=== PATIENT | female | born 1945 | race Caucasian/White ===

== ENCOUNTER 2016-12-31 07:44 | Emergency (ER) | payer MEDICARE, MEDICAID ==
[2016-12-31 07:57] VITALS: BP 114/64
--- NOTE | 2016-12-31 08:31 | UC ---
[facility], scribed for Stanislaw Greer MD on 12/31/16 at 0816 . General HPI - HPI Summary HPI Summary: 71yo female with cerebral palsy who vomited after breakfast today. Per group home paraprofessional , pt is also sleepier than baseline per group home paraprofessional. Pt denied any pain. BG after meal was in 178. Her baseline BG is around 90s. Hx includes cerebral Palsy, Mental Retardation, DM, and depression. - History of Current Complaint Stated Complaint: VOMITING,SLEEPY,DIABETIC Hx Obtained From: Family/Interior Designer - slurry tank tender Onset/Duration: Sudden Onset, Still Present Onset Severity: Mild Current Severity: None - Allergy/Home Medications Allergies/Adverse Reactions: Allergies Allergy/AdvReac Type Severity Reaction Status Date / Time Cephalexin [From Keflex] Allergy Intermediate Unknown Verified 12/31/16 07:50 Reaction Details Clomipramine [From Anafranil] Allergy Intermediate Unknown Verified 12/31/16 07: 50 Reaction Details Penicillins Allergy Intermediate Unknown Verified 12/31/16 07:50 Reaction Details Trazodone Allergy Unknown Verified 12/31/16 07:50 Reaction Details Home Medications: Home Medications Amlodipine Besylate [Norvasc 5 mg tab] 5 mg PO DAILY 12/31/16 [History Confirmed 12/31/16] Baclofen TAB* [Lioresal TAB*] 10 mg PO TID 12/31/16 [History Confirmed 12/31/16] Memantine TAB* [Namenda TAB*] 10 mg PO BID 12/31/16 [History Confirmed 12/31/16] Metformin ER (NF) 500 mg PO BID 12/31/16 [History Confirmed 12/31/16] Multiple Vitamins W/ Minerals [Multivitamin Adult] 1 chw PO DAILY 12/31/16 [ History Confirmed 12/31/16] PMH/Surg Hx/FS Hx/Imm Hx Endocrine History Of: Reports: Diabetes Cardiovascular History Of: Reports: Hypertension Denies: Congestive Heart Failure GI/ History Of: Denies: Renal Disease Cancer History Of: Reports: Breast Cancer - Surgical History Surgical History: Yes Surgery Procedure, Year, and Place: Right mastectomy 2004 - Family History Known Family History: Negative: Cardiac Disease, Hypertension - Social History Occupation: Disabled Lives: Alone Alcohol Use: None Substance Use Type: None Smoking Status (MU): Never Smoked Tobacco - Immunization History Most Recent Influenza Vaccination: UTD Most Recent Pneumonia Vaccination: UTD Review of Systems Constitutional: Negative Skin: Negative Eyes: Negative ENT: Negative Respiratory: Negative Cardiovascular: Negative Gastrointestinal: Vomiting Genitourinary: Negative Motor: Negative Neurovascular: Negative Musculoskeletal: Negative Neurological: Other - decreased alertness; lethargy Psychological: Negative All Other Systems Reviewed And Are Negative: Yes Physical Exam Triage Information Reviewed: Yes Appearance: Other: - decreased LOC, tired, but responds to voice Vital Signs: Initial Vital Signs Temp 99.5 F 12/31/16 07:51 Pulse 104 12/31/16 07:51 Resp 16 12/31/16 07:51 BP 114/64 12/31/16 07:51 Pulse Ox 96 12/31/16 07:51 Eyes: Positive: Conjunctiva Clear ENT: Positive: Normal ENT inspection, Other: - membranes dry Neck: Negative: Nuchal Rigidity Respiratory: Positive: Chest non-tender, Lungs clear, Normal breath sounds Cardiovascular: Positive: RRR, No Murmur Abdomen Description: Positive: Nontender Musculoskeletal: Positive: Other: - wheel chair bound with contracture, Neurological: Positive: Other: - Responds to voice, opens eyes, but tired, she has contractures, is in a wheelchair, MR, CP Psychological: Positive: Other: - more sleepy from baseline not her self per the aid Skin: Negative: rashes Course/Dx - Course Course Of Treatment: 71 yr old with AMS, vomiting, and MR with Dementia. Cannot assess her in Urgent care enough. I have recommended transport to the ER by ambulance, and the AMA was signed by the aid driving her. - Differential Dx - Multi-Symptom Provider Diagnoses: altered mental status, vomiting, dementia - Physician Notifications Discussed Patient Care With: Dr Wilkerson in the ER [facility] Time Discussed With Above Provider: 08:29 Discharge - Discharge Plan Condition: Good Disposition: AGAINST MEDICAL ADVICE The documentation as recorded by the [facility] accurately reflects the service I personally performed and the decisions made by me, Stanislaw Greer MD.
== END 2016-12-31 08:31 | disposition left against medical advice (07) ==
LOC: UCEAST 07:44
DX: R41.82 Altered mental status, unspecified (principal); R11.10 Vomiting, unspecified; R19.7 Diarrhea, unspecified; G80.9 Cerebral palsy, unspecified; F79 Unspecified intellectual disabilities; E11.9 Type 2 diabetes mellitus without complications; Z79.84 Long term (current) use of oral hypoglycemic drugs; I10 Essential (primary) hypertension; Z85.3 Personal history of malignant neoplasm of breast; Z88.1 Allergy status to other antibiotic agents; Z88.0 Allergy status to penicillin
CPT/HCPCS: 99212; G0463

== ENCOUNTER 2017-04-09 04:24 | Emergency (ER) | payer MEDICARE, MEDICAID ==
[2017-04-09 05:11] LABS: Hematocrit 35 % (35-47); Hemoglobin 11.4 g/dl (12.0-16.0); Mean Corpuscular HGB Conc 32 g/dl (31-36); Mean Corpuscular Hemoglobin 26 pg (27-31); Mean Corpuscular Volume 80 fL (80-97); Mean Platelet Volume 9 um3 (7.4-10.4); Red Blood Count 4.42 10^6/ul (4.0-5.4); Red Cell Distribution Width 18 % (10.5-15)
--- NOTE | 2017-04-09 05:17 | ED ---
Taya Fregoso Edward, scribed for Benedict Ferrara MD on 04/09/17 at 0428 . 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 PMHx Dementia, cerebral palsy. Lives in [facility]. Pt has had normal bowel movements, per EMS. LEVEL 5 CAVEAT DUE TO PT BEING UNRESPONSIVE - History Of Current Complaint Hx Obtained From: EMS Hx From Patient Unobtainable Due To: Dementia Associated Signs And Symptoms: Positive: Vomiting - Blood in emesis - Allergies/Home Medications Allergies/Adverse Reactions: Allergies Allergy/AdvReac Type Severity Reaction Status Date / Time Penicillins Allergy Intermediate Unknown Verified 12/31/16 07:50 Reaction Details ALINA Inhibitors Allergy Anaphylatic Verified 04/09/17 04:33 Shock Cephalosporins Allergy Unknown Verified 04/09/17 04:33 Reaction Details Tomato Allergy Hives Verified 01/01/17 17:39 Trazodone Allergy Unknown Verified 12/31/16 07:50 Reaction Details Tricyclic Antidepressants Allergy Unknown Verified 04/09/17 04:33 Reaction Details PMH/Surg Hx/FS Hx/Imm Hx Previously Healthy: No Endocrine/Hematology History: Reports: Hx Diabetes Denies: Hx Systemic Lupus Erythematosus Cardiovascular History: Reports: Hx Hypertension Denies: Hx Congestive Heart Failure History: Denies: Hx Dialysis, Hx Renal Disease Musculoskeletal History: Denies: Hx Rheumatoid Arthritis Sensory History: Reports: Hx Contacts or Glasses Denies: Hx Hearing Aid Opthamlomology History: Reports: Hx Contacts or Glasses Neurological History: Reports: Other Neuro Impairments/Disorders - cerebral palsy - Cancer History Cancer Type, Location and Year: breast 2005 Hx Chemotherapy: Yes - chemo 2004 per heel top lift splitter Hx Radiation Therapy: Yes - 2005 - Surgical History Surgery Procedure, Year, and Place: Right mastectomy 2004 - Family History Known Family History: Negative: Cardiac Disease, Hypertension - Social History Alcohol Use: None Substance Use Type: Reports: None Smoking Status (MU): Never Smoked Tobacco Review of Systems - ROS Summary Review of Systems Summary: LEVEL 5 CAVEAT DUE TO PT BEING UNRESPONSIVE Positive: Vomiting - Blood in vomit All Other Systems Reviewed And Are Negative: No Physical Exam Triage Information Reviewed: Yes Vital Signs Reviewed: Yes Completion Of Physical Exam Limited Due To: Dementia Appearance: Positive: No Pain Distress Skin: Positive: Warm Head/Face: Positive: Normal Head/Face Inspection Eyes: Positive: LESLIE ENT: Positive: Normal ENT inspection Neck: Positive: Supple Respiratory/Lung Sounds: Positive: Clear to Auscultation, Breath Sounds Present Cardiovascular: Positive: RRR Abdomen Description: Positive: Nontender, Soft Bowel Sounds: Positive: Present Diagnostics - Laboratory Result Diagrams: 04/09/17 04:51 04/09/17 04:51 Lab Statement: Any lab studies that have been ordered have been reviewed, and results considered in the medical decision making process. 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 PMHx Dementia, cerebral palsy. [facility] Pt has had normal bowel movements, per EMS. LEVEL 5 CAVEAT DUE TO PT BEING UNRESPONSIVE. Pt will be d/c home. - Diagnoses Provider Diagnoses: Vomiting Discharge - Discharge Plan Condition: Stable Disposition: ALF FACILITY Patient Education Materials: Acute Nausea and Vomiting (ED) Referrals: Rose Hebert MD [Primary Care Provider] - 3 Days (Please f/u in 2-3 days) The documentation as recorded by the [facility] accurately reflects the service I personally performed and the decisions made by , Benedict Ferrara MD.
[2017-04-09 05:27] LABS: Albumin 3.6 g/dL (3.2-5.2); BUN/Creatinine Ratio 38.8 (8-20); C Reactive Protein 2.48 mg/L (< 5.00); Calcium 8.7 mg/dL (8.6-10.3); EGFR African American 159.2 (>60); EGFR Non-African American 123.8 (>60); Globulin 2.4 g/dL (2-4); Total Bilirubin 0.2 mg/dL (0.2-1.0)
[2017-04-09 06:49] VITALS: BP 144/65
== END 2017-04-09 07:51 ==
LOC: ED 04:24
DX: K92.0 Hematemesis (principal)
CPT/HCPCS: 36415; 80053; 83605; 83690; 83735; 85025; 86140; 99283

== ENCOUNTER 2017-05-29 21:22 | Emergency (ER) | payer MEDICARE, MEDICAID ==
--- NOTE | 2017-05-29 22:28 | ED ---
Medical Screening - HPI Summary HPI Summary: Pt is a resident at [facility] and presents here tonight for accidental administration of another's resident's medications. These include: lamotrigine 100mg, calcium with D 500mg, hydroxyzine hcl 25mg, phenobarbitol 97.2mg, seroquel XR 50mg. Of note, she typically takes namenda 10mg 2 x day, zoloft 150mg, baclofen 10mg 3 x day. She takes metformin 500mg 1 x day with food (well controlled per staff) . Also pravastatin and ASA. She is on a variety of other medications, 2 antibiotics for prophylactic treatment of UTI's and others are PRN. Staff is concerned she's more sleepy since taking these. Otherwise, no complaints. - History of Current Complaint Chief Complaint: EDOverdose Stated Complaint: OVERDOSE Time Seen by Provider: 05/29/17 21:54 PMH/Surg Hx/FS Hx/Imm Hx Previously Healthy: Yes Endocrine/Hematology History: Reports: Hx Diabetes - controlled w/ metformin 500mg 1 x day and lifestyle Denies: Hx Systemic Lupus Erythematosus Cardiovascular History: Reports: Hx Hypercholesterolemia - ?takes statin, Hx Hypertension - med d/c'd Denies: Hx Congestive Heart Failure History: Denies: Hx Dialysis, Hx Renal Disease Musculoskeletal History: Denies: Hx Rheumatoid Arthritis Sensory History: Reports: Hx Contacts or Glasses Denies: Hx Hearing Aid Opthamlomology History: Reports: Hx Contacts or Glasses Neurological History: Reports: Other Neuro Impairments/Disorders - cerebral palsy - takes baclofen Psychiatric History: Reports: Hx Depression - zoloft - Cancer History Cancer Type, Location and Year: breast 2004 Hx Chemotherapy: Yes - chemo 2004 per utility accounts director Hx Radiation Therapy: Yes - 2004 - Surgical History Surgery Procedure, Year, and Place: Right mastectomy 2004 Infectious Disease History: No Infectious Disease History: Denies: Traveled Outside the [place] in Last 30 Days - Family History Known Family History: Negative: Cardiac Disease, Hypertension - Social History Occupation: Disabled Lives: Assisted Living Alcohol Use: None Hx Substance Use: No Substance Use Type: Reports: None Hx Tobacco Use: No Smoking Status (MU): Never Smoked Tobacco Review of Systems - ROS Summary Review of Systems Summary: Level 5 caveat - pt only responds to physical stimuli w/ moaning - unable to follow commands Positive: Fatigue - as in HPI All Other Systems Reviewed And Are Negative: Yes Physical Exam Triage Information Reviewed: Yes Vital Signs On Initial Exam: Initial Vitals Pulse Pulse Ox 78 99 05/29/17 21:31 05/29/17 21:31 Vital Signs Reviewed: Yes Appearance: Positive: No Pain Distress - resting comfortably on stretcher, breathing easily and vitals WNL, Well-Nourished Skin: Positive: Warm, Dry Head/Face: Positive: Normal Head/Face Inspection - no gross deformity Eyes: Positive: LESLIE - had to manually lift each lid to check pupils as she does not do this with verbal or physical stimuli ENT: Positive: Hearing grossly normal - assumed as she responds with moaning to noise, Pharynx normal - mucosa moist Neck: Positive: Supple Respiratory/Lung Sounds: Positive: Clear to Auscultation, Breath Sounds Present. Negative: Rales, Rhonchi, Stridor, Wheezes Cardiovascular: Positive: Normal, RRR, Pulses are Symmetrical in both Upper and Lower Extremities, S1, S2. Negative: Murmur, Rub, Leg Edema Left, Leg Edema Right Abdomen Description: Positive: No Organomegaly, Soft Musculoskeletal: Positive: Other - hands appeared contracted Neurological: Positive: Other - heart rate and resp rate increase with sternal rub Psychiatric: Positive: Other - unable to assess given current state but staff reports she's typically chatty and easy to rouse even after asleep Diagnostics - Vital Signs Vital Signs Temp Pulse Resp BP Pulse Ox 05/29/17 21:50 98.5 F 75 12 129/58 100 05/29/17 21:33 129/58 05/29/17 21:31 78 99 - Laboratory Result Diagrams: 05/30/17 02:05 05/30/17 02:05 Lab Statement: Any lab studies that have been ordered have been reviewed, and results considered in the medical decision making process. Re-Evaluation - Re-Evaluation First Eval Re-Evaluation Time: 07:55 - Pt is laughing, smiling, responsive, acting her usual self per aide. Dr. Ram consulted. Change: Improved Course/Dx - Course Course Of Treatment: Spoke w/ Annetta at poison control - advised pt just needs to be monitored until meds wear off as this is not overdose but rather administration of medications she's simply not accustomed to taking - explained we are ordering ECG and glucose POC assessement - no further action at this time. Signed out to Dr. Boyd. - Diagnoses Provider Diagnoses: Drug ingestion, accidental Discharge - Discharge Plan Condition: Good Disposition: HOME Patient Education Materials: Medication Safety for Children (ED) Referrals: Rose Hebert MD [Primary Care Provider] - Additional Instructions: Please note that the discharge instructions describe medication safety in children. The child aspect does not pertain to Ms Paulino, but the symptoms to watch for, do pertain to Ms Paulino. Ms Paulino was observed in the ER for 11 hours after the accidental overdose of phenobarbital, lamotrigine, hydroxyzine, calcium and seroquel. After the 11 hrs, she was responsive, communicative and back to her baseline per the aide who had been with her all night. She was seen by the hospitalist physician, Dr. Ram, who agreed with Dr. Boyd that she was safe for discharge. She may resume her usual activities. She should resume her usual medications. Return to the ER if she has any new or worsening symptoms.
[2017-05-30] MEDS ORDERED: NS 0.9% 1000 ML* 1,000 ML IV ONE (01:43)
[2017-05-30 02:32] LABS: Hematocrit 35 % (35-47); Hemoglobin 10.9 g/dl (12.0-16.0); Mean Corpuscular HGB Conc 32 g/dl (31-36); Mean Corpuscular Hemoglobin 25 pg (27-31); Mean Corpuscular Volume 79 fL (80-97); Mean Platelet Volume 9 um3 (7.4-10.4); Red Blood Count 4.36 10^6/ul (4.0-5.4); Red Cell Distribution Width 16 % (10.5-15); White Blood Count 5.3 10^3/ul (3.5-10.8)
[2017-05-30 02:43] LABS: ALT 10 U/L (7-52); AST 15 U/L (13-39); Albumin 3.7 g/dL (3.2-5.2); Alkaline Phosphatase 40 U/L (34-104); Anion Gap 6 mmol/L (2-11); Blood Urea Nitrogen 15 mg/dL (6-24); CO2 Carbon Dioxide 27 mmol/L (22-32); Calcium 8.9 mg/dL (8.6-10.3); Chloride 107 mmol/L (101-111); Globulin 2.6 g/dL (2-4); Glucose 101 mg/dL (70-100); Sodium 140 mmol/L (133-145); Total Protein 6.3 g/dL (6.4-8.9)
--- NOTE | 2017-05-30 08:21 | ED ---
Bridgett Fregoso Thomas, scribed for Tonia Body MD on 05/30/17 at 0433 . Progress - Progress Note Progress Note: The patient is a sign out from Jenni CIFUENTES at shift change pending disposition. With tactile stimulation, she says mmm but does not open her eyes. Her BP is 96/50, her pulse is 70, and her SaO2 is 100. I consulted with Dr. Peralta, continuous mining machine company miner, who agrees to admit the patient for observation to [place] [id number]: pt is awake, responsive, acting her usual self, can be DC'd back to her long term. Dx: accidental drug ingestion condition: stable disposition: home Re-Evaluation - Re-Evaluation First Eval Re-Evaluation Time: 07:55 - Pt is laughing, smiling, responsive, acting her usual self per aide. Dr. Ram consulted. Change: Improved Course/Dx - Course Course Of Treatment: Pt was observed. Labs and EKG were obtained. Pt resumed normal mental status while in ED, able to be DC'd to her long term. - Diagnoses Provider Diagnoses: Drug ingestion, accidental The documentation as recorded by the Bridgett monet Thomas accurately reflects the service I personally performed and the decisions made by Oliver cox Barbara J, MD.
[2017-05-30 08:54] VITALS: BP 84/38
--- NOTE | 2017-05-30 09:38 | CONS ---
CONSULTATION REPORT: DATE OF CONSULT: 05/30/17 HISTORY OF PRESENT ILLNESS: The patient is a 71-year-old female, resident of [facility] with past medical history of dementia, developmental delay, depression, hypertension, on no meds, hyperlipidemia, diabetes, right breast cancer, GERD, who was given another patient's medications at approximately 9 p.m. last night, which included Lamictal 100 mg, phenobarbital 97.2 mg, hydroxyzine 25 mg, calcium 500 mg, Seroquel extended release 50 mg. This was apparently on top of her regular meds, which include Zoloft 150 mg, Bactrim rotating with nitrofurantoin, baclofen 10 mg t.i.d., metformin twice a day, and Namenda 10 mg b.i.d. She was brought to the emergency room for concern for sedation, altered mental status, was not readily arousable overnight. She had an EKG done, which showed a QTc of 446, T-wave inversion in V1, heart rate of 76. Her blood pressures were on the low side overnight in the mostly 90s/50. She was afebrile. Otherwise hemodynamically stable with heart rates in the 60s to 70s. At the time of my evaluation at 7:35 a.m., the patient had become easily arousable, opening her eyes, having conversations with the physician aide, Gamal Pittman, who has been with her overnight and remarks that she is back to her baseline self. She knows her name, is joking about her boyfriend and per Gamal Pittman is completely back to her normal self. I have discussed with emergency room physician who had been in contact with Poison Control overnight in terms of the desired length of evaluation that I think the patient does not need to be further admitted to the hospital given her rapid improvement in mental status and no concerning hemodynamic instability, and that patient can be discharged back to [facility] this a.m. PHYSICAL EXAM: General: No acute distress. Easily arousable. HEENT: No scleral icterus. Opens eyes easily. Neck: Supple. No cervical lymphadenopathy. Cardiovascular: Regular rate and rhythm. No murmurs, rubs, or gallops. Respiratory: Clear to auscultation bilaterally with no wheezing, rales, or rhonchi. Abdomen: Soft, nontender, nondistended. No guarding. No rebound. No Glover's sign. Extremities: Warm and well perfused. No peripheral edema. Skin: No lesions noted. Neuro: Oriented to person. DIAGNOSTIC STUDIES/LABORATORY DATA: Labs are significant for a white count of 5.3, hemoglobin 10.9, platelets 180, hematocrit 35. Sodium 140, potassium 4.0, chloride 107, bicarbonate 27, BUN 15, creatinine 0.60, glucose 101. IMPRESSION: Robb Paulino is a 71-year-old female with past medical history of developmental delay, dementia, multiple other comorbidities, taking Zoloft 150 mg daily, who was accidentally given Lamictal 100 mg, phenobarbital 97.2 mg, hydroxyzine 25 mg, and Seroquel extended release 50 mg (a different patient's medications). Initially was having concern for an altered mental status and lethargy, which has now resolved. She is hemodynamically stable. No conduction abnormalities. QTc is 446, within normal limits for a female. The patient is considered stable for discharge back to [facility]. Thank you for this interesting consult. [id number]/[facility] #: [id number] [facility] HOSPITALGigi
== END 2017-05-30 08:30 | disposition home or self-care (01) ==
LOC: ED 21:22
DX: T50.905A Adverse effect of unspecified drugs, medicaments and biological substances, initial encounter (principal); Y92.9 Unspecified place or not applicable; R53.83 Other fatigue; E11.9 Type 2 diabetes mellitus without complications
CPT/HCPCS: 36415; 80053; 80184; 85025; 93005; 96360; 99285

== ENCOUNTER 2018-09-27 19:49 | Emergency (ER) | payer MEDICARE, MEDICAID | END 2018-09-27 19:50 | disposition left against medical advice (07) | LOC: UCEAST 19:49 | DX: Z53.21 Procedure and treatment not carried out due to patient leaving prior to being seen by health care provider (principal) ==

== ENCOUNTER 2018-09-27 21:05 | Emergency (ER) | payer MEDICARE, MEDICAID ==
--- NOTE | 2018-09-27 21:58 | ED ---
Upper Extremity Pain - HPI Summary HPI Summary: 73-year-old [facility] patient with history of MR and dementia who is minimally verbal presents with 3 days history of left hand swelling. No definite injury. Caregiver reports that there appears to be pain when it is touched. There is no fever, but has been some redness. They report that hand contractures are chronic and that she is fully wheelchair bound. Patient has not been feeding herself as usual with the tender hand. Patient is unable to contribute to medical history and his level V caveat due to dementia. There is said to of called the primary care physician who reported that she was comfort care measures however there is no paperwork indicating this in her folder. - History of Current Complaint Chief Complaint: EDGeneral Stated Complaint: BOTH HANDS SWOLLEN Time Seen by Provider: 09/27/18 21:33 Hx Obtained From: Family/Principal Account Clerk, Medical Records - No DNR or MO LST form is present. Hx From Patient Unobtainable Due To: Dementia - Allergies/Home Medications Allergies/Adverse Reactions: Allergies Allergy/AdvReac Type Severity Reaction Status Date / Time OLAYINKA Inhibitors Allergy Anaphylatic Verified 09/27/18 21:19 Shock Cephalosporins Allergy Unknown Verified 09/27/18 21:19 Reaction Details Penicillins Allergy Unknown Verified 09/27/18 21:19 Reaction Details tomato Allergy Hives Verified 09/27/18 21:19 trazodone Allergy Unknown Verified 09/27/18 21:19 Reaction Details Tricyclic Compounds Allergy Unknown Verified 09/27/18 21:19 Reaction Details PMH/Surg Hx/FS Hx/Imm Hx Previously Healthy: No - MR, dementia, nonverbal Endocrine/Hematology History: Reports: Hx Diabetes - controlled w/ metformin 500mg 1 x day and lifestyle Denies: Hx Systemic Lupus Erythematosus Cardiovascular History: Reports: Hx Hypercholesterolemia - ?takes statin, Hx Hypertension - med d/c'd Denies: Hx Congestive Heart Failure History: Denies: Hx Dialysis, Hx Renal Disease Musculoskeletal History: Denies: Hx Rheumatoid Arthritis Sensory History: Reports: Hx Contacts or Glasses Denies: Hx Hearing Aid Opthamlomology History: Reports: Hx Contacts or Glasses Neurological History: Reports: Other Neuro Impairments/Disorders - cerebral palsy - takes baclofen Psychiatric History: Reports: Hx Depression - zoloft - Cancer History Cancer Type, Location and Year: breast 2005 Hx Chemotherapy: Yes - chemo 2005 per oyster fisherman Hx Radiation Therapy: Yes - 2004 - Surgical History Surgery Procedure, Year, and Place: Right mastectomy 2004 Infectious Disease History: No Infectious Disease History: Denies: Traveled Outside the [place] in Last 30 Days - Family History Known Family History: Negative: Cardiac Disease, Hypertension - Social History Alcohol Use: None Hx Substance Use: No Substance Use Type: Reports: None Hx Tobacco Use: No Smoking Status (MU): Never Smoked Tobacco Review of Systems All Other Systems Reviewed And Are Negative: No - Comments Additional Review of Systems Comments: Unable to obtain due to dementia Physical Exam Triage Information Reviewed: Yes Vital Signs On Initial Exam: Initial Vitals Temp Pulse Resp BP Pulse Ox 98.7 F 90 16 143/91 97 09/27/18 21:13 09/27/18 21:13 09/27/18 21:13 09/27/18 21:13 09/27/18 21:13 Vital Signs Reviewed: Yes Appearance: Positive: Pain Distress - When left hand is manipulated Skin: Positive: Warm, Dry, Other - There is minimal skin breakdown at her contractured left hand at the base of the long finger without redness. Head/Face: Positive: Normal Head/Face Inspection Eyes: Positive: EOMI ENT: Positive: Normal ENT inspection Respiratory/Lung Sounds: Positive: Clear to Auscultation Cardiovascular: Positive: RRR Abdomen Description: Positive: Nontender Musculoskeletal: Positive: Other - Tenderness dorsally in the left hand over the metacarpals of the long and ring fingers without deformity. Minimal redness and mild to moderate swelling. No pain with manipulation of the elbow or forearm. No pain with manipulation of the left shoulder. Neurological: Positive: Other - Patient will respond verbally with "oww" only. Otherwise keeps eyes closed but does move upper extremities spontaneously. Contractured hands and feet. - Stow Coma Scale Best Eye Response: 2 - To Pain Best Motor Response: 5 - Purposeful Movement Best Verbal Response: 4 - Confused Coma Scale Total: 11 Diagnostics - Vital Signs Vital Signs Temp Pulse Resp BP Pulse Ox 09/27/18 21:52 89 95 09/27/18 21:33 92 132/71 97 09/27/18 21:13 98.7 F 90 16 143/91 97 - Laboratory Lab Statement: Any lab studies that have been ordered have been reviewed, and results considered in the medical decision making process. - Radiology left hand Radiology Interpretation Completed By: ED Physician - No acute fracture, limited by contracture Course/Dx - Course Course Of Treatment: Nurse's notes reviewed. Patient with mild swelling to the dorsum of the left hand with contractures in both hands. She has no pain in the wrist, elbow/forearm or shoulder. There is no evidence for infection. X- rays are negative. Appears to be contused or possibly arthritic. Patient is known to be comfort care measures her primary care physician. Olayinka wrap applied and discharged to follow up on Tylenol. - Diagnoses Differential Diagnosis/HQI/PQRI: Positive: Contusion, Fracture (Closed), Strain , Sprain Provider Diagnoses: Contusion of left hand, Dementia Discharge - Sign-Out/Discharge Documenting (check all that apply): Patient Departure - Discharge Plan Condition: Stable Disposition: HOME Patient Education Materials: Contusion in Adults (ED) Referrals: Rose Hebert MD [Primary Care Provider] - Additional Instructions: Call primary care physician first thing in the morning to schedule prompt follow -up. Olayinka wrap for comfort. Ice as needed. Ensure that this does not get confused while sitting in the wheelchair. Return if worse or other concerns. Tylenol 500 mg every 6 hours as needed for discomfort. - Billing Disposition and Condition Condition: STABLE Disposition: Home - Attestation Statements Document Initiated by Scribe: No
[2018-09-27] MEDS ORDERED: Acetaminophen TAB* 325 MG PO ONE (22:46)
[2018-09-27 23:56] VITALS: BP 120/63
== END 2018-09-28 | disposition home or self-care (01) ==
LOC: ED 21:05
DX: S60.222A Contusion of left hand, initial encounter (principal); X58.XXXA Exposure to other specified factors, initial encounter; Y92.9 Unspecified place or not applicable; F03.90 Unspecified dementia, unspecified severity, without behavioral disturbance, psychotic disturbance, mood disturbance, and anxiety; F79 Unspecified intellectual disabilities; E11.9 Type 2 diabetes mellitus without complications; Z79.84 Long term (current) use of oral hypoglycemic drugs; F32.9 Major depressive disorder, single episode, unspecified; Z88.1 Allergy status to other antibiotic agents; Z88.0 Allergy status to penicillin; Z88.8 Allergy status to other drugs, medicaments and biological substances
CPT/HCPCS: 99282

== ENCOUNTER 2019-03-18 08:41 | Emergency (ER) | payer MEDICARE, MEDICAID ==
[2019-03-18 08:51] VITALS: BP 125/73
--- NOTE | 2019-03-18 09:12 | UC ---
Lower Extremity/Ankle HPI - HPI Summary HPI Summary: patient is a 73-year-old female who presents to the urgent care with caregiver with a chief complaint of a red and painful right toe. They have noticed his symptoms started yesterday and today he became worse therefore they decided to come to the urgent care for further assessment. No fevers no chills patient is wheelchair-bound. - History of Current Complaint Chief Complaint: UCLowerExtremity Stated Complaint: RED TOE Time Seen by Provider: 03/18/19 08:55 Hx Obtained From: Family/Music Therapist [employer] Onset/Duration: Gradual Onset Pain Intensity: 3 - Allergies/Home Medications Allergies/Adverse Reactions: Allergies Allergy/AdvReac Type Severity Reaction Status Date / Time ALINA Inhibitors Allergy Anaphylatic Verified 03/18/19 08:52 Shock Cephalosporins Allergy Unknown Verified 03/18/19 08:52 Reaction Details Penicillins Allergy Unknown Verified 03/18/19 08:52 Reaction Details tomato Allergy Hives Verified 03/18/19 08:52 trazodone Allergy Unknown Verified 03/18/19 08:52 Reaction Details Tricyclic Compounds Allergy Unknown Verified 03/18/19 08:52 Reaction Details Home Medications: Home Medications Haloperidol CONC. EMY (NF) [Haloperidol CONC. SOLUTION (NF)] 1 ml PO DAILY 03/18 [History Confirmed 03/18/19] PMH/Surg Hx/FS Hx/Imm Hx Endocrine History: Diabetes, Hypothyroidism Neurological History: Dementia - Surgical History Surgical History: Yes Surgery Procedure, Year, and Place: Right mastectomy 2004 - Family History Known Family History: Positive: Non-Contributory Negative: Cardiac Disease, Hypertension - Social History Alcohol Use: None Substance Use Type: None Smoking Status (MU): Never Smoked Tobacco - Immunization History Most Recent Influenza Vaccination: UTD Most Recent Pneumonia Vaccination: UTD Review of Systems All Other Systems Reviewed And Are Negative: Yes Constitutional: Positive: Negative Skin: Positive: Other - toe pain Eyes: Positive: Negative ENT: Positive: Negative Respiratory: Positive: Negative Cardiovascular: Positive: Negative Gastrointestinal: Positive: Negative Genitourinary: Positive: Negative Motor: Positive: Negative Neurovascular: Positive: Negative Musculoskeletal: Positive: Negative Neurological: Positive: Negative Psychological: Positive: Negative Is Patient Immunocompromised?: Yes Physical Exam - Summary Physical Exam Summary: VITAL SIGNS: Reviewed. GENERAL: Patient is not in any acute respiratory distress. HEAD AND FACE: No signs of trauma. No ecchymosis, hematomas or skull depressions. No sinus tenderness. EYES: PERRLA, EOMI x 2, No injected conjunctiva, no nystagmus. EARS: Hearing grossly intact. Ear canals and tympanic membranes are within normal limits. MOUTH: Oropharynx within normal limits. NECK: Supple, trachea is midline, no adenopathy, no JVD, no carotid bruit, no c- spine tenderness, neck with full ROM. CHEST: Symmetric, no tenderness at palpation LUNGS: Clear to auscultation bilaterally. No wheezing or crackles. CVS: Regular rate and rhythm, S1 and S2 present, no murmurs or gallops appreciated. ABDOMEN: Soft, non-tender. No signs of distention. No rebound no guarding, and no masses palpated. Bowel sounds are normal. EXTREMITIES: lower extremity contractures. right toe with erythema surrounding the medial aspect of the great toe. No abscess formation. NEURO: Alert not oriented SKIN: Dry and warm Triage Information Reviewed: Yes Appearance: Well-Appearing Vital Signs: Initial Vital Signs Temp 98 F 03/18/19 08:48 Pulse 75 03/18/19 08:48 Resp 18 03/18/19 08:48 BP 125/73 03/18/19 08:48 Pulse Ox 100 03/18/19 08:48 Vital Signs Reviewed: Yes Lower Extremity Course/Dx - Course Course Of Treatment: he since that the patient has an infection in the right side of the toe. He doesn't have a full ingrown toenail. I can't small area of the nail and a little bit of pus came out. Therefore I apply bacitracin and the patient was placed in Bactrim, follow-up with the primary care physician on Wednesday. She will also follow-up with her stretcher helper and . The patient and the patient's caregiver were given instructions to return to the emergency department if any symptoms worsen. They understand and agree. - Differential Dx/Diagnosis Provider Diagnosis: Cellulitis of great toe Discharge - Sign-Out/Discharge Documenting (check all that apply): Patient Departure All imaging exams completed and their final reports reviewed: No Studies - Discharge Plan Condition: Stable Disposition: HOME Prescriptions: Sulfamethox/Trimethoprim DS* [Bactrim DS 800/160 TAB*] 1 tab PO BID #20 tab Patient Education Materials: Cellulitis (DC) Referrals: Amada Felton MD [Primary Care Provider] - Additional Instructions: Take medications as instructed Increase your fluid intake F/U with PCP in the next 2-3 days Return to the UC if symptoms worsen - Billing Disposition and Condition Condition: STABLE Disposition: Home
== END 2019-03-18 09:15 | disposition home or self-care (01) ==
LOC: UCEAST 08:41
DX: L03.031 Cellulitis of right toe (principal); E11.9 Type 2 diabetes mellitus without complications; E03.9 Hypothyroidism, unspecified; F03.90 Unspecified dementia, unspecified severity, without behavioral disturbance, psychotic disturbance, mood disturbance, and anxiety; Z88.0 Allergy status to penicillin; Z90.11 Acquired absence of right breast and nipple
CPT/HCPCS: 99212; G0463

== ENCOUNTER 2019-04-02 20:36 | Inpatient (IN) | payer MEDICARE, MEDICAID ==
[2019-04-02] MEDS ORDERED: NS 0.9% 1000 ML** 1,000 ML IV.FLUID IV ONE (20:50)
[2019-04-02] MEDS ORDERED: Acetaminophen SUPP* 650 MG SUPP PR ONE (20:54)
--- NOTE | 2019-04-02 21:01 | ED ---
HPI Febrile Illness - HPI Summary HPI Summary: LEVEL 5 CAVEAT DUE TO NON-VERBAL STATE 73 year old F brought to [facility] by EMS accompanied by caregiver with a chief complaint of general illness and fever since earlier this evening, 04/02/19. Caregiver reports fever, vomiting, cold to touch, shaking, loss of appetite, and lack of drinking liquids. Caregiver reports patient recently stopped taking chronic abx. Patient denies any body pain or abdomen pain. - History of Current Complaint Time Seen by Provider: 04/02/19 20:45 Hx Obtained From: Family/Chipping Machine Operator Hx From Patient Unobtainable Due To: Other - nonverbal- did not respond to questions but seemed to respond to palpation Onset/Duration: Started Hours Ago, Still Present Timing: Constant Aggravating Factors: Nothing Alleviating Factors: Nothing Associated Signs and Symptoms: Vomiting, Other: - reports fever, cold to touch, shaking, loss of appetite, and lack of drinking liquids denies any body pain or abdomen pain. - Additional Pertinent History Primary Care Physician: SALVADOR - Allergy/Home Medications Allergies/Adverse Reactions: Allergies Allergy/AdvReac Type Severity Reaction Status Date / Time ALINA Inhibitors Allergy Anaphylatic Verified 03/18/19 08:52 Shock Cephalosporins Allergy Unknown Verified 03/18/19 08:52 Reaction Details Penicillins Allergy Unknown Verified 03/18/19 08:52 Reaction Details tomato Allergy Hives Verified 03/18/19 08:52 trazodone Allergy Unknown Verified 03/18/19 08:52 Reaction Details Tricyclic Compounds Allergy Unknown Verified 03/18/19 08:52 Reaction Details PMH/Surg Hx/FS Hx/Imm Hx Previously Healthy: No - LEVEL 5 CAVEAT Endocrine/Hematology History: Reports: Hx Diabetes - controlled w/ metformin 500mg 1 x day and lifestyle Denies: Hx Systemic Lupus Erythematosus Cardiovascular History: Reports: Hx Hypercholesterolemia - ?takes statin, Hx Hypertension - med d/c'd Denies: Hx Congestive Heart Failure History: Denies: Hx Dialysis, Hx Renal Disease Musculoskeletal History: Denies: Hx Rheumatoid Arthritis Sensory History: Reports: Hx Contacts or Glasses Denies: Hx Hearing Aid Opthamlomology History: Reports: Hx Contacts or Glasses Neurological History: Reports: Other Neuro Impairments/Disorders - cerebral palsy - takes baclofen Psychiatric History: Reports: Hx Depression - zoloft - Cancer History Cancer Type, Location and Year: breast 2004 Hx Chemotherapy: Yes - chemo 2005 per distribution center manager Hx Radiation Therapy: Yes - 2004 - Surgical History Surgery Procedure, Year, and Place: Right mastectomy 2004 Infectious Disease History: Denies: Traveled Outside the [place] in Last 30 Days - Family History Known Family History: Positive: Non-Contributory Negative: Cardiac Disease, Hypertension - Social History Alcohol Use: None Hx Substance Use: No Substance Use Type: Reports: None Hx Tobacco Use: No Smoking Status (MU): Never Smoked Tobacco Review of Systems - ROS Summary Review of Systems Summary: LEVEL 5 CAVEAT DUE TO NON-VERBAL STATE Positive: Fever, Other - shaking, cold to touch Positive: Vomiting All Other Systems Reviewed And Are Negative: No Physical Exam - Summary Physical Exam Summary: PATIENT IS A LEVEL 5 CAVEAT DUE TO NON-VERBAL. Appearance: Developmentally delayed women lying in bed in no acute distress Skin: Warm, dry, no obvious rash Eyes: sclera anicteric, no conjunctival pallor ENT: mucous membranes moist Neck: deferred Respiratory: No signs of respiratory distress Cardiovascular: Appears well perfused, pulses are nml Abdomen: deferred Musculoskeletal: Moving all 4 extremities without obvious discomfort Neurological: Did not answer questions Psychiatric: affect is normal, does not appear anxious or depressed Triage Information Reviewed: Yes Vital Signs Reviewed: Yes Diagnostics - Laboratory Result Diagrams: 04/04/19 04:19 04/04/19 04:19 Lab Statement: Any lab studies that have been ordered have been reviewed, and results considered in the medical decision making process. Course/Dx - Course Course Of Treatment: LEVEL 5 CAVEAT DUE TO NON-VERBAL STATE. 73 year old F brought to [facility] by EMS accompanied by caregiver with a chief complaint of general illness and fever since earlier this evening, 04/02/19. Caregiver reports fever, vomiting, cold to touch, shaking, loss of appetite, and lack of drinking liquids. Caregiver reports patient recently stopped taking chronic abx. Patient denies any body pain or abdomen pain. Physical exam reveals no abnormalities developmentally delayed women, no acute distress, and did not answer questions. Blood work shows no abnormalities except for MCV 79 L, MCH 26 L, RDW 17 H, Absolute Lymphs 0.2 L, Potassium 3.3 L, BUN/Creatinine Ratio 31.1 H, Glucose 113 H, and Lactic Acid 2.4 H. Urinalysis shows no abnormalities except for Urine Nitrate Positive A, Ur Leukocyte Esterase Trace A, Urine WBC 1+ (6-10/hpf ) A, Ur Squamous Epith Cells Present A, Urine Bacteria 3+ A, and Urine Ascorbic Acid A. Patient was given 166.668 mls/hr vanomycin Hcl in sodium chloride, 650 mg acetaminophen, 100 mls/hr levofloxacin/dextrose, and 1500 ml saline IV. Chest X-Ray reveals no acute process. Physician discusses admission with Dr. Salgado, who accepts patient for admission. Patient will be admitted. - Diagnoses Provider Diagnoses: Fever, UTI (urinary tract infection) - Provider Notifications Discussed Care Of Patient With: Adam Salgado Time Discussed With Above Provider: 04:30 Instructed by Provider To: Admit As Inpatient Discharge - Sign-Out/Discharge Documenting (check all that apply): Patient Departure - admit Patient Received Moderate/Deep Sedation with Procedure: No - Discharge Plan Condition: Fair Disposition: ADMITTED TO [facility] - Billing Disposition and Condition Condition: FAIR Disposition: Admitted to [facility] - Attestation Statements Document Initiated by Scribe: Yes Documenting Scribe: Naty Mahoney Provider For Whom Scribe is Documenting (Include Credential): Dr. Krishna Estrada MD Scribe Attestation: Naty Fregoso, scribed for Dr. Krishna Estrada MD on 04/04/19 at 1808. Scribe Documentation Reviewed: Yes Provider Attestation: The documentation as recorded by the Naty monet accurately reflects the service I personally performed and the decisions made by me, Dr. Krishna Estrada MD Status of Scribe Document: Viewed
[2019-04-02 21:35] LABS: ABS Lymphocytes 0.2 10^3/ul (1.0-4.8); Eosinophil % 0.1 %; Hematocrit 37 % (35-47); Hemoglobin 12.3 g/dL (12.0-16.0); Lymphocyte % 3.8 %; Mean Corpuscular HGB Conc 33 g/dL (31-36); Mean Corpuscular Hemoglobin 26 pg (27-31); Mean Corpuscular Volume 79 fL (80-97); Mean Platelet Volume 7.9 fL (7.4-10.4); Platelet Count 177 10^3/uL (150-450); Red Blood Count 4.76 10^6 /uL (3.70-4.87); Red Cell Distribution Width 17 % (10-15); White Blood Count 6.3 10^3/uL (3.5-10.8)
[2019-04-02 21:38] LABS: Urine Appearance Cloudy; Urine Bacteria 3+ (Absent); Urine Bilirubin Negative (Negative); Urine Blood Negative (Negative); Urine Color Yellow; Urine Glucose Negative (Negative); Urine Ketones Negative (Negative); Urine Nitrite Positive (Negative); Urine Protein Negative (Negative); Urine Red Blood Cell Absent (Absent); Urine Specific Gravity 1.014 (1.010-1.030); Urine Squamous Epithelial Cell Present (Absent); Urine Urobilinogen Negative (Negative); Urine White Blood Cell 1+(6-10/hpf) (Absent)
[2019-04-02 21:47] LABS: Activated Partial Thrombo Time 32.1 seconds (26.0-38.0); INR 1.02 (0.82-1.09)
[2019-04-02 21:53] LABS: Albumin 4.2 g/dL (3.2-5.2); Albumin/Globulin Ratio 1.5 (1-3); BUN/Creatinine Ratio 31.1 (8-20); C Reactive Protein 5.52 mg/L (<8.01); Calcium 9.1 mg/dL (8.6-10.3); EGFR African American 115.7 (>60); EGFR Non-African American 95.6 (>60); Globulin 2.8 g/dL (2-4); Potassium 3.3 mmol/L (3.5-5.0); Total Bilirubin 0.3 mg/dL (0.2-1.0)
[2019-04-02] MEDS ORDERED: Levofloxacin 500 MG IVPREMIX(* 500 MG/100 ML BAG IVPB ONE (23:54)
[2019-04-03] MEDS ORDERED: Magnesium Hydroxide LIQ* 30 ML UDC PO PRN (03:57)
[2019-04-03] MEDS ORDERED: Hydrocortisone 1% CREAM* 30 GM TUBE TOPICAL PRN (03:57)
[2019-04-03] MEDS ORDERED: Bisacodyl SUPP* 10 MG SUPP PR PRN (03:57)
[2019-04-03] MEDS ORDERED: guaiFENesin LIQ* 100 MG/5 ML UDC PO PRN (03:57)
[2019-04-03] MEDS ORDERED: Levofloxacin 750 MG IVPREMIX(* 750 MG/150 ML BAG IVPB SCH (04:00)
[2019-04-03] MEDS ORDERED: Vancomycin(*) 1,000 MG in NS 0.9% 250 ML* 250 ML IVPB ONE (06:00)
[2019-04-03] MEDS ORDERED: Vancomycin per Pharmacy* NOTE FOLLOW UP PRN (06:45)
--- NOTE | 2019-04-03 08:02 | HP ---
CC: Dr. Amada Felton * ADMISSION HISTORY AND PHYSICAL: DATE OF ADMISSION: 04/03/19 PROVIDER: Adam Salgado MD PRIMARY CARE PHYSICIAN: Dr. Amada Felton. CHIEF COMPLAINT: Fever. HISTORY OF PRESENT ILLNESS: This is a 73-year-old female with past medical history of developmental delay, cerebral palsy, dementia, diabetes, who was brought in for evaluation of fever. The patient herself is not very talkative and does not give much history due to her cerebral palsy. At baseline, she does say "yes" or "no" according to the staff and converses minimally. According to the staff, the patient had fever, vomiting with shaking and has had lack of appetite for the last few days. She was brought to the ER for further evaluation. The patient herself kept denying any symptoms and was screaming every time somebody touched her, but according to the caregiver that is her normal response to even gentle touch. According to the caregiver, she was recently diagnosed with cellulitis of her feet on the right foot and she completed antibiotics for that. She also has a history of recurrent UTIs, for which they stopped giving antibiotics altogether few months ago. There was no other bleeding difficulty that the caregiver noticed on the patient and the patient never complained of any pain whatsoever prior to arrival. PAST MEDICAL HISTORY: As mentioned: 1. Cerebral palsy and developmental delay. 2. Dyslipidemia. 3. Diabetes. 4. Neurogenic bladder. 5. Rosacea. 6. Vitamin D deficiency. 7. Right breast cancer, status post mastectomy. 8. Hiatal hernia. 9. Gastroesophageal reflux disease. 10. Depression. PAST SURGICAL HISTORY: As mentioned, status post right mastectomy in 2004. HOME MEDICATIONS: The patient is currently on: 1. Bacitracin ointment topical b.i.d. 2. Aspirin 81 mg oral daily. 3. Alendronate 70 mg oral weekly. 4. Tylenol 650 p.o. q.4 hours p.r.n. 5. Famotidine 20 mg oral daily. 6. Sodium docusate 200 mg oral every morning. 7. Vitamin D3 2000 units oral daily. 8. Bisacodyl 10 mg oral daily p.r.n. 9. Baclofen 10 mg oral t.i.d. 10. Metformin 500 mg oral daily with meals. 11. Namenda 10 mg p.o. b.i.d. 12. Milk of magnesia 30 mL every 72 hours p.r.n. constipation. 13. Advil 200 mg q.4 hours p.r.n. 14. Hydrocortisone topical b.i.d. p.r.n. 15. Allopurinol concentrate 1 mL oral daily. 16. Sertraline 150 mg every morning. 17. Psyllium 1 packet oral daily. 18. Pravastatin 5 mg oral daily. 19. Multivitamins 1 tablet oral daily. 20. Sodium phosphate adult enema per rectal daily p.r.n. for constipation. 21. MetroGel 1% topical b.i.d. 22. Robitussin 10 mL p.o. q.4 hours p.r.n. ALLERGIES: The patient is documented to have multiple allergies including ALINA INHIBITORS, which cause anaphylactic shock, CEPHALOSPORIN, PENICILLIN, and TRAZODONE, TRICYCLIC COMPOUNDS cause unknown reaction and TOMATO causes hives. SOCIAL HISTORY: No history of smoking, alcohol or drugs. Lives at the custodial at [facility] and the patient is full code as of now, at least based on the documentation from the custodial. Previously documented that Hernan Hastings, who is her nephew is her surrogate decision maker, although the staff also suggested that custodial itself could make certain decisions. REVIEW OF SYSTEMS: Unable to truly complete a proper review of systems due to the patient's mental status, but the review from the caregiver was otherwise negative. PHYSICAL EXAMINATION GENERAL: The patient is arousable, oriented only to person, not to time or place. VITAL SIGNS: In the ER, rectal temperature was documented at 103.2, heart rate was noted to be 112. BP 90/52. Saturating 93% on room air. HEAD AND NECK: Atraumatic, normocephalic. Ocular movements intact. Pupils bilaterally reactive. Neck supple. No jugular venous distention. LUNGS: Clear to auscultation bilaterally. No wheezes, rhonchi, or rales. HEART: S1 and S2. Regular rate and rhythm. ABDOMEN: Soft, nontender, and nondistended with positive bowel sounds. EXTREMITIES: No lower extremity edema. DIAGNOSTIC STUDIES/LAB DATA: CBC was within normal limits. Coagulation profile unremarkable. Comprehensive metabolic panel shows mildly decreased potassium at 3.3, but otherwise normal. Lactic acid was minimally decreased at 2.4, which improved to 1.8. Portable chest x-ray did not reveal any infiltrate. Official read by radiologist is still pending. Urinalysis revealed trace leukocyte esterase and positive nitrites. IMPRESSION: This is a 73-year-old female with developmental disability, cerebral palsy, here due to fever likely secondary to urinary tract infection. ASSESSMENT AND PLAN: 1. Fever and tachycardia. Meets criteria for systemic inflammatory response syndrome, likely sepsis secondary to urinary tract infection. The patient is started on Levaquin given her allergies. Review of her old urine culture shows growth of Enterococcus faecalis resistant to Levaquin. We change to vancomycin/ aztreonam to cover this and the dose would be per pharmacy protocol. We will follow up cultures and titrate antibiotics accordingly. 2. History of diabetes. We will hold metformin for now and follow up an A1c. 3. History of cerebral palsy and developmental delay. Restart her psychiatric medications. 4. History of hypertension, but no longer on any antihypertensives at this point. We will monitor her blood pressure. 5. History of dyslipidemia, on pravastatin. Continue the same dose. 6. History of osteoporosis. We will hold Fosamax for now. 7. DVT prophylaxis with Lovenox. [id number]/[facility] #: [id number] [facility]
[2019-04-03] MEDS ORDERED: NS 0.9% 1000 ML** 1,000 ML IV ONE (08:22)
[2019-04-03] MEDS ORDERED: NS 0.9% 1000 ML** 1,000 ML IV SCH ×2 (08:30)
[2019-04-03] MEDS: Docusate CAP* 100 MG PO SCH (08:53)
[2019-04-03] MEDS: Aspirin EC TAB* 81 MG TAB.EC PO SCH (08:53)
[2019-04-03] MEDS: Famotidine TAB* 20 MG PO SCH (08:53)
[2019-04-03] MEDS: Sertraline* 50 MG TAB PO SCH (08:53)
[2019-04-03] MEDS: Baclofen TAB* 10 MG PO SCH ×3 (08:53→20:44)
[2019-04-03] MEDS: Haloperidol LIQ* 10 MG/5 ML UDC PO SCH (08:54)
[2019-04-03] MEDS: Cholecalciferol TAB* 1000 UNITS PO SCH (08:54)
[2019-04-03] MEDS: Multivitamins/Minerals TAB PO SCH (08:54)
[2019-04-03] MEDS: Enoxaparin(*) 40 MG/0.4 ML SYR SUBCUT SCH (08:54)
[2019-04-03] MEDS: PRAVASTATIN 10 MG PO SCH (08:58)
[2019-04-03] MEDS: Aztreonam (*) 1 GM in NS 0.9% 50 ML* 50 ML IVPB SCH ×2 (10:42→17:01)
[2019-04-03] MEDS: Acetaminophen TAB* 325 MG PO PRN (12:40)
[2019-04-03 14:54] LABS: ABS Lymphocytes 1.2 10^3/ul (1.0-4.8); ABS Monocytes 0.5 10^3/ul (0-0.8); ABS Neutrophils 12.9 10^3/ul (1.5-7.7); Eosinophil % 0.2 %; Hematocrit 29 % (35-47); Hemoglobin 9.5 g/dL (12.0-16.0); Mean Corpuscular HGB Conc 33 g/dL (31-36); Mean Corpuscular Hemoglobin 26 pg (27-31); Mean Corpuscular Volume 79 fL (80-97); Mean Platelet Volume 8.1 fL (7.4-10.4); Platelet Count 141 10^3/uL (150-450); Red Cell Distribution Width 17 % (10-15); White Blood Count 14.7 10^3/uL (3.5-10.8)
[2019-04-03 15:10] LABS: BUN/Creatinine Ratio 21.3 (8-20); Calcium 7.7 mg/dL (8.6-10.3); EGFR African American 115.7 (>60); EGFR Non-African American 95.6 (>60); Potassium 3.6 mmol/L (3.5-5.0)
[2019-04-03] MEDS: Vancomycin(*) 1,000 MG in NS 0.9% 250 ML* 250 ML IVPB SCH (17:01)
--- NOTE | 2019-04-03 17:38 | PN ---
Hospitalist Progress Note Date of Service: 04/03/19 I saw and examined Robb today. Two staff members from [facility] were here visiting. They note that she is "wiped out" today, which is not usual for her. She has been sleeping more than usual but has not had any particular complaints. They say that it is her baseline to yell out when touched anywhere on her body. She responds to my presence and says hi, says nothing is bothering her, but when asked about specific symptoms, she says "I don't know." She cannot tell me anything about how she is feeling and does not follow most of my commands. They say this is different from her baseline. She keeps her eyes closed during most of my time with her, which they also say is unusual. She moves her head/neck spontaneously without difficulty. She has upper and lower extremity contractures and does have some pain when her extremities are moved. Her skin is in tact except for a right ingrown toenail. She was started on vancomycin and aztreonam by Dr. Salgado given her culture history and abx allergies. Will continue and await culture data. Will check a CT head since she cannot provide a clear history. Meningitis is also on the differential given her high fever and inability to provide history, but she has no meningeal signs and when I suggest a lumbar puncture as a consideration to her visitors, she yells out,"no." Will treat as a presumed UTI for now and continue to follow closely.
[2019-04-04] MEDS: Acetaminophen TAB* 325 MG PO PRN ×3 (01:08→19:53)
[2019-04-04] MEDS: Aztreonam (*) 1 GM in NS 0.9% 50 ML* 50 ML IVPB SCH ×3 (01:08→21:45)
[2019-04-04] MEDS: Vancomycin(*) 1,000 MG in NS 0.9% 250 ML* 250 ML IVPB SCH ×2 (05:23→18:39)
[2019-04-04 05:26] LABS: ABS Eosinophils 0.1 10^3/ul (0-0.6); ABS Lymphocytes 1.4 10^3/ul (1.0-4.8); ABS Monocytes 0.4 10^3/ul (0-0.8); Eosinophil % 1.1 %; Hematocrit 31 % (35-47); Hemoglobin 10.3 g/dL (12.0-16.0); Lymphocyte % 14.2 %; Mean Corpuscular HGB Conc 33 g/dL (31-36); Mean Corpuscular Hemoglobin 26 pg (27-31); Mean Corpuscular Volume 79 fL (80-97); Mean Platelet Volume 8.6 fL (7.4-10.4); Platelet Count 129 10^3/uL (150-450); Red Cell Distribution Width 17 % (10-15); White Blood Count 9.9 10^3/uL (3.5-10.8)
[2019-04-04 05:43] LABS: BUN/Creatinine Ratio 16.4 (8-20); Calcium 8.6 mg/dL (8.6-10.3); EGFR African American 130.4 (>60); EGFR Non-African American 107.8 (>60); Potassium 3.4 mmol/L (3.5-5.0)
[2019-04-04] MEDS: Aspirin EC TAB* 81 MG TAB.EC PO SCH (09:31)
[2019-04-04] MEDS: Multivitamins/Minerals TAB PO SCH (09:31)
[2019-04-04] MEDS: Famotidine TAB* 20 MG PO SCH (09:31)
[2019-04-04] MEDS: Baclofen TAB* 10 MG PO SCH ×3 (09:31→21:45)
[2019-04-04] MEDS: PRAVASTATIN 10 MG PO SCH (09:31)
[2019-04-04] MEDS: Docusate CAP* 100 MG PO SCH (09:31)
[2019-04-04] MEDS: Enoxaparin(*) 40 MG/0.4 ML SYR SUBCUT SCH (09:33)
[2019-04-04] MEDS: Haloperidol LIQ* 10 MG/5 ML UDC PO SCH (09:37)
[2019-04-04] MEDS: Cholecalciferol TAB* 1000 UNITS PO SCH (10:50)
[2019-04-04] MEDS: Sertraline* 50 MG TAB PO SCH (10:50)
--- NOTE | 2019-04-04 16:29 | PN ---
Subjective Date of Service: 04/04/19 Interval History: No overnight events. Robb is MUCH more interactive this morning. She greets me as soon as I enter the room, is pleasant and has no complaints. There is a recreational resort manager at the bedside who says she is herself today. Robb's nurse today reported that she is having trouble swallowing pills and she was concerned about aspiration. Objective Active Medications: Acetaminophen (Tylenol Tab*) 650 mg PO Q6H PRN PRN Reason: PAIN - MILD Last Admin: 04/04/19 10:56 Dose: 650 mg Aspirin (Aspirin Ec Tab*) 81 mg PO DAILY WITH MEAL [facility] Last Admin: 04/04/19 09:31 Dose: 81 mg Baclofen (Lioresal Tab*) 10 mg PO TID [facility] Last Admin: 04/04/19 14:19 Dose: 10 mg Bisacodyl (Dulcolax Supp*) 10 mg SD DAILY PRN PRN Reason: CONSTIPATION Cholecalciferol (Vitamin D Tab*) 2,000 units PO DAILY [facility] Last Admin: 04/04/19 10:50 Dose: 2,000 units Docusate Sodium (Colace Cap*) 200 mg PO QAM [facility] Last Admin: 04/04/19 09:31 Dose: 200 mg Enoxaparin Sodium (Lovenox(*)) 40 mg SUBCUT Q24H [facility] Last Admin: 04/04/19 09:33 Dose: 40 mg Famotidine (Pepcid Tab*) 20 mg PO DAILY [facility] Last Admin: 04/04/19 09:31 Dose: 20 mg Guaifenesin (Robitussin*) 10 ml PO Q4H PRN PRN Reason: COUGH Haloperidol (Haldol Liq*) 2 mg PO DAILY [facility] Last Admin: 04/04/19 09:37 Dose: 2 mg Hydrocortisone (Hytone Cream 1%*) 1 applic TOPICAL BID PRN PRN Reason: ITCHING Sodium Chloride (Ns 0.9% 1000 Ml) 1,000 mls @ 150 mls/hr IV PER RATE [facility] Last Admin: 04/03/19 10:43 Dose: 150 mls/hr Vancomycin HCl 1,000 mg/ (Sodium Chloride) 250 mls @ 166.667 mls/hr IVPB Q12H [facility] Last Admin: 04/04/19 05:23 Dose: 166.667 mls/hr Aztreonam 1 gm/ Sodium (Chloride) 50 mls @ 200 mls/hr IVPB 0500,1300,2100 [facility] Magnesium Hydroxide (Milk Of Magnesia Liq*) 30 ml PO Q72H PRN PRN Reason: CONSTIPATION Multivitamins/Minerals (Theragran/Minerals Tab*) 1 tab PO DAILY [facility] Last Admin: 04/04/19 09:31 Dose: 1 tab Pharmacy Consult (Vancomycin Per Pharmacy*) 1 note FOLLOW UP . PRN PRN Reason: PER PROTOCOL Pharmacy Profile Note (Vancomycin Trough Check) 1 note FOLLOW UP ONCE ONE Stop: 04/05/19 05:31 Pravastatin Sodium (Pravachol (Nf)) 5 mg PO DAILY [facility] Last Admin: 04/04/19 09:31 Dose: 5 mg Sertraline HCl (Zoloft*) 150 mg PO QAM [facility] Last Admin: 04/04/19 10:50 Dose: 150 mg Vital Signs - 8 hr 04/04/19 04/04/19 11:00 15:00 Temperature 98.6 F 97.6 F Pulse Rate 96 83 Respiratory 22 18 Rate Blood Pressure 140/71 109/54 (mmHg) O2 Sat by Pulse 97 98 Oximetry Oxygen Devices in Use Now: None Appearance: alert, greets me, pleasant Eyes: No Scleral Icterus Ears/Nose/Mouth/Throat: NL Teeth, Lips, Gums Neck: NL Appearance and Movements; NL JVP Respiratory: Symmetrical Chest Expansion and Respiratory Effort Cardiovascular: NL Sounds; No Murmurs; No JVD, RRR Abdominal: NL Sounds; No Tenderness; No Distention Lymphatic: No Cervical Adenopathy Extremities: No Edema, - - contractures b/l upper and lower extremities Skin: No Rash or Ulcers Neurological: Alert and Oriented x 3 Result Diagrams: 04/04/19 04:19 04/04/19 04:19 Microbiology and Other Data: Microbiology 04/02/19 21:21 Urine Culture - Preliminary Urine Escherichia Coli 04/02/19 21:26 Aerobic Blood Culture - Preliminary Blood Venous No Growth Day 1 Anaerobic Blood Culture - Preliminary No Growth Day 1 04/02/19 21:26 Aerobic Blood Culture - Preliminary Blood Venous No Growth Day 1 Anaerobic Blood Culture - Preliminary No Growth Day 1 04/03/19 13:30 Nasal Screen MRSA (PCR) - Final Nasal Mrsa Not Detected Assess/Plan/Problems-Billing Assessment: This is a 73 year old woman with a developmental delay who resides at a half-way and presented with altered mental status and was found to have a UTI - Patient Problems (1) Dysphagia Current Visit: No Status: Acute Code(s): R13.10 - DYSPHAGIA, UNSPECIFIED SNOMED Code(s): 25333175 Comment: consult speech therapy today for discharge recommendations recreational resort manager suggested to RN that she thinks this has been progressive (2) UTI (urinary tract infection) Current Visit: No Status: Acute Comment: culture growing e. coli; sensitivities pending will de-escalate prior to discharge (allergic to pcn and cephalosporins) (3) Depression Current Visit: No Status: Chronic Code(s): F32.9 - MAJOR DEPRESSIVE DISORDER , SINGLE EPISODE, UNSPECIFIED SNOMED Code(s): 77979853 Comment: Continue sertraline. (4) Diabetes Current Visit: No Status: Chronic Code(s): E11.9 - TYPE 2 DIABETES MELLITUS WITHOUT COMPLICATIONS SNOMED Code(s): 67652655 Comment: Continue Lispro SS.
[2019-04-05] MEDS: Aztreonam (*) 1 GM in NS 0.9% 50 ML* 50 ML IVPB SCH (04:38)
[2019-04-05] MEDS ORDERED: Vancomycin Trough Check NOTE FOLLOW UP ONE (05:30)
[2019-04-05] MEDS: Vancomycin(*) 1,000 MG in NS 0.9% 250 ML* 250 ML IVPB SCH (07:41)
[2019-04-05 07:45] VITALS: BP 120/52
[2019-04-05] MEDS: Cholecalciferol TAB* 1000 UNITS PO SCH (09:39)
[2019-04-05] MEDS: Baclofen TAB* 10 MG PO SCH (09:39)
[2019-04-05] MEDS: Docusate CAP* 100 MG PO SCH (09:39)
[2019-04-05] MEDS: Acetaminophen TAB* 325 MG PO PRN (09:39)
[2019-04-05] MEDS: Enoxaparin(*) 40 MG/0.4 ML SYR SUBCUT SCH (09:40)
[2019-04-05] MEDS: Famotidine TAB* 20 MG PO SCH (09:40)
[2019-04-05] MEDS: Multivitamins/Minerals TAB PO SCH (09:40)
[2019-04-05] MEDS: Haloperidol LIQ* 10 MG/5 ML UDC PO SCH (09:40)
[2019-04-05] MEDS: Aspirin EC TAB* 81 MG TAB.EC PO SCH (09:40)
[2019-04-05] MEDS: PRAVASTATIN 10 MG PO SCH (09:44)
--- NOTE | 2019-04-05 10:04 | DS ---
CC: Dr. Felton * DISCHARGE SUMMARY: DATE OF ADMISSION: 04/03/19 DATE OF DISCHARGE: 04/05/19 PRINCIPAL DISCHARGE DIAGNOSES: 1. Sepsis. 2. Urinary tract infection. SECONDARY DIAGNOSES: 1. Diabetes. 2. Cerebral palsy and developmental delay. 3. Hypertension. 4. Hyperlipidemia. 5. Osteoporosis. PHYSICAL EXAMINATION: At the time of discharge, temperature 97.4, heart rate 78 , respiratory rate 22, pulse ox 96% on room air, and blood pressure 120/52. General: Alert, well-appearing, elderly female in no distress. She greets me as I enter the room, smiles, and says good morning. She is pleasantly interactive and is able to answer yes and no questions. HEENT: Pupils are 2 mm bilaterally and reactive to light. Oral mucosa is moist. Neck: No JVP or adenopathy. Chest: She is in a regular rate and rhythm with no murmurs. Her lungs are clear bilaterally. Abdomen: Soft, nontender, and nondistended. Extremities: No edema, rashes, or ulcers. She does have contractures in all extremities. HOSPITAL COURSE BY PROBLEM: 1. Sepsis with a urinary source. She was admitted to the hospital on 04/03/19 with altered mental status and fever. She was found to have a positive urinalysis and was started empirically on aztreonam and vancomycin given the history of resistant enterococcus. She was volume resuscitated and remains hemodynamically stable. The following day, she was much more alert and interactive and the staff from [facility] said she was at her baseline from a mental status standpoint. Her urine culture returned as E. coli. She does have allergies to PENICILLINS and CEPHALOSPORINS so this limited our antibiotic choice. I opted to avoid ciprofloxacin though the E. coli was sensitive to it and opted instead for nitrofurantoin. While this is not ideal in the setting of recent sepsis from a UTI and a complicated UTI, I think the benefit of avoiding fluoroquinolones in this elderly female with developmental delay outweighs the risk. She received a dose of aztreonam on 04/05/19 before she was discharged so she can start the Macrobid this evening. I am treating her for a total of 7 days. She should follow up with her PCP in 1 week. 2. Concern for aspiration. Her nurse had some concern that she was struggling to swallow her pills, so Speech Therapy evaluated her on 04/04/19. He did not have any concern about aspiration and said she can continue foods with a pureed texture with nectar liquids and straw is okay. 3. Diabetes. Her metformin was held during this admission and is resumed at the time of discharge. 4. Osteoporosis. Her bisphosphonate was held during admission and it can be resumed at the time of discharge. MEDICATIONS AT DISCHARGE: 1. Baclofen 10 mg t.i.d. 2. Metformin 500 mg daily. 3. Memantine 10 mg b.i.d. 4. Tylenol 650 q.4 p.r.n. pain. 5. Robitussin 10 mL q.4 p.r.n. cough. 6. Ibuprofen 200 mg q.4 p.r.n. pain. 7. Bacitracin topical b.i.d. p.r.n. skin breakdown. 8. Milk of magnesia 30 mL q.72 hours p.r.n. constipation. 9. Bisacodyl suppository 10 mg p.r. daily p.r.n. constipation. 10. Fosamax 70 mg p.o. weekly. 11. Pepcid 20 mg daily. 12. Vitamin D3 at 2000 units daily. 13. Multivitamin 1 tab daily. 14. Metrogel 1% topical b.i.d. 15. Aspirin 81 mg daily. 16. Psyllium 1 packet daily. 17. Zoloft 150 mg daily. 18. Pravastatin 5 mg daily. 19. Fleet Enema 1 bottle p.r. daily p.r.n. constipation. 20. Colace 200 mg daily. 21. Haldol 1 mL daily. 22. Nitrofurantoin 100 mg b.i.d. for 5 more days including today. A total of 9 caps were dispensed. DISPOSITION AT THE TIME OF DISCHARGE: She is stable for discharge back to [facility]. CONDITION AT THE TIME OF DISCHARGE: Stable. [id number]/[facility] #: [id number] [facility]
[2019-04-05] MEDS: Sertraline* 50 MG TAB PO SCH (10:28)
== END 2019-04-05 11:40 | disposition home or self-care (01) | DRG 872 ==
LOC: ED 20:36 → MED 04-03 03:52
PROVIDERS: ADMIT Internal Medicine; ATTEND Internal Medicine
DX: A41.9 Sepsis, unspecified organism (principal); N39.0 Urinary tract infection, site not specified; E11.9 Type 2 diabetes mellitus without complications; G80.9 Cerebral palsy, unspecified; R62.50 Unspecified lack of expected normal physiological development in childhood; I10 Essential (primary) hypertension; E78.5 Hyperlipidemia, unspecified; M81.0 Age-related osteoporosis without current pathological fracture; B96.20 Unspecified Escherichia coli [E. coli] as the cause of diseases classified elsewhere; N31.9 Neuromuscular dysfunction of bladder, unspecified; K21.9 Gastro-esophageal reflux disease without esophagitis; F32.9 Major depressive disorder, single episode, unspecified; E78.00 Pure hypercholesterolemia, unspecified; R13.10 Dysphagia, unspecified; K44.9 Diaphragmatic hernia without obstruction or gangrene; E55.9 Vitamin D deficiency, unspecified; L71.9 Rosacea, unspecified; Z88.8 Allergy status to other drugs, medicaments and biological substances; Z91.018 Allergy to other foods; Z88.0 Allergy status to penicillin; Z88.1 Allergy status to other antibiotic agents; Z79.82 Long term (current) use of aspirin; Z79.84 Long term (current) use of oral hypoglycemic drugs; Z90.11 Acquired absence of right breast and nipple; Z85.3 Personal history of malignant neoplasm of breast; Z92.21 Personal history of antineoplastic chemotherapy; Z92.3 Personal history of irradiation
CPT/HCPCS: 36415; 70450; 71045; 80048; 80053; 80202; 81003; 81015; 83036; 83605; 84484; 85025; 85610; 85730; 86140; 87040; 87077; 87086; 87186; 87641; 99284; A9270-GY; J1650; J1956; J3370

== ENCOUNTER 2019-04-12 15:44 | Emergency (ER) | payer MEDICARE, MEDICAID ==
[2019-04-12] MEDS ORDERED: Ondansetron INJ* 2 MG/ML VIAL IV ONE (16:09)
[2019-04-12 16:32] LABS: ABS Eosinophils 0.1 10^3/ul (0-0.6); ABS Monocytes 0.2 10^3/ul (0-0.8); ABS Neutrophils 5.9 10^3/ul (1.5-7.7); Eosinophil % 0.8 %; Hematocrit 37 % (35-47); Hemoglobin 12.4 g/dL (12.0-16.0); Lymphocyte % 13.6 %; Mean Corpuscular HGB Conc 33 g/dL (31-36); Mean Corpuscular Hemoglobin 26 pg (27-31); Mean Corpuscular Volume 79 fL (80-97); Mean Platelet Volume 7.8 fL (7.4-10.4); Platelet Count 249 10^3/uL (150-450); Red Blood Count 4.74 10^6 /uL (3.70-4.87); Red Cell Distribution Width 17 % (10-15); White Blood Count 7.1 10^3/uL (3.5-10.8)
--- NOTE | 2019-04-12 16:33 | ED ---
GI/ HPI - HPI Summary HPI Summary: A 73 y/o female w hx cerebral palsy, cognitive impairment brought in by ambulance presents to [facility] with a chief complaint of N/V. Patient was at physical therapy, started coughing then vomited x2 in ambulance. She denies any abdominal pain but has LLQ abdominal pain with palpation. She also told EMS she had some pain when she was breathing. Per aide, the patient has a Hx of dementia , CP, breast cancer for which she had a right mastectomy. She was recently in the ED for a UTI. Her aid denies recent fevers, vomiting prior to this episode , diarrhea. She is at her neurologic baseline per aid which is alert and minimally conversive, saying yes no. The patient is a level 5 caveat as she is a poor historian. - History of Current Complaint Chief Complaint: EDNauseaVomitDiarrh Time Seen by Provider: 04/12/19 16:08 Stated Complaint: GENERAL ILLNESS PER EMS Hx Obtained From: Patient Onset/Duration: Started Hours Ago, Still Present Timing: Constant Severity: Mild Current Severity: Mild Pain Intensity: 0 Location of Pain: LLQ Pain Characteristics: Unable to describe Associated Signs and Symptoms: Positive: Nausea, Vomiting, Cough. Negative: Fever Aggravating Factor(s): Palpation Alleviating Factor(s): Nothing - Additional Pertinent History Primary Care Physician: SALVADOR - Allergy/Home Medications Allergies/Adverse Reactions: Allergies Allergy/AdvReac Type Severity Reaction Status Date / Time ALINA Inhibitors Allergy Anaphylatic Verified 03/18/19 08:52 Shock Cephalosporins Allergy Unknown Verified 03/18/19 08:52 Reaction Details Penicillins Allergy Unknown Verified 03/18/19 08:52 Reaction Details tomato Allergy Hives Verified 03/18/19 08:52 trazodone Allergy Unknown Verified 03/18/19 08:52 Reaction Details Tricyclic Compounds Allergy Unknown Verified 03/18/19 08:52 Reaction Details Home Medications: Home Medications Aloe Vera/Collagen [Aloe Todd Multi Purpose] 1 applic TOPICAL TID 04/12/19 [ History Confirmed 04/12/19] Carbamide Peroxide 6.5% OTIC* [DEBROX 6.5% Otic*] 4 drop BOTH EARS WE 04/12/19 [ History Confirmed 04/12/19] Ketoconazole 1 applic TOPICAL .TWICE WEEKLY 04/12/19 [History Confirmed 04/12/19 ] Lactic Acid CR 12% (NF) [Lac-Hydrin 12% (NF)] 12 % TOPICAL TID PRN 04/12/19 [ History Confirmed 04/12/19] Magnesium Hydroxide LIQ* [Milk of Magnesia LIQ*] 30 ml PO Q3D PRN 04/12/19 [ History Confirmed 04/12/19] Nut.tx.gluc.intoler,Lac-Fr,Soy [Glucerna] 237 ml PO DAILY 04/12/19 [History Confirmed 04/12/19] Polyethylene Glycol 3350* [Miralax*] 17 gm PO DAILY 04/12/19 [History Confirmed 04/12/19] metroNIDAZOLE [Metrogel] 1 % TOPICAL BID 04/12/19 [History Confirmed 04/12/19] PMH/Surg Hx/FS Hx/Imm Hx Endocrine/Hematology History: Reports: Hx Diabetes - controlled w/ metformin 500mg 1 x day and lifestyle Denies: Hx Systemic Lupus Erythematosus Cardiovascular History: Reports: Hx Hypercholesterolemia - ?takes statin, Hx Hypertension - med d/c'd Denies: Hx Congestive Heart Failure History: Denies: Hx Dialysis, Hx Renal Disease Musculoskeletal History: Denies: Hx Rheumatoid Arthritis Sensory History: Reports: Hx Contacts or Glasses Denies: Hx Hearing Aid Opthamlomology History: Reports: Hx Contacts or Glasses Neurological History: Reports: Hx Developmental Delay, Other Neuro Impairments/ Disorders - cerebral palsy - takes baclofen Psychiatric History: Reports: Hx Depression - zoloft - Cancer History Cancer Type, Location and Year: breast 2004 Hx Chemotherapy: Yes - chemo 2004 per speaker mounter Hx Radiation Therapy: Yes - 2004 - Surgical History Surgery Procedure, Year, and Place: Right mastectomy 2004 Infectious Disease History: No Infectious Disease History: Denies: Traveled Outside the [place] in Last 30 Days - Family History Known Family History: Negative: Cardiac Disease, Hypertension - Social History Alcohol Use: None Hx Substance Use: No Substance Use Type: Reports: None Hx Tobacco Use: No Smoking Status (MU): Never Smoked Tobacco Review of Systems - ROS Summary Review of Systems Summary: Pt is a level 5 caveat as she is a poor historian Negative: Fever Positive: Cough Positive: Vomiting, Nausea All Other Systems Reviewed And Are Negative: No Physical Exam - Summary Physical Exam Summary: Level 5 caveat Constitutional: Elderly female. Alert. (-) Distressed Skin: Warm, Dry HENT: Normocephalic; Atraumatic Eyes: Conjunctiva normal Neck: Musculoskeletal ROM normal neck. (-) JVD, (-) Stridor, (-) Nuchal rigidity Cardio: Rhythm regular, rate normal, Heart sounds normal; Intact distal pulses; Radial pulses are 2+ and symmetric. (-) Murmur Pulmonary/Chest wall: Effort normal. (-) Respiratory distress, (-) Wheezes, (-) Rales Abd: Soft, LLQ tednerness, (-) Distension, (-) Guarding, (-) Rebound Musculoskeletal: (-) Edema Lymph: (-) Cervical adenopathy Neuro: Alert, intermittently conversive at baseline w caregiver Psych: deferred Triage Information Reviewed: Yes Vital Signs On Initial Exam: Initial Vitals Temp Pulse Resp BP Pulse Ox 97.9 F 90 20 132/80 98 04/12/19 15:53 04/12/19 15:53 04/12/19 15:53 04/12/19 15:53 04/12/19 15:53 Vital Signs Reviewed: Yes - [place] Coma Scale Best Eye Response: 4 - Spontaneous Best Motor Response: 6 - Obeys Commands Best Verbal Response: 4 - Confused Coma Scale Total: 14 Diagnostics - Vital Signs Vital Signs Temp Pulse Resp BP Pulse Ox 04/12/19 15:53 97.9 F 90 20 132/80 98 - Laboratory Result Diagrams: 04/12/19 16:17 04/12/19 16:17 Lab Statement: Any lab studies that have been ordered have been reviewed, and results considered in the medical decision making process. - Radiology CXR Radiology Interpretation Completed By: Radiologist Summary of Radiographic Findings: No evidence for acute intrathoracic disease. ED physician has reviewed this imaging report. - CT abdomen/pelvis CT Interpretation Completed By: Radiologist Summary of CT Findings: 1. There is airspace opacity in the left lower lobe base suspicious for. pneumonitis. 2. Stable small hiatal hernia. ED physician has reviewed this imaging report. - EKG 16:49 Cardiac Rate: NL - 82 bpm EKG Rhythm: Sinus Rhythm Summary of EKG Findings: An EKG at 16:49 reveals normal sinus rhythm 82 bpm, nml axis, nml intervals. No STEMI. No acute changes Re-Evaluation - Re-Evaluation First Eval Change: Unchanged - Patient resting no acute distress. Troponin negative, no white count, chest x-ray clear. CT abd/pelvis with left lower lobe pneumonitis likely 2/2 vomiting. Patient does not have systemic signs of infection, EWOB on RA, therefore discussed with the aid they can observe her if theyre comfortable w that. Aid agreed and states they willl bring her back for worsening symptoms including fevers, trouble breathing or change in mental status. Plan for discharge home with a diagnosis of pneumonitis GIGU Course/Dx - Course Course Of Treatment: 73-year-old female with a history of cerebral palsy presents with vomiting and cough. PE w elderly female, NAD, at logic baseline per staff. Lungs clear, abdomen with mild left lower quadrant tenderness. We' ll check a chest x-ray to rule out pneumonia given reported cough, as well as troponin and EKG. We'll also check CT at and pelvis with IV contrast for left lower quadrant tenderness to rule out infectious process such as diverticulitis , bowel obstruction, or mass. Check UA for UTI. No reports of vaginal bleeding or abnormal discharge per caregiver therefore low suspicion for pelvic pathology. Patient is afebrile and well-appearing therefore do not suspect systemic infection. - Diagnoses Provider Diagnoses: Aspiration pneumonitis Discharge - Sign-Out/Discharge Documenting (check all that apply): Patient Departure - DC Patient Received Moderate/Deep Sedation with Procedure: No - Discharge Plan Condition: Stable Disposition: HOME Patient Education Materials: Pneumonitis (ED) Referrals: Amada Felton MD [Primary Care Provider] - Additional Instructions: You were seen in the emergency department for vomiting. Your CT scan showed aspiration pneumonitis in your left lung. This does not require treatment however if she develops fevers, trouble breathing, or you're concerned please return to the emergency department. If any studies were not completed at the time of discharge you will be called with the relevant results. Please follow up with your primary care doctor in next 2-3 days and return to emergency department for worsening or concerning symptoms. - Billing Disposition and Condition Condition: STABLE Disposition: Home - Attestation Statements Document Initiated by Scribe: Yes Documenting Scribe: David García Provider For Whom Yessenia is Documenting (Include Credential): Wayne Small MD Scribe Attestation: I, David García, scribed for Wayne Small MD on 04/13/19 at 1012. Scribe Documentation Reviewed: Yes Provider Attestation: The documentation as recorded by the scribe, David García accurately reflects the service I personally performed and the decisions made by me, Wayne Small MD Status of Scribe Document: Viewed
[2019-04-12 16:44] LABS: Albumin 4.3 g/dL (3.2-5.2); Albumin/Globulin Ratio 1.3 (1-3); BUN/Creatinine Ratio 28.6 (8-20); Calcium 9.7 mg/dL (8.6-10.3); EGFR African American 127.7 (>60); EGFR Non-African American 105.5 (>60); Globulin 3.2 g/dL (2-4); Potassium 4.1 mmol/L (3.5-5.0); Total Bilirubin 0.2 mg/dL (0.2-1.0); Total Protein 7.5 g/dL (6.4-8.9)
[2019-04-12] MEDS ORDERED: Iodixanol* (CONTRAST) 320 MG/ML 100 ML SDV IV ONE (17:53)
[2019-04-12 18:22] VITALS: BP 125/93
[2019-04-12 18:53] LABS: Urine Appearance Cloudy; Urine Bilirubin Negative (Negative); Urine Blood Negative (Negative); Urine Color Yellow; Urine Glucose Negative (Negative); Urine Ketones Negative (Negative); Urine Nitrite Negative (Negative); Urine Protein Negative (Negative); Urine Specific Gravity 1.024 (1.010-1.030); Urine Urobilinogen Negative (Negative)
== END 2019-04-12 19:23 | disposition home or self-care (01) ==
LOC: ED 15:44
DX: J69.0 Pneumonitis due to inhalation of food and vomit (principal); K44.9 Diaphragmatic hernia without obstruction or gangrene; E11.9 Type 2 diabetes mellitus without complications; E78.00 Pure hypercholesterolemia, unspecified; I10 Essential (primary) hypertension; F32.9 Major depressive disorder, single episode, unspecified; R62.50 Unspecified lack of expected normal physiological development in childhood; Z79.84 Long term (current) use of oral hypoglycemic drugs; Z79.899 Other long term (current) drug therapy; Z88.1 Allergy status to other antibiotic agents; Z88.0 Allergy status to penicillin; Z88.8 Allergy status to other drugs, medicaments and biological substances
CPT/HCPCS: 36415; 71045; 74177; 80053; 81003; 83690; 84484; 85025; 93005; 96374; 99284; J2405; Q9967

== ENCOUNTER 2019-04-30 15:02 | Emergency (ER) | payer MEDICARE, MEDICAID ==
[2019-04-30 15:49] VITALS: BP 135/87
--- NOTE | 2019-04-30 16:19 | UC ---
HPI Febrile Illness - HPI Summary HPI Summary: Patient from a fpc, caregiver states she had a noted temp of 99.6 this morning. has not been urinating much, oral intake of fluid and food down. patient complaining of lower abdominal pain. patient is incontinent at baseline - History of Current Complaint Chief Complaint: UCGeneralIllness Time Seen by Provider: 04/30/19 15:33 Hx Obtained From: Patient Hx Last Menstrual Period: post Timing: Constant, Lasting Days - 1 Initial Severity: Mild Current Severity: Moderate Pain Intensity: 5 Associated Signs and Symptoms: Fluid Intake, Nausea - Additional Pertinent History Primary Care Physician: [id number] - Allergy/Home Medications Allergies/Adverse Reactions: Allergies Allergy/AdvReac Type Severity Reaction Status Date / Time ALINA Inhibitors Allergy Anaphylatic Verified 04/30/19 15:54 Shock Cephalosporins Allergy Unknown Verified 04/30/19 15:54 Reaction Details Penicillins Allergy Unknown Verified 04/30/19 15:54 Reaction Details tomato Allergy Hives Verified 04/30/19 15:54 trazodone Allergy Unknown Verified 04/30/19 15:54 Reaction Details Tricyclic Compounds Allergy Unknown Verified 04/30/19 15:54 Reaction Details angiotensen receptor blockers Allergy Severe unk Uncoded 04/30/19 15:54 Home Medications: Home Medications Psyllium Husk [Reguloid] 1 cap PO DAILY 04/30/19 [History Confirmed 04/30/19] PMH/Surg Hx/FS Hx/Imm Hx Previously Healthy: Yes - Surgical History Surgical History: Yes Surgery Procedure, Year, and Place: Right mastectomy 2004 - Family History Known Family History: Negative: Cardiac Disease, Hypertension - Social History Alcohol Use: None Substance Use Type: None Smoking Status (MU): Never Smoked Tobacco - Immunization History Most Recent Influenza Vaccination: UTD Most Recent Pneumonia Vaccination: UTD Review of Systems All Other Systems Reviewed And Are Negative: Yes Constitutional: Positive: Fever, Fatigue Gastrointestinal: Positive: Abdominal Pain Genitourinary: Positive: Other - decreased urination Motor: Positive: Negative Neurovascular: Positive: Negative Musculoskeletal: Positive: Negative Neurological: Positive: Negative Psychological: Positive: Negative Is Patient Immunocompromised?: No Physical Exam Triage Information Reviewed: Yes Appearance: Well-Appearing, Well-Nourished, Ill-Appearing Vital Signs: Initial Vital Signs Temp 98.4 F 04/30/19 15:45 Pulse 68 04/30/19 15:45 Resp 17 04/30/19 15:45 BP 135/87 04/30/19 15:45 Pulse Ox 98 04/30/19 15:45 Vital Signs Reviewed: Yes Eye Exam: Normal ENT Exam: Normal Dental Exam: Normal Neck exam: Normal Respiratory Exam: Normal Cardiovascular Exam: Normal Abdomen Description: Positive: No Organomegaly, Soft, CVA Tenderness (R) - neg, CVA Tenderness (L) - neg, Other: - lower abdominal tenderness on palpation, Bowel Sounds: Positive: Present Musculoskeletal Exam: Normal Neurological Exam: Normal Psychological Exam: Normal Skin Exam: Normal Course/Dx - Course Course Of Treatment: hx obtained, exam performed, meds reviewed, UA attempted by straight catheter but not successful. caregiver decided to go home and wait to see if symtpoms progress - Febrile Illness Differential Diagnoses: Abd. Infection, Bacteremia, Fever of Unknown Origin, Pneumonia, Sepsis, Other: - UTI - Diagnoses Provider Diagnosis: Urinary incontinence, Fever Discharge ED - Sign-Out/Discharge Documenting (check all that apply): Patient Departure All imaging exams completed and their final reports reviewed: No Studies - Discharge Plan Condition: Stable Disposition: HOME Patient Education Materials: Fever in Adults (ED) Referrals: Amada Felton MD [Primary Care Provider] - Additional Instructions: 1. I recommend, offering fluids frequently to stay hydrated 2. MOnitor her tempurature every 8 hours and treated with tylenol or ibuprofen as needed. If her temperature continuew to elevate, or if the complaints of lack of appetite, decreased urination persist, foul smelling urine, or vomiting occurs, please follow up with her primary care or report to ER for further evaluation. - Billing Disposition and Condition Condition: STABLE Disposition: Home
== END 2019-04-30 16:55 | disposition home or self-care (01) ==
LOC: UCEAST 15:02
DX: R32 Unspecified urinary incontinence (principal); R50.9 Fever, unspecified; Z88.0 Allergy status to penicillin; Z88.1 Allergy status to other antibiotic agents
CPT/HCPCS: 99212; G0463

== ENCOUNTER 2019-08-22 11:11 | Emergency (ER) | payer MEDICARE, MEDICAID ==
--- OUTSIDE RECORDS SUMMARY | 2019-08-22 11:17 | XMS REPORT | Summary of Care ---
:1945 Author Organization [facility] Address [address] [facility] [place] [address] Care Team Providers Name Role Phone Amada Felton MD Primary Care Provider Reason for Visit Reason Comments Follow Up Routine follow up Encounter Details Date Type Department Care Team Description 08/11/2019 Office Visit [facility], Type 2 diabetes mellitus without complication, without long-term current use of insulin ([facility]) (Primary Dx ); Practice Amada Salinas MD Spastic quadriplegic cerebral palsy ([facility]); [address] [facility] Intellectual disability; [place], [place] [id number] [place] [address] Dementia with behavioral disturbance, unspecified dementia type ([facility]); [phone] Neurogenic bladder; Vitamin D deficiency; Rosacea; H/O right mastectomy Allergies Active Allergy Reactions Severity Noted Date Comments Olayinka Inhibitors Unknown Reaction 01/26/2019 Cephalosporins Unknown Reaction 01/26/2019 Losartan Unknown Reaction 01/26/2019 ARB allergy listed in past records Penicillins Unknown Reaction 01/26/2019 Tricyclic Antidepressants Unknown Reaction 01/26/2019 documented as of this encounter (statuses as of 08/11/2019) Medications Medication Sig Dispensed Refills Start Date End Date Status memantine (NAMENDA) 10 Take 10 mg by 0 Active MG Oral Tab mouth TWICE DAILY. sertraline (ZOLOFT) 100 Take 100 mg by 0 Active MG Oral Tab mouth DAILY. 1.5 tab daily haloperidol (HALDOL) 2 Take 2 mg by 0 Active MG/ML Oral Conc mouth EVERY EVENING. Dimethicone (ALOE VESTA by Apply 0 Active 2-N-1 SKIN COND EX) externally route. Mouthwashes (ANTISEPTIC by Mouth/Throat 0 Active MOUTH RINSE MT) route. metroNIDAZOLE by Apply 0 Active (METROGEL) 1 % Apply externally route. externally Gel POLYETH GLYC-PROPYLENE Tennyson in nose. 0 Active GLYC NA IBUPROFEN 200 PO Take 200 mg by 0 Active mouth EVERY FOUR HOURS NEEDED. magnesium hydroxide Take 30 mL by 0 Active (MILK OF MAGNESIA PO mouth NEEDED. SUSP 400 MG/5 ML 180 Give 30cc by ML, ODD DOSES, ) 400 mouth every 3 MG/5ML Oral Suspension days if no BM bisacodyl (BISCOLAX) 10 Place 10 mg per 0 Active MG Rectal Suppos rectum NEEDED. 1 suupos into rectum on day 4 of no BM Psyllium (REGULOID PO) Take by mouth. 0 Active ketoconazole (NIZORAL) 1 Appl by Topical 0 Active 2 % Apply externally route 2 times per Shampoo week at bedtime. carbamide peroxide Place 4 Drops 0 Active (DEBROX) 6.5 % Otic into both ears. Solution As directed Skin Protectants, Misc. by Apply 0 Active (PETROLEUM JELLY EX) externally route. ammonium lactate 1 Appl by Topical 0 Active (AMLACTIN, LAC-HYDRIN) route TWICE 12 % Apply externally DAILY. Cream Sodium Phosphates Place per 0 Active (ENEMA) 7-19 GM/118ML rectum. Rectal Enema hydrocortisone (HYTONE) by Topical route 0 Active 1 % Apply externally THREE TIMES Cream DAILY. baclofen (LIORESAL) 10 TAKE ONE TABLET 90 Tab 4 02/20/2019 Active MG Oral Tab BY MOUTH 3 TIMES A DAY (MUSCLE SPASMS) Nefazodone 50 MG Oral Take 25 mg by 0 Active Tab mouth TWICE DAILY. Multiple Vitamin Oral Take 1 Tab by 30 Tab 5 03/24/2019 Active TabIndications: mouth DAILY. Cerebral palsy, unspecified type (HCC) aspirin 81 MG Oral Chew Take 1 Tab by 30 Tab 5 04/05/2019 Active TabIndications: Type 2 mouth DAILY. diabetes mellitus without complication, without long-term current use of insulin ([facility]) metFORMIN (GLUCOPHAGE) Take 1 Tab by 30 Tab 5 04/06/2019 Active 500 MG Oral Tab mouth DAILY. Cholecalciferol TAKE ONE TABLET 30 Tab 9 04/18/2019 Active (VITAMIN D) 2000 units BY MOUTH EVERY Oral Tab DAY AFTER DINNER WITH MEAT FAT OR OIL (DIET SUPPLEMENT) pravastatin (PRAVACHOL) Take 10 mg by 30 Tab 5 05/11/2019 Active 10 MG Oral Tab mouth DAILY. famotidine (PEPCID) 20 TAKE ONE TABLET 30 Tab 4 05/11/2019 Active MG Oral Tab BY MOUTH EVERY DAY 30 MINUTES BEFORE MEAL (HEARTBURN) clotrimazole (LOTRIMIN) Apply to rash 24 g 0 05/12/2019 Active 1 % Apply externally right neck bid x CreamIndications: 14 days. You can Ringworm of body also use this as needed for groin or under breast fungal rashes. Simethicone Extra Take 125 mg by 90 Cap 5 05/12/2019 Active Strength 125 MG Oral mouth THREE TIMES CapIndications: DAILY NEEDED Excessive gas (gas/bloating). acetaminophen (TYLENOL) Take 2 Tabs by 120 Tab 5 05/12/2019 Active 325 MG Oral mouth EVERY FOUR TabIndications: HOURS NEEDED Osteoarthritis, (pain). Cancel 2 unspecified day limit. She osteoarthritis type, may use daily if unspecified site needed, max 3 grams daily Blood Glucose 1 Strip by Does 50 Device 11 07/04/2019 Active Monitoring Suppl (TRUE not apply route METRIX AIR GLUCOSE DAILY. E11.9 METER) Does not apply DeviceIndications: Type 2 diabetes mellitus without complication, without long-term current use of insulin (HCC) TRUEPLUS LANCETS 28G 1 Units by Does 100 Each 1 07/04/2019 Active Does not apply not apply route MiscIndications: Type 2 NEEDED ( diabetes mellitus NEEDED). without complication, without long-term current use of insulin (HCC) polyethylene glycol Take 17 g by 1 Bottle 5 07/21/2019 Active (MIRALAX) Oral mouth DAILY PowderIndications: NEEDED Constipation, (constipation of unspecified 3 days or more). constipation type Mix with 8 oz water or juice Nutritional Supplements Take 1 Bottle by 30 Bottle 5 07/26/2019 Active (GLUCERNA ADVANCE mouth NEEDED SHAKE) Oral (nutrition LiquidIndications: management.). Intellectual disability documented as of this encounter (statuses as of 08/11/2019) Active Problems Problem Noted Date Neurogenic bladder 08/11/2019 Vitamin D deficiency 08/11/2019 H/O right mastectomy 08/11/2019 Hospital discharge follow-up 04/17/2019 History of right breast cancer 08/30/2004 Overview: right mastectomy Diabetes mellitus Hiatal hernia Stasis edema of both lower extremities Rosacea Recurrent UTI Osteopenia Overview: started fosamax 2017 Osteoarthritis Overview: hand Intellectual disability Hyperlipidemia Dementia Cerebral palsy Depression Cataract documented as of this encounter (statuses as of 08/11/2019) Immunizations Name Administration Dates Next Due Influenza Vaccine 65 Yrs + 06/28/2019 Influenza Vaccine High Dose 06/30/2018 PNEUMOCOCCAL POLYSACCHARIDE VACCINE 06/20/2017, 09/05/2008, 02/25/2001 TDAP Vaccine 05/26/2010 TETANUS & DIPHTHERIA TOXOID (OVER 7 YRS) 05/26/2010 documented as of this encounter Social History Tobacco Use Types Packs/Day Years Used Date Never Smoker Smokeless Tobacco: Never Used Alcohol Use Drinks/Week oz/Week Comments Never Alcohol Habits Answer Date Recorded How often do you have a drink containing alcohol? Never 01/26/2019 How many drinks containing alcohol do you have on a typical Not asked day when you are drinking? How often do you have six or more drinks on one occasion? Not asked Sex Assigned at Date Recorded Not on file Job Start Date Occupation Industry Not on file Not on file Not on file Travel History Travel Start Travel End No recent travel history available. documented as of this encounter Last Filed Vital Signs Vital Sign Reading Time Taken Comments Blood Pressure 112/64 08/11/2019 10:01 AM EST Pulse 63 08/11/2019 10:01 AM EST Temperature 36.7 08/11/2019 10:01 AM EST C (98.1 F) Respiratory Rate 20 08/11/2019 10:01 AM EST Oxygen Saturation 98% 08/11/2019 10:01 AM EST Inhaled Oxygen Concentration - - Weight - - Height - - Body Mass Index - - documented in this encounter Patient Instructions Patient InstructionsAmada Felton MD - 08/11/2019 10:00 AM ESTPlease so laboratory tests today and I will send results. I put in an order for a new wheelchair and reprinted her order for the splint documented in this encounter Progress Notes Amada Felton MD - 08/11/2019 10:00 AM EST Nursing Notes: Jacquelin Cárdenas LPN 08/11/2019 10:08 AM Signed Chief Complaint Patient presents with Follow Up Routine follow up [facility] resident Prior PCP Dr Hebert in [place] Specialists: Psychiatrist: Dr Tavares Oncologist: Dr London Urologist: Dr Jess Omer [employer] Technician: In [place] OT, Physical Therapy, ST Dentist SUBJECTIVE: Robb Paulino is an 74-y.o. female who presents for evaluation and treatment of Type 2 diabetes mellitus. A Family history: unknown Previous treatment modalities employed include diet and oral agents. Current treatment includes diet and oral agents. She sun-downs at night: Cries, laughs Staff is trying music. Staff think she appears uncomfortable in her chair, current chair is an old back up chair Physical Therapy recommends a specific chair requirements. Weight loss, from 98 to 90 lb. Nutrition recommends supplements, is on Glucerna. I asked that they monitor her weight. Speech recommends pureed diet, honey-thickened liquids; Order sent yesterday. Splint order never got sent, Aneesh Quinn Staff and nephew are starting MOLST discussion. Current monitoring regimen: home blood tests - weekly Home blood sugar records: 104, under 110 Last HgbA1c: Lab Results Component Value Date GLYCO 6.0 (H) 05/08/2019 GLYCO 6.1 (H) 04/17/2019 Last eye exam: 07/2018, has appointment in 2 weeks Last microalbumin: staff unable to obtain Last microfilament foot exam: LDL: Lab Results Component Value Date CHOL 142 04/17/2019 TRIG 206 (H) 04/17/2019 HDL 33 (L) 04/17/2019 LDL 68 04/17/2019 LDLHDLRATIO 2.1 04/17/2019 CHOLHDLRATIO 4.3 04/17/2019 Immunizations: Immunization History Administered Date(s) Administered Influenza Vaccine 65 Yrs + 06/28/2019 Influenza Vaccine High Dose 06/30/2018 PNEUMOCOCCAL POLYSACCHARIDE VACCINE 02/25/2001, 09/05/2008, 06/20/2017 TDAP Vaccine 05/26/2010 TETANUS & DIPHTHERIA TOXOID (OVER 7 YRS) 05/26/2010 Diabetic complications: none Cardiovascular risk factors: diabetes mellitus Outpatient Medications as of 08/11/2019 Medication Sig Dispense Refill acetaminophen (TYLENOL) 325 MG Oral Tab Take 2 Tabs by mouth EVERY FOUR HOURS NEEDED (pain). Cancel 2 day limit. She may use daily if needed, max 3 grams daily 120 Tab 5 ammonium lactate (AMLACTIN, LAC-HYDRIN) 12 % Apply externally Cream 1 Appl by Topical route TWICE DAILY. aspirin 81 MG Oral Chew Tab Take 1 Tab by mouth DAILY. 30 Tab 5 baclofen (LIORESAL) 10 MG Oral Tab TAKE ONE TABLET BY MOUTH 3 TIMES A DAY (MUSCLE SPASMS) 90 Tab 4 bisacodyl (BISCOLAX) [address] 10 mg per rectum NEEDED. 1 suupos into rectum on day 4 of no BM Blood Glucose Monitoring Suppl (TRUE METRIX AIR GLUCOSE METER) Does not apply Device 1 Strip by Does not apply route DAILY. E11.9 50 Device 11 carbamide peroxide (DEBROX) 6.5 % Otic Solution Place 4 Drops into both ears. As directed Cholecalciferol (VITAMIN D) 2000 units Oral Tab TAKE ONE TABLET BY MOUTH EVERY DAY AFTER DINNER WITH MEAT FAT OR OIL (DIET SUPPLEMENT) 30 Tab 9 clotrimazole (LOTRIMIN) 1 % Apply externally Cream Apply to rash right neck bid x 14 days. You can also use this as needed for groin or under breast fungal rashes. 24 g 0 Dimethicone (ALOE VESTA 2-N-1 SKIN COND EX) by Apply externally route. famotidine (PEPCID) 20 MG Oral Tab TAKE ONE TABLET BY MOUTH EVERY DAY 30 MINUTES BEFORE MEAL (HEARTBURN) 30 Tab 4 haloperidol (HALDOL) 2 MG/ML Oral Conc Take 2 mg by mouth DAILY. hydrocortisone (HYTONE) 1 % Apply externally Cream by Topical route THREE TIMES DAILY. IBUPROFEN 200 PO Take 200 mg by mouth EVERY FOUR HOURS NEEDED. ketoconazole (NIZORAL) 2 % Apply externally Shampoo 1 Appl by Topical route 2 times per week at bedtime. magnesium hydroxide (MILK OF MAGNESIA PO SUSP 400 MG/5 ML 180 ML, ODD DOSES, ) 400 MG/5ML Oral Suspension Take 30 mL by mouth NEEDED. Give 30cc by mouth every 3 days if no BM memantine (NAMENDA) 10 MG Oral Tab Take 10 mg by mouth TWICE DAILY. metFORMIN (GLUCOPHAGE) 500 MG Oral Tab Take 1 Tab by mouth DAILY. 30 Tab 5 metroNIDAZOLE (METROGEL) 1 % Apply externally Gel by Apply externally route. Mouthwashes (ANTISEPTIC MOUTH RINSE MT) by Mouth/Throat route. Multiple Vitamin Oral Tab Take 1 Tab by mouth DAILY. 30 Tab 5 Nefazodone 50 MG Oral Tab Take 25 mg by mouth TWICE DAILY. Nutritional Supplements (GLUCERNA ADVANCE SHAKE) Oral Liquid Take 1 Bottle by mouth NEEDED(nutrition management.). 30 Bottle 5 POLYETH GLYC-PROPYLENE GLYC NA Tennyson in nose. polyethylene glycol (MIRALAX) Oral Powder Take 17 g by mouth DAILY NEEDED (constipation of3 days or more). Mix with 8 oz water or juice 1 Bottle 5 pravastatin (PRAVACHOL) 10 MG Oral Tab Take 10 mg by mouth DAILY. 30 Tab 5 Psyllium (REGULOID PO) Take by mouth. sertraline (ZOLOFT) 100 MG Oral Tab Take 100 mg by mouth DAILY. 1.5 tab daily Simethicone Extra Strength 125 MG Oral Cap Take 125 mg by mouth THREE TIMES DAILY NEEDED (gas/bloating). 90 Cap 5 Skin Protectants, Misc. (PETROLEUM JELLY EX) by Apply externally route. Sodium Phosphates (ENEMA) 7-19 GM/118ML Rectal Enema Place per rectum. TRUEPLUS LANCETS 28G Does not apply Misc 1 Units by Does not apply route NEEDED ( NEEDED). 100 Each 1 No current facility-administered medications on file as of 08/11/2019. Allergies Allergen Reactions Olayinka Inhibitors Unknown Reaction Cephalosporins Unknown Reaction Losartan Unknown Reaction ARB allergy listed in past records Penicillins Unknown Reaction Tricyclic Antidepressants Unknown Reaction Past Medical History: Diagnosis Date Cataract Cerebral palsy (HCC) Dementia (HCC) Depression Diabetes mellitus (HCC) Flexion deformity of lower leg left Hiatal hernia History of right breast cancer 2005 right mastectomy Hyperlipidemia Intellectual disability Osteoarthritis hand Osteopenia started fosamax 2017 Recurrent UTI Rosacea Stasis edema of both lower extremities Past Surgical History: Procedure Laterality Date MASTECTOMY Right 2005 History reviewed. No pertinent family history. Social History Tobacco Use Smoking status: Never Smoker Smokeless tobacco: Never Used Substance Use Topics Alcohol use: Never Frequency: Never Review Of Systems Skin: negative for rash Eyes: negative for blurred vision or vision changes Ears/Nose/Throat: negative Respiratory: Denies shortness of breath or URI symptoms Cardiovascular: negative for chest pain or pressure, no orthopnea Gastrointestinal: negative for abdominal pain, difficulty swallowing Genitourinary: negative for dysuria or frequency Musculoskeletal: negative for edema, negative for ankle pain Neurologic: negative for dizziness, syncope Psychiatric: negative for depression Hematologic/Lymphatic/Immunologic: negative for unexpected weight loss Endocrine: negative for polydipsia, polyuria OBJECTIVE: BP 112/64 (BP Location: Left arm, Patient Position: Sitting) | Pulse 63 | Temp 98.1 F (36.7 C) (Tympanic) | Resp 20 | SpO2 98% General appearance: sleeping, hunched in her wheelchair, no apparent disctress. Skin: Skin color, texture, turgor normal. No rashes or lesions. Ears: negative findings: external ears normal to inspection Oropharynx: negative findings: lips normal without lesions Neck: Neck supple. No cervical or supraclavicular adenopathy. Thyroid symmetric , normal size. Carotids 4/4 without bruits. Lungs:. Lungs clear with good aeration. Chest symmetrical. Normal breath sounds bilaterally. Heart: Regular rate and rhythm. No murmurs, clicks or gallops. Abdomen: Abdomen soft, no apparent tenderness . BS normal. Extremities: Extremities without deformities, edema, or skin discoloration. Station and gait normal. Peripheral pulses: dorsalis pedis=4/4, Neuro: Gait normal, strength grossly normal and symmetric. ASSESSMENT/PLAN: ICD-9-CM ICD-10-CM 1. Type 2 diabetes mellitus without complication, without long-term current use of insulin ([facility]) 250.00 E11.9 GLYCOHEMOGLOBIN A1C COMPREHENSIVE METABOLIC PANEL GLYCOHEMOGLOBIN A1C COMPREHENSIVE METABOLIC PANEL GLYCOHEMOGLOBIN A1C 2. Spastic quadriplegic cerebral palsy ([facility]) 343.2 G80.0 DME WHEELCHAIR (AMB) 3. Intellectual disability 319 F79 4. Dementia with behavioral disturbance, unspecified dementia type ([facility]) 294.21 F03.91 5. Neurogenic bladder 596.54 N31.9 6. Vitamin D deficiency 268.9 E55.9 7. Rosacea 695.3 L71.9 8. H/O right mastectomy V45.71 Z90.11 Rx: OLAYINKA? No Statin? Yes Metformin? Yes Reviewed concepts of diabetes self-management stressing the primary role of the patient in monitoring and maintaining control of Follow up every 3 months is recommended, sooner as needed. Please so laboratory tests today and I will send results. I put in an order for a new wheelchair and reprinted her order for the splint Author: Amada Felton MD 08/11/2019 10:41 documented in this encounter Plan of Treatment Date Type Specialty Care Team Description 11/06/2019 Office Visit Family Practice Amada Felton MD [address] [place] [address] [phone] Name Type Priority Associated Diagnoses Date/Time COMPREHENSIVE METABOLIC Lab Routine Type 2 diabetes 08/11/2019 10:38 AM PANEL mellitus without EST complication, without long-term current use of insulin (HCC) GLYCOHEMOGLOBIN A1C Lab Routine Type 2 diabetes 08/11/2019 10:38 AM mellitus without EST complication, without long-term current use of insulin (HCC) Name Type Priority Associated Diagnoses Order Schedule GLYCOHEMOGLOBIN A1C Lab Routine Type 2 diabetes Expected: 08/11/2019 mellitus without (Approximate), complication, without Expires: 08/11/2020 long-term current use of insulin (HCC) COMPREHENSIVE METABOLIC Lab Routine Type 2 diabetes Expected: 09/22/2019 PANEL mellitus without (Approximate), complication, without Expires: 11/03/2019 long-term current use of insulin (HCC) Health Maintenance Due Date Last Done Comments MEDICARE ANNUAL WELLNESS 1945 VISIT URINE MICROALBUMIN 1945 ZOSTER IMMUNIZATION SERIES 1993 (1 of 2) PNEUMOCOCCAL 65+YRS (2 of 2 06/20/2018 06/20/2017, 09/05/2008, - PCV13) 02/25/2001 HEMOGLOBIN A1C 11/06/2019 05/08/2019, 04/17/2019, 01/26/2019, Additional history exists FALL RISK ASSESSMENT 03/24/2020 03/24/2019, 03/24/2019 FOOT EXAM 03/24/2020 03/24/2019, 03/24/2019, 03/24/2019, Additional history exists DTaP/Tdap/Td Vaccines (2 - 05/26/2020 05/26/2010, 05/26/2010 Tdap) Diabetic Eye Exam 07/30/2020 07/30/2018 DEPRESSION SCREENING 03/24/2022 Postponed from 1955 (Other) OSTEOPOROSIS SCREENING 03/29/2027 03/29/2017 INFLUENZA VACCINE Completed 06/28/2019, 06/30/2018 HEPATITIS A IMMUNIZATION Aged Out No longer eligible SERIES based on patient's age to complete this topic HPV IMMUNIZATION SERIES Aged Out No longer eligible based on patient's age to complete this topic MENINGOCOCCAL VACCINE IMM Aged Out No longer eligible based on patient's age to complete this topic documented as of this encounter Goals Goal Patient Goal Associated Recent Patient-Stated? Author Type Problems Progress Depression Depression No crystal Felton (PHQ-9) Amada Salinas, total score < 5 Note: This is an individualized treatment (depression) goal for Robb Paulino: Displayed above is your goal for a depression screening (PHQ-9) score that would indicate good control of your depression. Glycohemoglobin A1c < 7.0 Diabetes 6.0 (05/08/2019 9:01 No Amada Felton AM EDTRick Salinas MD Note: This is an individualized treatment (diabetes control, HgbA1C) goal for Robb Paulino: Displayed above is your progress towards your HgbA1C goal. Your goal is shown above (on the left); your most recent HgbA1C is shown on the right. Note that lower numbers are better. Keep a regular sleep schedule Lifestyle No Amada Felton MD Note: This is an individualized lifestyle goal for Robb Paulino: Please maintain a regular sleep schedule. This may help with some symptoms of depression. Keep immunizations current Lifestyle No Amada Felton MD Note: This is an individualized lifestyle goal for Robb Paulino: Please be sure to keep up-to-date on recommended immunizations. For example, this would include a yearly influenza vaccine. Immunization status can be seen by looking at the Health Maintenance sections of your [facility], Plan of Care, and any After Visit Summaries. Take all prescribed medications as Self-management No Amada Felton MD directed Note: This is an individualized self-management goal for Robb Paulino: Please take all prescribed medications as directed. 1. Do not skip doses. If you cannot afford your medications, talk with your doctor. 2. Use a pill reminder system such as a pill box if needed. Your pharmacist can help you with this. 3. Contact your Pharmacy 5 days before your medication runs out. If you cannot take your medications for any reasons, talk with your doctor. 4. Please bring all of your medication bottles and inhalers (or a list of all your medications/inhalers) with you to every visit. Potential barriers to meeting all of your care plan goals will continue to be addressed on an ongoing basis. documented as of this encounter Results Not on filedocumented in this encounter Visit Diagnoses Diagnosis Type 2 diabetes mellitus without complication, without long-term current use of insulin (HCC) Spastic quadriplegic cerebral palsy (HCC) Congenital quadriplegia Intellectual disability Unspecified intellectual disabilities Dementia with behavioral disturbance, unspecified dementia type (HCC) Neurogenic bladder Neurogenic bladder, NOS Vitamin D deficiency Unspecified vitamin D deficiency Rosacea H/O right mastectomy Acquired absence of breast and nipple documented in this encounter Insurance Payer Benefit Plan / Subscriber ID Effective Dates Phone Address Type Group MEDICARE MEDICARE PART A xxxxxxxxxxx 1973-Present Medicare & B MEDICAID [facility] xxxxxxxx 2018-Present Medicaid [place] documented as of this encounter"
[2019-08-22 11:34] VITALS: BP 122/70
--- NOTE | 2019-08-22 11:59 | UC ---
Throat Pain/Nasal William HPI - HPI Summary HPI Summary: 74-year-old non-verbal female who is from a [facility]. The caregiver noticed that her tongue was coated with whitish yellow stuff today. She's not been on any antibiotics recently. The caregiver wanted her checked for thrush. She has had a very mild nasal congestion over the past couple of days but no fever or any other symptoms. - History of Current Complaint Chief Complaint: UCGeneralIllness Stated Complaint: MOUTH COMPLAINT Time Seen by Provider: 08/22/19 11:38 Hx Obtained From: Family/Gas Check Pad Maker Hx Last Menstrual Period: post ?: No Onset/Duration: Gradual Onset Severity: Mild Pain Intensity: 0 Cough: None Associated Signs & Symptoms: Positive: Nasal Discharge - Caregiver thought that she had of mild nasal congestion over the past couple of days but no other cold symptoms - Allergies/Home Medications Allergies/Adverse Reactions: Allergies Allergy/AdvReac Type Severity Reaction Status Date / Time ALINA Inhibitors Allergy Anaphylatic Verified 08/22/19 11:26 Shock Cephalosporins Allergy Unknown Verified 08/22/19 11:26 Reaction Details Penicillins Allergy Unknown Verified 08/22/19 11:26 Reaction Details tomato Allergy Hives Verified 08/22/19 11:26 trazodone Allergy Unknown Verified 08/22/19 11:26 Reaction Details Tricyclic Compounds Allergy Unknown Verified 08/22/19 11:26 Reaction Details angiotensen receptor blockers Allergy Severe unk Uncoded 08/22/19 11:26 PMH/Surg Hx/FS Hx/Imm Hx Previously Healthy: Yes Endocrine History: Diabetes Cardiovascular History: Hypertension Cancer History: Breast Cancer - Surgical History Surgical History: Yes Surgery Procedure, Year, and Place: Right mastectomy 2004 - Family History Known Family History: Negative: Cardiac Disease, Hypertension - Social History Lives: [facility] Alcohol Use: None Substance Use Type: None Smoking Status (MU): Never Smoked Tobacco - Immunization History Most Recent Influenza Vaccination: UTD Most Recent Pneumonia Vaccination: UTD Review of Systems All Other Systems Reviewed And Are Negative: Yes Skin: Positive: Other - The caregiver felt that her tongue had some whitish yellow coating to it today. ENT: Positive: Nasal Discharge - The acute care registered nurse stated she's had some nasal congestion over the past few days but no other cold symptoms. Is Patient Immunocompromised?: No Physical Exam Triage Information Reviewed: Yes Appearance: Well-Appearing, No Pain Distress, Well-Nourished Vital Signs: Initial Vital Signs Temp 98.1 F 08/22/19 11:26 Pulse 72 08/22/19 11:26 Resp 18 08/22/19 11:26 BP 122/70 08/22/19 11:26 Pulse Ox 99 08/22/19 11:26 Vital Signs Reviewed: Yes ENT: Positive: Pharynx normal, TMs normal, Uvula midline, Other - The tongue has some yellow coating to it but no evidence of thrush the mucous membranes are moist and normal pink. Pharynx is normal in color. Neck: Positive: Supple, Nontender, No Lymphadenopathy Respiratory: Positive: Lungs clear, Normal breath sounds, No respiratory distress, No accessory muscle use Cardiovascular: Positive: RRR, No Murmur, Brisk Capillary Refill Psychological: Positive: Other: - Patient is acting per her norm according to the caregiver. Skin: Positive: Other - See notes above. Throat Pain/Nasal Course/Dx - Course Course Of Treatment: At this point in time the patient may have a mild upper respiratory illness however I did not find any evidence of thrush. They are to observe for any worsening symptoms and have her rechecked as needed. - Differential Dx/Diagnosis Provider Diagnosis: URI (upper respiratory infection) Discharge ED - Sign-Out/Discharge Documenting (check all that apply): Patient Departure All imaging exams completed and their final reports reviewed: No Studies - Discharge Plan Condition: Good Disposition: HOME Patient Education Materials: Upper Respiratory Infection (ED) Referrals: Amada Felton MD [Primary Care Provider] - Additional Instructions: Observe for any worsening symptoms. Follow-up with your primary care provider as needed. - Billing Disposition and Condition Condition: GOOD Disposition: Home
== END 2019-08-22 11:50 | disposition home or self-care (01) ==
LOC: UCEAST 11:11
DX: J06.9 Acute upper respiratory infection, unspecified (principal); E11.9 Type 2 diabetes mellitus without complications; I10 Essential (primary) hypertension; Z85.3 Personal history of malignant neoplasm of breast; Z88.0 Allergy status to penicillin; Z88.1 Allergy status to other antibiotic agents; Z91.018 Allergy to other foods; Z88.8 Allergy status to other drugs, medicaments and biological substances
CPT/HCPCS: 99211; G0463

== ENCOUNTER 2019-10-23 10:16 | Inpatient (IN) | payer MEDICARE, MEDICAID ==
[2019-10-23] MEDS ORDERED: NS 0.9% 1000 ML** 1,000 ML IV.FLUID IV ONE (10:54)
--- NOTE | 2019-10-23 10:58 | ED ---
Altered Mental Status - HPI Summary HPI Summary: The patient is a 74-year-old female presenting to [facility] emergency department accompanied by income tax manager with a chief complaint of possible altered mental status over the last few days. Per income tax manager, the patient has been increasingly fatigued and lethargic with generalized weakness compared to her baseline, and she not speaking much although has been mumbling occasionally. They have also noticed that the patients heart rate has been borderline tachycardic in the high 90s to low 100s BPM, her blood pressure has been elevated, and they have also been checking her glucose levels that have also been higher in the 140s, all of which is abnormal for her. She has been experiencing a decreased oral intake and hasnt taken her medications. She denies any recent sicknesses, or symptoms of fever, cough, or congestion. Past medical history significant for diabetes, hyperlipidemia, hypertension, dementia, developmental delay, cerebral palsy. Nonsmoker, no alcohol use, no substance use. Medications reviewed. Allergies noted. Level 5 caveat secondary to dementia. History obtained from income tax manager and medical records. Home Medications Medication Instructions Recorded Confirmed Type Acetaminophen TAB* [Tylenol TAB*] 650 mg PO Q4H PRN 12/31/16 10/23/19 History Aspirin EC TAB* [Ecotrin EC Low 81 mg PO DAILY 12/31/16 10/23/19 History Dose 81 MG*] Baclofen TAB* [Lioresal TAB*] 10 mg PO TID 12/31/16 10/23/19 History Bisacodyl 10 mg SUPP [Dulcolax 10 mg NM DAILY PRN 12/31/16 10/23/19 History Supp*] Cholecalciferol (Vitamin D3) 2,000 unit PO DAILY 12/31/16 10/23/19 History [Vitamin D3] Famotidine TAB* [Pepcid 20 MG TAB*] 20 mg PO DAILY 12/31/16 10/23/19 History Hydrocortisone 1% CREAM* [Hytone 1 applic TOPICAL TID 12/31/16 10/23/19 History Cream 1%*] Ibuprofen TAB* [Advil TAB*] 200 mg PO Q4HR PRN 12/31/16 10/23/19 History Memantine TAB* [Namenda TAB*] 10 mg PO BID 12/31/16 10/23/19 History Metformin ER (NF) 500 mg PO DAILY 12/31/16 10/23/19 History Multivitamins/Minerals TAB* 1 tab PO DAILY 12/31/16 10/23/19 History [Theragran/minerals TAB*] Pravastatin (NF) [Pravachol (NF)] 10 mg PO DAILY 12/31/16 10/23/19 History Sertraline* [Zoloft*] 100 mg PO DAILY MDD 150mg 12/31/16 10/23/19 History Sodium Phosphate ADULT ENEMA* 1 bottle NM DAILY PRN 12/31/16 10/23/19 History [Fleet Enema*] Haloperidol CONC. EMY (NF) 2 mg PO QPM 03/18/19 10/23/19 History [Haloperidol CONC. SOLUTION (NF)] Ketoconazole 1 applic TOPICAL .TWICE WEEKLY 04/12/19 10/23/19 History Magnesium Hydroxide LIQ* [Milk of 30 ml PO Q3D PRN 04/12/19 10/23/19 History Magnesia LIQ*] Nut.tx.gluc.intoler,Lac-Fr,Soy 237 ml PO DAILY 04/12/19 10/23/19 History [Glucerna] Polyethylene Glycol 3350* 17 gm PO DAILY PRN 04/12/19 10/23/19 History [Miralax*] metroNIDAZOLE [Metrogel] 1 % TOPICAL DAILY 04/12/19 10/23/19 History Psyllium Husk [Reguloid] 1 cap PO DAILY 04/30/19 10/23/19 History ALPRAZolam TAB* [Xanax TAB*] 0.25 mg PO DAILY PRN 10/23/19 10/23/19 History Ammonium Lactate 12% [Lac-Hydrin 1 applic TOPICAL BID 10/23/19 10/23/19 History 12 %] Carbamide Peroxide 6.5% OTIC* 4 drop BOTH EARS DAILY 10/23/19 10/23/19 History [DEBROX 6.5% Otic*] Clotrimazole 1% TOPICAL (NF) 1 applic TOPICAL BID 10/23/19 10/23/19 History [Lotrimin 1% TOPICAL (NF)] Miconazole Nitrate [Aloe [place]] 1 applic TOPICAL DAILY 10/23/19 10/23/19 History Nefazodone HCl TAB* [Serzone TAB*] 25 mg PO BID 10/23/19 10/23/19 History Nystatin SUSPENSION ORAL SYR* 5 ml PO QID 10/23/19 10/23/19 History Petrolatum,White [White Petroleum 1 applic TOPICAL DAILY 10/23/19 10/23/19 History Jelly] Polyeth Gly-Propylene Gly Nasa 1 spray BOTH NARES DAILY 10/23/19 10/23/19 History Simethicone TAB* [Mylicon TAB*] 125 mg PO TID PRN 10/23/19 10/23/19 History - History Of Current Complaint Chief Complaint: EDGeneral Stated Complaint: WEAKNESS, NOT ACTING LIKE HER SELF Time Seen by Provider: 10/23/19 10:39 Hx Obtained From: Family/Systems Applications Programming Lead, Medical Records Hx From Patient Unobtainable Due To: Dementia - Level 5 caveat Hx Last Menstrual Period: post Onset/Duration: Still Present Timing: Lasting Days Severity Initially: Mild Severity Currently: Moderate Character: Lethargy Aggravating Factor(s): Unknown Alleviating Factor(s): Unknown Associated Signs And Symptoms: Positive: Weakness. Negative: Fever - Allergies/Home Medications Allergies/Adverse Reactions: Allergies Allergy/AdvReac Type Severity Reaction Status Date / Time ALINA Inhibitors Allergy Anaphylatic Verified 10/23/19 10:24 Shock Cephalosporins Allergy Unknown Verified 10/23/19 10:24 Reaction Details Penicillins Allergy Unknown Verified 10/23/19 10:24 Reaction Details tomato Allergy Hives Verified 10/23/19 10:24 trazodone Allergy Unknown Verified 10/23/19 10:24 Reaction Details Tricyclic Compounds Allergy Unknown Verified 10/23/19 10:24 Reaction Details angiotensen receptor blockers Allergy Severe unk Uncoded 10/23/19 10:24 Home Medications: Home Medications Acetaminophen TAB* [Tylenol TAB*] 650 mg PO Q4H PRN 12/31/16 [History Confirmed 10/23/19] Aspirin EC TAB* [Ecotrin EC Low Dose 81 MG*] 81 mg PO DAILY 12/31/16 [History Confirmed 10/23/19] Baclofen TAB* [Lioresal TAB*] 10 mg PO TID 12/31/16 [History Confirmed 10/23/19] Bisacodyl 10 mg SUPP [Dulcolax Supp*] 10 mg NM DAILY PRN 12/31/16 [History Confirmed 10/23/19] Cholecalciferol (Vitamin D3) [Vitamin D3] 2,000 unit PO DAILY 12/31/16 [History Confirmed 10/23/19] Famotidine TAB* [Pepcid 20 MG TAB*] 20 mg PO DAILY 12/31/16 [History Confirmed 10/23/19] Hydrocortisone 1% CREAM* [Hytone Cream 1%*] 1 applic TOPICAL TID 12/31/16 [ History Confirmed 10/23/19] Ibuprofen TAB* [Advil TAB*] 200 mg PO Q4HR PRN 12/31/16 [History Confirmed 10/23] Memantine TAB* [Namenda TAB*] 10 mg PO BID 12/31/16 [History Confirmed 10/23/19] Metformin ER (NF) 500 mg PO DAILY 12/31/16 [History Confirmed 10/23/19] Multivitamins/Minerals TAB* [Theragran/minerals TAB*] 1 tab PO DAILY 12/31/16 [ History Confirmed 10/23/19] Pravastatin (NF) [Pravachol (NF)] 10 mg PO DAILY 12/31/16 [History Confirmed ] Sertraline* [Zoloft*] 150 mg PO DAILY MDD 150mg 12/31/16 [History Confirmed ] Sodium Phosphate ADULT ENEMA* [Fleet Enema*] 1 bottle NM DAILY PRN 12/31/16 [ History Confirmed 10/23/19] Haloperidol CONC. EMY (NF) [Haloperidol CONC. SOLUTION (NF)] 2 mg PO QPM [History Confirmed 10/23/19] Ketoconazole 1 applic TOPICAL .TWICE WEEKLY 04/12/19 [History Confirmed 10/23/19 ] Magnesium Hydroxide LIQ* [Milk of Magnesia LIQ*] 30 ml PO Q3D PRN 04/12/19 [ History Confirmed 10/23/19] Nut.tx.gluc.intoler,Lac-Fr,Soy [Glucerna] 237 ml PO DAILY 04/12/19 [History Confirmed 10/23/19] Polyethylene Glycol 3350* [Miralax*] 17 gm PO DAILY PRN 04/12/19 [History Confirmed 10/23/19] metroNIDAZOLE [Metrogel] 1 % TOPICAL BID 04/12/19 [History Confirmed 10/23/19] Ammonium Lactate 12% [Lac-Hydrin 12 %] 1 applic TOPICAL BID 10/23/19 [History Confirmed 10/23/19] Carbamide Peroxide 6.5% OTIC* [DEBROX 6.5% Otic*] 4 drop BOTH EARS DAILY [History Confirmed 10/23/19] Clotrimazole 1% TOPICAL (NF) [Lotrimin 1% TOPICAL (NF)] 1 applic TOPICAL BID [History Confirmed 10/23/19] Nefazodone HCl TAB* [Serzone TAB*] 50 mg PO BID 10/23/19 [History Confirmed ] Nystatin SUSPENSION ORAL SYR* 5 ml PO QID 10/23/19 [History Confirmed 10/23/19] Petrolatum,White [White Petroleum Jelly] 1 applic TOPICAL DAILY 10/23/19 [ History Confirmed 10/23/19] Simethicone TAB* [Mylicon TAB*] 125 mg PO TID PRN 10/23/19 [History Confirmed ] PMH/Surg Hx/FS Hx/Imm Hx Endocrine/Hematology History: Reports: Hx Diabetes Denies: Hx Systemic Lupus Erythematosus Cardiovascular History: Reports: Hx Hypercholesterolemia - ?takes statin, Hx Hypertension Denies: Hx Congestive Heart Failure History: Denies: Hx Dialysis, Hx Renal Disease Musculoskeletal History: Denies: Hx Rheumatoid Arthritis Sensory History: Reports: Hx Contacts or Glasses Denies: Hx Hearing Aid Opthamlomology History: Reports: Hx Contacts or Glasses Neurological History: Reports: Hx Dementia, Hx Developmental Delay, Other Neuro Impairments/Disorders - cerebral palsy - takes baclofen Psychiatric History: Reports: Hx Depression - zoloft - Cancer History Cancer Type, Location and Year: breast 2005 Hx Chemotherapy: Yes - chemo 2004 per income tax manager Hx Radiation Therapy: Yes - 2005 - Surgical History Surgical History: Yes Surgery Procedure, Year, and Place: Right mastectomy 2004 Infectious Disease History: No Infectious Disease History: Denies: Traveled Outside the [place] in Last 30 Days - Family History Known Family History: Negative: Cardiac Disease, Hypertension - Social History Alcohol Use: None Hx Substance Use: No Substance Use Type: Reports: None Hx Tobacco Use: No Smoking Status (MU): Never Smoked Tobacco Review of Systems Positive: Fatigue - and lethargic, Other - tachycardic, hypertensive, mild hyperglycemia (per income tax manager). Negative: Fever Negative: Cough, Other - congestion Neurological/Mental Status: Other - decreased speaking, mumbling Positive: Weakness - generalized All Other Systems Reviewed And Are Negative: No - Comments Additional Review of Systems Comments: Level 5 caveat secondary to dementia. Physical Exam - Summary Physical Exam Summary: Appearance: The patient is well-nourished in no acute distress and in no acute pain. Patient uncooperative with exam, exam is limited. Skin: The skin is warm and dry, and skin color reflects adequate perfusion. HEENT: The head is normocephalic and atraumatic. The pupils are equal and reactive. The conjunctivae are clear and without drainage. Nares are patent and without drainage. Mouth reveals moist mucous membranes, and the throat is without erythema and exudate. The external ears are intact. The ear canals are patent and without drainage. The tympanic membranes are intact. Neck: The neck is supple with full range of motion and non-tender. There are no carotid bruits. There is no neck vein distension. Respiratory: Chest is non-tender. Lungs are clear to auscultation and breath sounds are symmetrical and equal. Cardiovascular: Heart is regular rate and rhythm. There is no murmur or rub auscultated. There is no peripheral edema and pulses are symmetrical and equal. Abdomen: The abdomen is soft and non-tender. There are normal bowel sounds heard in all four quadrants and there is no organomegaly palpated. Musculoskeletal: There is no back tenderness noted. Extremities are non-tender with full range of motion. There is good capillary refill. There is no peripheral edema or calf tenderness elicited. Neurological: Patient is alert and oriented to person, place and time. The patient has symmetrical motor strength in all four extremities. Cranial nerves are grossly intact. Deep tendon reflexes are symmetrical and equal in all four extremities. Psychiatric: The patient has an appropriate affect and does not exhibit any anxiety or depression. Triage Information Reviewed: Yes Vital Signs On Initial Exam: Initial Vitals Temp Pulse Resp BP Pulse Ox 99.0 F 110 12 152/98 96 10/23/19 10:21 10/23/19 10:21 10/23/19 10:21 10/23/19 10:21 10/23/19 10:21 Vital Signs Reviewed: Yes Completion Of Physical Exam Limited Due To: Dementia, Level 5 Procedures - Sedation Patient Received Moderate/Deep Sedation with Procedure: No Diagnostics - Vital Signs Vital Signs Temp Pulse Resp BP Pulse Ox 10/23/19 10:21 99.0 F 110 12 152/98 96 - Laboratory Result Diagrams: 10/23/19 11:34 10/23/19 11:34 Lab Statement: Any lab studies that have been ordered have been reviewed, and results considered in the medical decision making process. - Radiology Chest X-Ray Radiology Interpretation Completed By: Radiologist Summary of Radiographic Findings: Impression: No evidence for active cardiopulmonary disease. This imaging report was reviewed by Dr. Ling. - EKG 1201 Cardiac Rate: NL - 95 BPM EKG Rhythm: Sinus Rhythm ST Segment: Normal Ectopy: None Summary of EKG Findings: Normal sinus rhythm, normal ST, no ectopy, left axis deviation. This EKG was reviewed and interpreted by Dr. Ling. Altered Mental Statu Course/Dx - Course Course Of Treatment: Ms. Paulino was found to be severely dehydrated and hypernatremic. She had an equivocal urine. She was tachycardic on arrival which are related to dehydration and not necessarily sepsis. She was rehydrated with normal saline while the workup was in progress and I spoke with the hospitalist about admission for slow rehydration and correction of her hyponatremia. - Diagnoses Provider Diagnoses: Severe dehydration, Hyperkalemia - Provider Notifications Discussed Care Of Patient With: Radha Bhatti - hospitalist Time Discussed With Above Provider: 13:45 Instructed by Provider To: Other - I discussed the patients case with Dr. Bhatti, who accepts the patient for admission. - Critical Care Time Critical Care Time: 30-74 min Discharge ED - Sign-Out/Discharge Documenting (check all that apply): Patient Departure - Patient accepted for admission by Dr. Bhatti. - Discharge Plan Condition: Stable Disposition: ADMITTED TO [facility] Referrals: Amada Felton MD [Primary Care Provider] - - Billing Disposition and Condition Condition: STABLE Disposition: Admitted to [facility] - Attestation Statements Document Initiated by Yessenia: Yes Documenting Scribe: Tamy Talbert Provider For Whom Yessenia is Documenting (Include Credential): Dr. Krishna Ling MD Scribe Attestation: Tamy Fregoso scribed for Dr. Krishna Ling MD on 10/23/19 at 1557. Scribe Documentation Reviewed: Yes Provider Attestation: The documentation as recorded by the Tamy monet accurately reflects the service I personally performed and the decisions made by me, Dr. Krishna Ling MD Status of Yessenia Document: Viewed
--- OUTSIDE RECORDS SUMMARY | 2019-10-23 11:21 | XMS REPORT | Summary of Care ---
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 externally Gel POLYETH GLYC-PROPYLENE [place] in nose. 0 Active GLYC NA IBUPROFEN [...] % Apply externally THREE TIMES Cream DAILY. Nefazodone 50 MG Oral Take 25 mg by 0 Active Tab mouth TWICE DAILY. Cholecalciferol TAKE ONE TABLET 30 Tab 9 04/18/2019 Active (VITAMIN D) 2000 units BY MOUTH EVERY Oral Tab DAY AFTER DINNER WITH MEAT FAT OR OIL (DIET SUPPLEMENT) famotidine (PEPCID) 20 TAKE ONE TABLET 30 [...] complication, without long-term current use of insulin ([facility]) TRUEPLUS LANCETS 28G 1 Units by Does 100 Each 1 07/04/2019 Active Does not apply not apply route MiscIndications: Type 2 NEEDED ( diabetes mellitus NEEDED). without complication, without long-term current use of insulin ([facility]) polyethylene glycol Take 17 g by 1 Bottle 5 07/21/2019 Active (MIRALAX) Oral mouth DAILY PowderIndications: NEEDED Constipation, (constipation of unspecified 3 days or more). constipation type Mix with 8 oz water or juice Nutritional Supplements Take 1 Bottle by 30 Bottle 5 07/26/2019 Active (GLUCERNA ADVANCE mouth NEEDED SHAKE) Oral (nutrition LiquidIndications: management.). Intellectual disability baclofen (LIORESAL) 10 TAKE ONE TABLET 90 Tab 5 08/15/2019 Active MG Oral Tab BY MOUTH 3 TIMES A DAY (MUSCLE SPASMS) ASPIRIN LOW DOSE 81 MG TAKE 1 TABLET BY 30 Tab 9 08/15/2019 Active Oral Chew MOUTH EVERY DAY TabIndications: Type 2 MAY CRUSH diabetes mellitus without complication, without long-term current use of insulin ([facility]) metFORMIN (GLUCOPHAGE) TAKE 1 TABLET BY 30 Tab 11 08/15/2019 Active 500 MG Oral Tab MOUTH EVERY DAY MAY CRUSH pravastatin (PRAVACHOL) TAKE 1 TABLET BY 30 Tab 4 09/11/2019 Active 10 MG Oral Tab MOUTH EVERY DAY ALPRAZolam (XANAX) 0.25 Take 1 Tab by 30 Tab 0 10/12/2019 Active MG Oral TabIndications: mouth DAILY Situational anxiety NEEDED (prior to bathing). Max Daily Amount: 0.25 mg. Multiple Vitamin Take 1 Tab by 30 Tab 11 10/17/2019 Active (TAB-A-CIELO) Oral mouth DAILY. TabIndications: Cerebral palsy, unspecified type ([facility]) nystatin (MYCOSTATIN) Take 5 mL by 280 mL 0 10/17/2019 Active 033335 UNIT/ML mouth FOUR TIMES Mouth/Throat DAILY. SuspensionIndications: Oral thrush documented as of this encounter (statuses as of 10/17/2019) Active Problems Problem Noted Date Neurogenic bladder [...] as of this encounter (statuses as of 10/17/2019) Immunizations Name Administration Dates Next Due Influenza [...] Assigned at Date Recorded Not on file documented as of this encounter Last Filed Vital Signs Vital Sign Reading Time Taken Comments Blood Pressure 122/62 10/17/2019 3:33 PM EST Pulse 130 10/17/2019 3:33 PM EST Temperature - - Respiratory Rate - - Oxygen Saturation 98% 10/17/2019 3:33 PM EST Inhaled Oxygen Concentration - - Weight 41.2 kg (90 lb 12.8 oz) 10/17/2019 3:33 PM EST Height - - Body Mass Index 21.1 05/12/2019 1:48 PM EDT documented in this encounter Patient Instructions Patient InstructionsSofía Shipley FNP - 10/17/2019 3:20 PM ESTLots of fluids Nystatin oral 4 times a day [place] on tongue Monitor blood sugar and temp Labs next month as plannedElectronically signed by Sofía Shipley FNP at 10/17 3:45 PM EST documented in this encounter Progress Notes Sofía Shipley FNP - 10/17/2019 3:20 PM EST PATIENT: Robb Paulino : 1945 DATE OF SERVICE: 10/17/2019 CHIEF COMPLAINT: Chief Complaint Patient presents with ? 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 Blood Sugar Level have been high Subjective HISTORY OF PRESENT ILLNESS: Robb Paulino is a 74-y.o. female. HPI Coating on tongue for a few days. BG higher than usual - 135 this AM, tired and sleeping more Past Medical History: Diagnosis Date ? Cataract ? Cerebral palsy (HCC) ? Dementia (HCC) ? Depression ? Diabetes mellitus (HCC) ? Flexion deformity of lower leg left ? Hiatal hernia ? History of right breast cancer 2005 right mastectomy ? Hyperlipidemia ? Intellectual disability ? Osteoarthritis hand ? Osteopenia started fosamax 2016 ? Recurrent UTI ? Rosacea ? Stasis edema of both lower extremities History reviewed. No pertinent family history. Current Outpatient Medications Medication Sig ? acetaminophen (TYLENOL) 325 MG Oral Tab Take 2 Tabs by mouth EVERY FOUR HOURS NEEDED (pain). Cancel 2 day limit. She may use daily if needed, max 3 grams daily ? ALPRAZolam (XANAX) 0.25 MG Oral Tab Take 1 Tab by mouth DAILY NEEDED (prior to bathing). Max Daily Amount: 0.25 mg. ? ammonium lactate (AMLACTIN, LAC-HYDRIN) 12 % Apply externally Cream 1 Appl by Topical route TWICE DAILY. ? ASPIRIN LOW DOSE 81 MG Oral Chew Tab TAKE 1 TABLET BY MOUTH EVERY DAY MAY CRUSH ? baclofen (LIORESAL) 10 MG Oral Tab TAKE ONE TABLET BY MOUTH 3 TIMES A DAY (MUSCLE SPASMS) ? bisacodyl (BISCOLAX) [address] 10 mg per rectum NEEDED. 1 suupos into rectum on day 4 of no BM ? Blood Glucose Monitoring Suppl (TRUE METRIX AIR GLUCOSE METER) Does not apply Device 1 Stripby Does not apply route DAILY. E11.9 ? carbamide peroxide (DEBROX) 6.5 % Otic Solution Place 4 Drops into both ears. As directed ? Cholecalciferol (VITAMIN D) 2000 units Oral Tab TAKE ONE TABLET BY MOUTH EVERY DAY AFTER DINNER WITH MEAT FAT OR OIL (DIET SUPPLEMENT) ? clotrimazole (LOTRIMIN) 1 % Apply externally Cream Apply to rash right neck bid x 14 days.You can also use this as needed for groin or under breast fungal rashes. ? Dimethicone (ALOE VESTA 2-N-1 SKIN COND EX) by Apply externally route. ? famotidine (PEPCID) 20 MG Oral Tab TAKE ONE TABLET BY MOUTH EVERY DAY 30 MINUTES BEFORE MEAL(HEARTBURN) ? haloperidol (HALDOL) 2 MG/ML Oral Conc Take 2 mg by mouth EVERY EVENING. ? hydrocortisone (HYTONE) 1 % Apply externally Cream by Topical route THREE TIMES DAILY. ? IBUPROFEN 200 PO Take 200 mg by mouth EVERY FOUR HOURS NEEDED. ? ketoconazole (NIZORAL) 2 % Apply externally Shampoo 1 Appl by Topical route 2 times per weekat bedtime. ? magnesium hydroxide (MILK OF MAGNESIA PO SUSP 400 MG/5 ML 180 ML, ODD DOSES, ) 400 MG/5ML Oral Suspension Take 30 mL by mouth NEEDED. Give 30cc by mouth every 3 days if no BM ? memantine (NAMENDA) 10 MG Oral Tab Take 10 mg by mouth TWICE DAILY. ? metFORMIN (GLUCOPHAGE) 500 MG Oral Tab TAKE 1 TABLET BY MOUTH EVERY DAY MAY CRUSH ? metroNIDAZOLE (METROGEL) 1 % Apply externally Gel by Apply externally route. ? Mouthwashes (ANTISEPTIC MOUTH RINSE MT) by Mouth/Throat route. ? Multiple Vitamin (TAB-A-CIELO) Oral Tab Take 1 Tab by mouth DAILY. ? Nefazodone 50 MG Oral Tab Take 25 mg by mouth TWICE DAILY. ? Nutritional Supplements (GLUCERNA ADVANCE SHAKE) Oral Liquid Take 1 Bottle by mouth NEEDED (nutrition management.). ? nystatin (MYCOSTATIN) 308957 UNIT/ML Mouth/Throat Suspension Take 5 mL by mouth FOUR TIMES DAILY. ? POLYETH GLYC-PROPYLENE GLYC NA [place] in nose. ? polyethylene glycol (MIRALAX) Oral Powder Take 17 g by mouth DAILY NEEDED (constipation of 3 days or more). Mix with 8 oz water or juice ? pravastatin (PRAVACHOL) 10 MG Oral Tab TAKE 1 TABLET BY MOUTH EVERY DAY ? Psyllium (REGULOID PO) Take by mouth. ? sertraline (ZOLOFT) 100 MG Oral Tab Take 100 mg by mouth DAILY. 1.5 tab daily ? Simethicone Extra Strength 125 MG Oral Cap Take 125 mg by mouth THREE TIMES DAILY NEEDED (gas/bloating). ? Skin Protectants, Misc. (PETROLEUM JELLY EX) by Apply externally route. ? Sodium Phosphates (ENEMA) 7-19 GM/118ML Rectal Enema Place per rectum. ? TRUEPLUS LANCETS 28G Does not apply Misc 1 Units by Does not apply route NEEDED ( NEEDED). No current facility-administered medications for this visit. Allergies Allergen Reactions ? Olayinka Inhibitors Unknown Reaction ? Cephalosporins Unknown Reaction ? Losartan Unknown Reaction ARB allergy listed in past records ? Penicillins Unknown Reaction ? Tricyclic Antidepressants Unknown Reaction Social History Socioeconomic History ? Marital status: Single Spouse name: Not on file ? Number of children: Not on file ? Years of education: Not on file ? Highest education level: Not on file Occupational History ? Not on file Social Needs ? Financial resource strain: Not on file ? Food insecurity Worry: Not on file Inability: Not on file ? Transportation needs Medical: Not on file Non-medical: Not on file Tobacco Use ? Smoking status: Never Smoker ? Smokeless tobacco: Never Used Substance and Sexual Activity ? Alcohol use: Never Frequency: Never ? Drug use: Never ? Sexual activity: Never Lifestyle ? Physical activity Days per week: Not on file Minutes per session: Not on file ? Stress: Not on file Relationships ? Social connections Talks on phone: Not on file Gets together: Not on file Attends druze service: Not on file Active member of club or organization: Not on file Attends meetings of clubs or organizations: Not on file Relationship status: Not on file ? Intimate partner violence Fear of current or ex partner: Not on file Emotionally abused: Not on file Physically abused: Not on file Forced sexual activity: Not on file Other Topics Concern ? Not on file Social History Narrative Lives at [facility] Family not involved, but has a nephew for consents. Diet per speech consult: Pureed solids and honey thickened liquids. REVIEW OF SYSTEMS: Review of Systems Constitutional: Positive for malaise/fatigue. Negative for chills and fever. Respiratory: Negative for cough. Gastrointestinal: Negative for diarrhea and vomiting. Objective PHYSICAL EXAM: VITALS: BP 122/62 | Pulse (!) 130 | Wt (!) 90 lb 12.8 oz (41.2 kg) | SpO2 98 % | BMI 21.10 kg/m Body mass index is 21.1 kg/m. Physical Exam Vitals signs and nursing note reviewed. Constitutional: Comments: In Wheelchair HENT: Head: Normocephalic and atraumatic. Nose: No rhinorrhea. Mouth/Throat: Mouth: Mucous membranes are moist. Pharynx: No posterior oropharyngeal erythema. Neck: Musculoskeletal: No neck rigidity. Cardiovascular: Rate and Rhythm: Normal rate and regular rhythm. Pulmonary: Effort: Pulmonary effort is normal. Breath sounds: Normal breath sounds. Lymphadenopathy: Cervical: No cervical adenopathy. Skin: General: Skin is warm. Capillary Refill: Capillary refill takes less than 2 seconds. Coloration: Skin is not ashen, cyanotic or pale. Findings: No rash. Comments: flushed Neurological: Mental Status: She is alert and oriented to person, place, and time. Psychiatric: Behavior: Behavior is cooperative. ASSESSMENT / IMPRESSION: ICD-9-CM ICD-10-CM 1. Oral thrush 112.0 B37.0 nystatin (MYCOSTATIN) 216207 UNIT/ML Mouth/Throat Suspension 2. Viral illness 079.99 B34.9 Plan Lots of fluids Nystatin oral 4 times a day [place] on tongue Monitor blood sugar and temp Labs next month as planned Author: ALIA Carbajal 10/17/2019 16:09 documented in this encounter Plan of Treatment Date Type Specialty Care Team Description 11/06/2019 Office Visit Family Practice Amada Felton MD [address] [place] [address] [phone] Health Maintenance Due Date Last Done Comments MEDICARE ANNUAL WELLNESS 1945 VISIT URINE MICROALBUMIN 1945 ZOSTER IMMUNIZATION SERIES 1993 (1 of 2) PNEUMOCOCCAL 65+YRS (2 of 2 06/20/2018 06/20/2017, 09/05/2008, - PCV13) 02/25/2001 HEMOGLOBIN A1C 02/10/2020 08/11/2019, 05/08/2019, 04/17/2019, Additional history exists FALL RISK ASSESSMENT 03/24/2020 03/24/2019, 03/24/2019 FOOT EXAM 03/24/2020 03/24/2019, 03/24/2019, 03/24/2019, Additional history exists DTaP/Tdap/Td Vaccines (2 - 05/26/2020 05/26/2010, 05/26/2010 Tdap) Diabetic Eye Exam 09/14/2021 09/14/2019, 09/14/2019, 07/30/2018 DEPRESSION SCREENING 03/24/2022 Postponed from 1955 [...] your depression. Glycohemoglobin A1c < 7.0 Diabetes 5.7 (08/11/2019 10:38 No Amada Felton AM, MD Note: This is an individualized treatment [...] filedocumented in this encounter Visit Diagnoses Diagnosis Oral thrush Candidiasis of mouth Viral illness Unspecified viral infection, in conditions classified elsewhere and of unspecified site documented in this encounter Insurance Payer Benefit Plan / Subscriber ID Effective Dates Phone Address Type Group MEDICARE MEDICARE PART A [id number] 1973-Present Medicare & B MEDICAID [facility] [id number] 2018-Present Medicaid [place] documented as of this encounter"
--- OUTSIDE RECORDS SUMMARY | 2019-10-23 11:21 | XMS REPORT | Summary of Care ---
:1945 Author Organization [facility] Address [address] [facility] [place] [address] Care Team Providers Name Role Phone Amada Felton MD Primary Care Provider Reason for Visit Reason Comments Medication Check sedation for bath time Encounter Details Date Type Department Care Team Description 10/12/2019 Office Visit [place] [facility] P[facility]ima, Situational anxiety ( Primary Dx); Practice Amada Salinas MD Dementia with behavioral disturbance, unspecified dementia type ([facility]); [address] [facility] Depression, unspecified depression type; [place], [place] [id number] [place] [address] Type 2 diabetes mellitus without complication, without long-term current use of insulin ([facility]); [phone] Mary ([facility]) Allergies Active Allergy Reactions Severity Noted Date Comments Olayinka Inhibitors Unknown Reaction 01/26/2019 Cephalosporins Unknown Reaction 01/26/2019 Losartan Unknown Reaction 01/26/2019 ARB allergy listed in past records Penicillins Unknown Reaction 01/26/2019 Tricyclic Antidepressants Unknown Reaction 01/26/2019 documented as of this encounter (statuses as of 10/12/2019) Medications Medication Sig Dispensed Refills Start Date [...] Apply externally route. externally Gel POLYETH GLYC-PROPYLENE [place] in nose. 0 Active GLYC NA IBUPROFEN [...] complication, without long-term current use of insulin ([facility]) TRUEPLUS LANCETS 28G 1 Units by Does 100 Each 1 07/04/2019 Active Does not apply not apply route MiscIndications: Type 2 NEEDED ( diabetes mellitus NEEDED). without complication, without long-term current use of insulin ([facility]) polyethylene glycol Take 17 g by 1 [...] complication, without long-term current use of insulin ([facility]) metFORMIN (GLUCOPHAGE) TAKE 1 TABLET BY 30 Tab 11 08/15/2019 Active 500 MG Oral Tab MOUTH EVERY DAY MAY CRUSH Multiple Vitamin TAKE ONE TABLET 30 Tab 9 09/11/2019 Active (TAB-A-CIELO) Oral BY MOUTH EVERY TabIndications: DAY (DIET Cerebral palsy, SUPPLEMENT) unspecified type ([facility]) pravastatin (PRAVACHOL) TAKE 1 TABLET BY 30 Tab 4 09/11/2019 Active 10 MG Oral Tab MOUTH EVERY DAY ALPRAZolam (XANAX) 0.25 Take 1 Tab by 30 Tab 0 10/12/2019 Active MG Oral TabIndications: mouth DAILY Situational anxiety NEEDED (prior to bathing). Max Daily Amount: 0.25 mg. documented as of this encounter (statuses as of 10/12/2019) Active Problems Problem Noted Date Neurogenic bladder [...] as of this encounter (statuses as of 10/12/2019) Immunizations Name Administration Dates Next Due Influenza [...] Sign Reading Time Taken Comments Blood Pressure 120/80 10/12/2019 1:38 PM EST Pulse 88 10/12/2019 1:38 PM EST Temperature 36.5 10/12/2019 1:38 PM EST C (97.7 F) Respiratory Rate - - Oxygen Saturation 98% 10/12/2019 1:38 PM EST Inhaled Oxygen Concentration - - Weight 41.1 kg (90 lb 8 oz) 10/12/2019 1:38 PM EST Height - - Body Mass Index 21.03 05/12/2019 1:48 PM EDT documented in this encounter Patient Instructions Patient InstructionsAmada Felton MD - 10/12/2019 1:30 PM ESTDue to severe anxiety bathing, you may start alprazolam 0.25 mg about 20 minutes prior to a bath. It is a short acting sedative, so hopefully will not last longer than 2 hours or so. Let her psychiatrist know about this at her next visit. Call and stop it if she has any problems breathing on this or if sedation is excessive so she will not eat, then we will have to try half a tab. Patient Education Alprazolam (mauro grajeda) Brand Names: US ALPRAZolam Intensol; ALPRAZolam XR; Xanax; Xanax XR Brand Names: Kady ALPRAZolam TS; ALPRAZolam-1; APO-Alpraz; APO-Alpraz TS; JAMP -Alprazolam; MYLAN-ALPRAZolam [DSC]; TIANA-ALPRAZolam [DSC]; MADINA-ALPRAZolam [DSC] ; TEVA-Alprazolam; Xanax; Xanax TS Warning This drug is a benzodiazepine. The use of a benzodiazepine drug along with opioid drugs has ledto very bad side effects. Side effects that have happened include slowed or trouble breathing and . Opioid drugs include drugs like codeine, oxycodone, and morphine. Opioid drugs are used to treatpain and some are used to treat cough. Talk with the doctor. If you are taking this drug with an opioid drug, get medical help right away if you feel very sleepy or dizzy; if you have slow, shallow, or trouble breathing; or if you pass out. Caregivers or others need to get medical help right away if the patient does not respond, does not answer or react like normal , or will not wake up. What is this drug used for? It is used to treat anxiety. It is used to treat panic attacks. What do I need to tell my doctor BEFORE I take this drug? If you have an allergy to alprazolam or any other part of this drug. If you are allergic to this drug; any part of this drug; or any other drugs , foods, or substances. Tell your doctor about the allergy and what signs you had. If you have glaucoma. If you are taking any of these drugs: Itraconazole or ketoconazole. If you are breast-feeding. Do not breast-feed while you take this drug. This is not a list of all drugs or health problems that interact with this drug. Tell your doctor and pharmacist about all of your drugs (prescription or OTC, natural products, vitamins) and health problems. You must check to make sure that it is safe for you to take this drug withall of your drugs and health problems. Do not start, stop, or change the dose of any drug without checking with your doctor. What are some things I need to know or do while I take this drug? All products: Tell all of your health care providers that you take this drug. This includes your doctors, nurses, pharmacists, and dentists. This drug may be habit-forming with long-term use. If you have been taking this drug for a long time or at high doses, it may not work as well andyou may need higher doses to get the same effect. This is known as tolerance. Call your doctor if this drug stops working well. Do not take more than ordered. Avoid driving and doing other tasks or actions that call for you to be alert until you see how this drug affects you. Avoid drinking alcohol while taking this drug. Talk with your doctor before you use other drugs and natural products that slow your actions. Have your blood work checked if you are on this drug for a long time. Talk with your doctor. If you drink grapefruit juice or eat grapefruit often, talk with your doctor. If you start or stop smoking, talk with your doctor. How much drug you take may need to be changed. If you are 65 or older, use this drug with care. You could have more side effects. This drug may cause harm to the unborn baby if you take it while you are , especially in the first trimester. If you are or you get while taking this drug, call your doctor right away. Extended-release tablets: Do not stop taking this drug all of a sudden without calling your doctor. You may have a greater risk of signs of withdrawal. This includes seizures. If you need to stop this drug, you will want to slowly stop it as ordered by your doctor. All other products: If you have been taking this drug on a regular basis and you stop it all of a sudden, you may have signs of withdrawal. This includes seizures. Do not stop taking this drug all of a sudden withoutcalling your doctor. Tell your doctor if you have any bad effects. Oral-disintegrating tablet: If you have phenylketonuria (PKU), talk with your doctor. Some products have phenylalanine. What are some side effects that I need to call my doctor about right away? WARNING/CAUTION: Even though it may be rare, some people may have very bad and sometimes deadly sideeffects when taking a drug. Tell your doctor or get medical help right away if you have any of the following signs or symptoms that may be related to a very bad side effect: Signs of an allergic reaction, like rash; hives; itching; red, swollen, blistered, or peeling skin with or without fever; wheezing; tightness in the chest or throat; trouble breathing, swallowing,or talking; unusual hoarseness; or swelling of the mouth, face, lips, tongue, or throat. Signs of low mood (depression), thoughts of killing yourself, nervousness, emotional ups and downs, thinking that is not normal, anxiety, or lack of interest in life. Change in balance. Feeling very sleepy. Shortness of breath. Very bad dizziness or passing out. Feeling confused. Memory problems or loss. Trouble speaking. Trouble passing urine. Period (menstrual) changes. What are some other side effects of this drug? All drugs may cause side effects. However, many people have no side effects or only have minor side effects. Call your doctor or get medical help if any of these side effects or any other side effects bother you or do not go away: Feeling sleepy. Dizziness. Dry mouth. Feeling more or less hungry. Upset stomach. Constipation. Change in sex interest. Sex problems. Feeling tired or weak. Weight gain or loss. These are not all of the side effects that may occur. If you have questions about side effects, callyour doctor. Call your doctor for medical advice about side effects. You may report side effects to your national health agency. How is this drug best taken? Use this drug as ordered by your doctor. Read all information given to you. Follow all instructions closely. All products: Take with or without food. Take with food if it causes an upset stomach. Liquid (solution): Use the dropper that comes with this drug to measure the drug. Mix the liquid with water, juice, soda, applesauce, or pudding before taking it. Swallow the mixture right away. Do not store for use at a later time. Oral-disintegrating tablet: If the tablets come in a foil blister, do not push the tablet out of the foil when opening. Usedry hands to take it from the foil. Place on your tongue and let it dissolve. Water is not needed. Do not swallow it whole. Do not chew, break, or crush it. Extended-release tablets: Swallow whole. Do not chew, break, or crush. What do I do if I miss a dose? Extended-release tablets: Take a missed dose as soon as you think about it. If it is close to the time for your next dose, skip the missed dose and go back to your normal time. Do not take 2 doses at the same time or extra doses. All other products: If you take this drug on a regular basis, take a missed dose as soon as you think about it. If it is close to the time for your next dose, skip the missed dose and go back to your normal time. Do not take 2 doses at the same time or extra doses. Many times this drug is taken on an as needed basis. Do not take more often than told by the doctor. How do I store and/or throw out this drug? All products: Store at room temperature. Store in a dry place. Do not store in a bathroom. Keep all drugs in a safe place. Keep all drugs out of the reach of children and pets. Throw away unused or drugs. Do not flush down a toilet or pour down a drain unless you are told to do so. Check with your pharmacist if you have questions about the best way to throw out drugs. There may be drug take- back programs in your area. Liquid (solution): Protect from light. Throw away any part not used 90 days after opening. General drug facts If your symptoms or health problems do not get better or if they become worse, call your doctor. Do not share your drugs with others and do not take anyone else's drugs. Some drugs may have another patient information leaflet. If you have any questions about this drug, please talk with your doctor, nurse, pharmacist, or other health care provider. If you think there has been an overdose, call your poison control center or get medical care right away. Be ready to tell or show what was taken, how much, and when it happened. Consumer Information Use and Disclaimer This information should not be used to decide whether or not to take this medicine or any other medicine. Only the healthcare provider has the knowledge and training to decide which medicines are rightfor a specific patient. This information does not endorse any medicine as safe, effective, or approved for treating any patient or health condition. This is only a brief summary of general information about this medicine. It does NOT include all information about the possible uses, directions, warnings, precautions, interactions, adverse effects, or risks that may apply to this medicine. This information is not specific medical advice and does not replace information you receive from the healthcare provider. You must talk with the healthcare provider for complete information about the risks and benefits of using this medicine. Last Reviewed Date 2018-02-04 Copyright 2019 [employer] and its affiliates and/ or licensors. All rights reserved. documented in this encounter Progress Notes Amada Felton MD - 10/12/2019 1:30 PM EST Nursing Notes: Cierra Antoine LPN 10/12/2019 1:55 PM Signed Chief Complaint Patient presents with ? Medication Check sedation for bath time Cierra Antoine LPN 10/12/2019 1:57 PM Signed This report was requested by: Cierra Antoine | Reference #: [id number] [facility] resident, [facility] ? Prior PCP Dr Hebert in [place] Specialists: Psychiatrist: Dr Tavares Oncologist: Dr London Urologist: Dr Jess Omer [employer] Publisher: In [place] OT, Physical Therapy, ST Dentist SUBJECTIVE: Robb Paulino is an 74-y.o. female who presents because caretakers request sedation for bath time. She scream as soon as the water is turned on to bath, to the point of incontinence. Bath time is daily, between 9-10 am. She screams through it, defecates on the flood Her psychiatrist told them to call me. Psych has her on sertraline, haldol, Namenda, Nefazodone At night she sundown's badly. Hallucinates, cries out. She also has Type 2 diabetes mellitus. Laboratory tests are due in October Family history: unknown Previous treatment modalities employed include diet and oral agents. Current treatment includes diet and oral agents. Caretakers want to discuss sedation. She sun-downs at night: Cries, laughs Staff is trying music. Staff think she appears uncomfortable in her chair, current chair is an old back up chair Physical Therapy recommends a specific chair requirements which I ordered for her in July. Weight loss, from 98 to 90 lb. Nutrition recommends supplements, is on Glucerna. I asked that they monitor her weight. Speech recommends pureed diet, honey-thickened liquids; Order sent yesterday. Splint order never got sent, Aneesh Quinn Staff and nephew were starting MOLST discussion when I last saw her. Current monitoring regimen: home blood tests - weekly Last HgbA1c: Lab Results Component Value Date GLYCO 5.7 (H) 08/11/2019 GLYCO 6.0 (H) 05/08/2019 GLYCO 6.1 (H) 04/17/2019 Last eye exam: 07/2019 Last microalbumin: staff unable to obtain Last microfilament foot exam: 03/24/19 LDL: Lab Results Component Value Date CHOL 142 04/17/2019 TRIG 206 (H) 04/17/2019 HDL 33 (L) 04/17/2019 LDL 68 04/17/2019 LDLHDLRATIO 2.1 04/17/2019 CHOLHDLRATIO 4.3 04/17/2019 Immunizations: Immunization History Administered Date(s) Administered ? Influenza Vaccine 65 Yrs + 06/28/2019 ? Influenza Vaccine High Dose 06/30/2018 ? PNEUMOCOCCAL POLYSACCHARIDE VACCINE 02/25/2001, 09/05/2008, 06/20/2017 ? TDAP Vaccine 05/26/2010 ? TETANUS & DIPHTHERIA TOXOID (OVER 7 YRS) 05/26/2010 Diabetic complications: none Cardiovascular risk factors: diabetes mellitus Outpatient Medications as of 08/11/2019 Medication Sig Dispense Refill ? acetaminophen (TYLENOL) 325 MG Oral Tab Take 2 Tabs by mouth EVERY FOUR HOURS NEEDED (pain). Cancel 2 day limit. She may use daily if needed, max 3 grams daily 120 Tab 5 ? ammonium lactate (AMLACTIN, LAC-HYDRIN) 12 % Apply externally Cream 1 Appl by Topical route TWICE DAILY. ? aspirin 81 MG Oral Chew Tab Take 1 Tab by mouth DAILY. 30 Tab 5 ? baclofen (LIORESAL) 10 MG Oral Tab TAKE ONE TABLET BY MOUTH 3 TIMES A DAY (MUSCLE SPASMS) 90Tab 4 ? bisacodyl (BISCOLAX) [address] 10 mg per rectum NEEDED. 1 suupos into rectum on day 4 of no BM ? Blood Glucose Monitoring Suppl (TRUE METRIX AIR GLUCOSE METER) Does not apply Device 1 Stripby Does not apply route DAILY. E11.9 50 Device 11 ? carbamide peroxide (DEBROX) 6.5 % Otic Solution Place 4 Drops into both ears. As directed ? Cholecalciferol (VITAMIN D) 2000 units Oral Tab TAKE ONE TABLET BY MOUTH EVERY DAY AFTER DINNER WITH MEAT FAT OR OIL (DIET SUPPLEMENT) 30 Tab 9 ? clotrimazole (LOTRIMIN) 1 % Apply externally Cream Apply to rash right neck bid x 14 days.You can also use this as needed for groin or under breast fungal rashes. 24 g 0 ? Dimethicone (ALOE VESTA 2-N-1 SKIN COND EX) by Apply externally route. ? famotidine (PEPCID) 20 MG Oral Tab TAKE ONE TABLET BY MOUTH EVERY DAY 30 MINUTES BEFORE MEAL(HEARTBURN) 30 Tab 4 ? haloperidol (HALDOL) 2 MG/ML Oral Conc Take 2 mg by mouth DAILY. ? hydrocortisone (HYTONE) 1 % Apply externally [...] ? metFORMIN (GLUCOPHAGE) 500 MG Oral Tab Take 1 Tab by mouth DAILY. 30 Tab 5 ? metroNIDAZOLE (METROGEL) 1 % Apply externally Gel by Apply externally route. ? Mouthwashes (ANTISEPTIC MOUTH RINSE MT) by Mouth/Throat route. ? Multiple Vitamin Oral Tab Take 1 Tab by mouth DAILY. 30 Tab 5 ? Nefazodone 50 MG Oral Tab Take 25 mg by mouth TWICE DAILY. ? Nutritional Supplements (GLUCERNA ADVANCE SHAKE) Oral Liquid Take 1 Bottle by mouth NEEDED (nutrition management.). 30 Bottle 5 ? POLYETH GLYC-PROPYLENE GLYC NA [place] in nose. ? polyethylene glycol (MIRALAX) Oral Powder Take 17 g by mouth DAILY NEEDED (constipation of 3 days or more). Mix with 8 oz water or juice 1 Bottle 5 ? pravastatin (PRAVACHOL) 10 MG Oral Tab Take 10 mg by mouth DAILY. 30 Tab 5 ? Psyllium (REGULOID PO) Take by mouth. ? sertraline (ZOLOFT) 100 MG Oral Tab Take 100 mg by mouth DAILY. 1.5 tab daily ? Simethicone Extra Strength 125 MG Oral Cap Take 125 mg by mouth THREE TIMES DAILY NEEDED (gas/bloating). 90 Cap 5 ? Skin Protectants, Misc. (PETROLEUM JELLY EX) by Apply externally route. ? Sodium Phosphates (ENEMA) 7-19 GM/118ML Rectal Enema Place per rectum. ? TRUEPLUS LANCETS 28G Does not apply Misc 1 Units by Does not apply route NEEDED ( NEEDED). 100 Each 1 No current facility-administered medications on file as of 08/11/2019. Allergies Allergen Reactions ? Olayinka Inhibitors Unknown Reaction ? Cephalosporins Unknown Reaction ? Losartan Unknown Reaction ARB allergy listed in past records ? Penicillins Unknown Reaction ? Tricyclic Antidepressants Unknown Reaction Past Medical History: Diagnosis Date ? Cataract [...] ? Stasis edema of both lower extremities Past Surgical History: Procedure Laterality Date ? MASTECTOMY Right 2005 No family history on file. Social History Tobacco Use ? Smoking status: Never Smoker ? Smokeless tobacco: Never Used Substance Use Topics ? Alcohol use: Never Frequency: Never Review Of Systems per staff She has less interest in eating, losing weight. Nutrition is following and has her on supplements. She interacts less, sleeps more. They feel her dementia is wornsening Respiratory: Denies shortness of breath or URI symptoms Cardiovascular: negative for chest pain or pressure, no orthopnea Gastrointestinal: negative for abdominal pain, difficulty swallowing Genitourinary: negative for dysuria or frequency Musculoskeletal: negative for edema, negative for ankle pain Neurologic: negative for dizziness, syncope Psychiatric: she is very anxious with bathing, screams horribly, starts to sweat , becomes incontinent of stool. It starts as soon as she hears the water running. She is less interested in things she used to be interested in. OBJECTIVE: BP 120/80 | Pulse 88 | Temp 97.7 F (36.5 C) | Wt (!) 90 lb 8 oz ( 41.1 kg) | SpO2 98% | BMI 21.03 kg/m General appearance: sleeping, hunched in her wheelchair, no apparent disctress. Oropharynx: negative findings: lips normal without lesions Neck: Neck supple. No cervical or supraclavicular adenopathy. Thyroid symmetric , normal size. Carotids 4/4 without bruits. Lungs:. Lungs clear with good aeration. Chest symmetrical. Normal breath sounds bilaterally. Heart: Regular rate and rhythm. No murmurs, clicks or gallops. Abdomen: Abdomen soft, no apparent tenderness . Extremities: Extremities without edema Neuro: slept through most of the exam ASSESSMENT/PLAN: ICD-9-CM ICD-10-CM 1. Situational anxiety 300.09 F41.8 ALPRAZolam (XANAX) 0.25 MG Oral Tab 2. Dementia with behavioral disturbance, unspecified dementia type ([facility]) 294.21 F03.91 3. Depression, unspecified depression type 311 F32.9 4. Type 2 diabetes mellitus without complication, without long-term current use of insulin ([facility]) 250.00 E11.9 5. Mary ([facility]) 296.00 F30.9 Patient Instructions Due to severe anxiety bathing, you may start alprazolam 0.25 mg about 20 minutes prior to a bath. It is a short acting sedative, so hopefully will not last longer than 2 hours or so. Let her psychiatrist know about this at her next visit. Call and stop it if she has any problems breathing on this or if sedation is excessive so she will not eat, then we will have to try half a tab. Patient Education Alprazolam (mauro grajeda) Brand Names: US ALPRAZolam Intensol; ALPRAZolam XR; Xanax; Xanax XR Brand Names: Kady ALPRAZolam TS; ALPRAZolam-1; APO-Alpraz; APO-Alpraz TS; JAMP -Alprazolam; MYLAN-ALPRAZolam [DSC]; TIANA-ALPRAZolam [DSC]; MADINA-ALPRAZolam [DSC] ; TEVA-Alprazolam; Xanax; Xanax TS Warning This drug is a benzodiazepine. The use of a benzodiazepine drug along with opioid drugs has ledto very bad side effects. Side effects that have happened include slowed or trouble breathing and . Opioid drugs include drugs like codeine, oxycodone, and morphine. Opioid drugs are used to treatpain and some are used to treat cough. Talk with the doctor. If you are taking this drug with an opioid drug, get medical help right away if you feel very sleepy or dizzy; if you have slow, shallow, or trouble breathing; or if you pass out. Caregivers or others need to get medical help right away if the patient does not respond, does not answer or react like normal , or will not wake up. What is this drug used for? It is used to treat anxiety. It is used to treat panic attacks. What do I need to tell my doctor BEFORE I take this drug? If you have an allergy to alprazolam or any other part of this drug. If you are allergic to this drug; any part of this drug; or any other drugs , foods, or substances. Tell your doctor about the allergy and what signs you had. If you have glaucoma. If you are taking any of these drugs: Itraconazole or ketoconazole. If you are breast-feeding. Do not breast-feed while you take this drug. This is not a list of all drugs or health problems that interact with this drug. Tell your doctor and pharmacist about all of your drugs (prescription or OTC, natural products, vitamins) and health problems. You must check to make sure that it is safe for you to take this drug withall of your drugs and health problems. Do not start, stop, or change the dose of any drug without checking with your doctor. What are some things I need to know or do while I take this drug? All products: Tell all of your health care providers that you take this drug. This includes your doctors, nurses, pharmacists, and dentists. This drug may be habit-forming with long-term use. If you have been taking this drug for a long time or at high doses, it may not work as well andyou may need higher doses to get the same effect. This is known as tolerance. Call your doctor if this drug stops working well. Do not take more than ordered. Avoid driving and doing other tasks or actions that call for you to be alert until you see how this drug affects you. Avoid drinking alcohol while taking this drug. Talk with your doctor before you use other drugs and natural products that slow your actions. Have your blood work checked if you are on this drug for a long time. Talk with your doctor. If you drink grapefruit juice or eat grapefruit often, talk with your doctor. If you start or stop smoking, talk with your doctor. How much drug you take may need to be changed. If you are 65 or older, use this drug with care. You could have more side effects. This drug may cause harm to the unborn baby if you take it while you are , especially in the first trimester. If you are or you get while taking this drug, call your doctor right away. Extended-release tablets: Do not stop taking this drug all of a sudden without calling your doctor. You may have a greater risk of signs of withdrawal. This includes seizures. If you need to stop this drug, you will want to slowly stop it as ordered by your doctor. All other products: If you have been taking this drug on a regular basis and you stop it all of a sudden, you may have signs of withdrawal. This includes seizures. Do not stop taking this drug all of a sudden withoutcalling your doctor. Tell your doctor if you have any bad effects. Oral-disintegrating tablet: If you have phenylketonuria (PKU), talk with your doctor. Some products have phenylalanine. What are some side effects that I need to call my doctor about right away? WARNING/CAUTION: Even though it may be rare, some people may have very bad and sometimes deadly sideeffects when taking a drug. Tell your doctor or get medical help right away if you have any of the following signs or symptoms that may be related to a very bad side effect: Signs of an allergic reaction, like rash; hives; itching; red, swollen, blistered, or peeling skin with or without fever; wheezing; tightness in the chest or throat; trouble breathing, swallowing,or talking; unusual hoarseness; or swelling of the mouth, face, lips, tongue, or throat. Signs of low mood (depression), thoughts of killing yourself, nervousness, emotional ups and downs, thinking that is not normal, anxiety, or lack of interest in life. Change in balance. Feeling very sleepy. Shortness of breath. Very bad dizziness or passing out. Feeling confused. Memory problems or loss. Trouble speaking. Trouble passing urine. Period (menstrual) changes. What are some other side effects of this drug? All drugs may cause side effects. However, many people have no side effects or only have minor side effects. Call your doctor or get medical help if any of these side effects or any other side effects bother you or do not go away: Feeling sleepy. Dizziness. Dry mouth. Feeling more or less hungry. Upset stomach. Constipation. Change in sex interest. Sex problems. Feeling tired or weak. Weight gain or loss. These are not all of the side effects that may occur. If you have questions about side effects, callyour doctor. Call your doctor for medical advice about side effects. You may report side effects to your national health agency. How is this drug best taken? Use this drug as ordered by your doctor. Read all information given to you. Follow all instructions closely. All products: Take with or without food. Take with food if it causes an upset stomach. Liquid (solution): Use the dropper that comes with this drug to measure the drug. Mix the liquid with water, juice, soda, applesauce, or pudding before taking it. Swallow the mixture right away. Do not store for use at a later time. Oral-disintegrating tablet: If the tablets come in a foil blister, do not push the tablet out of the foil when opening. Usedry hands to take it from the foil. Place on your tongue and let it dissolve. Water is not needed. Do not swallow it whole. Do not chew, break, or crush it. Extended-release tablets: Swallow whole. Do not chew, break, or crush. What do I do if I miss a dose? Extended-release tablets: Take a missed dose as soon as you think about it. If it is close to the time for your next dose, skip the missed dose and go back to your normal time. Do not take 2 doses at the same time or extra doses. All other products: If you take this drug on a regular basis, take a missed dose as soon as you think about it. If it is close to the time for your next dose, skip the missed dose and go back to your normal time. Do not take 2 doses at the same time or extra doses. Many times this drug is taken on an as needed basis. Do not take more often than told by the doctor. How do I store and/or throw out this drug? All products: Store at room temperature. Store in a dry place. Do not store in a bathroom. Keep all drugs in a safe place. Keep all drugs out of the reach of children and pets. Throw away unused or drugs. Do not flush down a toilet or pour down a drain unless you are told to do so. Check with your pharmacist if you have questions about the best way to throw out drugs. There may be drug take- back programs in your area. Liquid (solution): Protect from light. Throw away any part not used 90 days after opening. General drug facts If your symptoms or health problems do not get better or if they become worse, call your doctor. Do not share your drugs with others and do not take anyone else's drugs. Some drugs may have another patient information leaflet. If you have any questions about this drug, please talk with your doctor, nurse, pharmacist, or other health care provider. If you think there has been an overdose, call your poison control center or get medical care right away. Be ready to tell or show what was taken, how much, and when it happened. Consumer Information Use and Disclaimer This information should not be used to decide whether or not to take this medicine or any other medicine. Only the healthcare provider has the knowledge and training to decide which medicines are rightfor a specific patient. This information does not endorse any medicine as safe, effective, or approved for treating any patient or health condition. This is only a brief summary of general information about this medicine. It does NOT include all information about the possible uses, directions, warnings, precautions, interactions, adverse effects, or risks that may apply to this medicine. This information is not specific medical advice and does not replace information you receive from the healthcare provider. You must talk with the healthcare provider for complete information about the risks and benefits of using this medicine. Last Reviewed Date 2018-02-04 Copyright 2019 [employer] and its affiliates and/ or licensors. All rights reserved. Author: Amada Felton MD 10/12/2019 14:18 documented in this encounter Plan of Treatment Date Type Specialty Care Team Description 11/06/2019 Office Visit Family [facility] Amada Felton MD [address] [place] [address] [phone] Health Maintenance Due Date Last Done Comments [...] Depression Depression No crystal Felton (PHQ-9) Amada Salinas total score < 5 Note: This is [...] filedocumented in this encounter Visit Diagnoses Diagnosis Situational anxiety Other anxiety states Dementia with behavioral disturbance, unspecified dementia type (HCC) Depression, unspecified depression type Type 2 diabetes mellitus without complication, without long-term current use of insulin (HCC) Mary (HCC) Bipolar I disorder, single manic episode, unspecified documented in this encounter Insurance Payer Benefit Plan / Subscriber ID Effective Dates Phone Address Type Group MEDICARE MEDICARE PART A [id number] 1973-Present Medicare & B MEDICAID [facility] [id number] 2018-Present [place] documented as of this encounter"
[2019-10-23 11:54] LABS: ABS Eosinophils 0.1 10^3/ul (0-0.6); ABS Lymphocytes 1.8 10^3/ul (1.0-4.8); ABS Monocytes 0.4 10^3/ul (0-0.8); ABS Neutrophils 7.4 10^3/ul (1.5-7.7); Eosinophil % 0.8 %; Hematocrit 46 % (35-47); Hemoglobin 14.9 g/dL (12.0-16.0); Lymphocyte % 18.9 %; Mean Corpuscular HGB Conc 33 g/dL (31-36); Mean Corpuscular Hemoglobin 27 pg (27-31); Mean Corpuscular Volume 84 fL (80-97); Mean Platelet Volume 9.2 fL (7.4-10.4); Platelet Count 219 10^3/uL (150-450); Red Blood Count 5.44 10^6 /uL (3.70-4.87); Red Cell Distribution Width 16 % (10-15); White Blood Count 9.8 10^3/uL (3.5-10.8)
[2019-10-23 12:00] LABS: INR 1.08 (0.82-1.09)
[2019-10-23 12:20] LABS: Albumin 4.3 g/dL (3.2-5.2); Albumin/Globulin Ratio 1.2 (1-3); BUN/Creatinine Ratio 41.5 (8-20); C Reactive Protein 10.5 mg/L (<8.01); Calcium 9.9 mg/dL (8.6-10.3); EGFR African American 107.2 (>60); EGFR Non-African American 88.6 (>60); Globulin 3.5 g/dL (2-4); Potassium 3.2 mmol/L (3.5-5.0); Total Bilirubin 0.3 mg/dL (0.2-1.0); Total Protein 7.8 g/dL (6.4-8.9); Troponin I 0.01 ng/mL (<0.03)
[2019-10-23 12:23] LABS: Influenza A Molecular Negative (Negative); Influenza B Molecular Negative (Negative)
[2019-10-23 12:59] LABS: Urine Appearance Cloudy; Urine Bilirubin Negative (Negative); Urine Blood Negative (Negative); Urine Color Amber; Urine Glucose Negative (Negative); Urine Ketones 1+ (Negative); Urine Nitrite Negative (Negative); Urine Protein Negative (Negative); Urine Specific Gravity 1.024 (1.010-1.030); Urine Urobilinogen Negative (Negative)
[2019-10-23 13:03] LABS: Urine Bacteria Absent (Absent); Urine Red Blood Cell 1+(3-5/hpf) (Absent); Urine Squamous Epithelial Cell Present (Absent); Urine White Blood Cell 2+(11-20/hpf) (Absent)
[2019-10-23] MEDS ORDERED: KCL 10 MEQ/50 ML IVPREMIX* 10 MEQ/50 ML BAG IV SCH (14:52)
[2019-10-23] MEDS ORDERED: NS 0.45% 1000 ML BAG* 1,000 ML IV SCH (15:00)
[2019-10-23] MEDS: Enoxaparin(*) 40 MG/0.4 ML SYR SUBCUT SCH (15:19)
[2019-10-23] MEDS: KCL 20 MEQ/100 ML IVPREMIX* 20 MEQ/100 ML BAG IV SCH ×2 (15:54→18:24)
[2019-10-23] MEDS ORDERED: Dextrose 50% VIAL 50 ml IV PUSH PRN (15:57)
[2019-10-23] MEDS: Insulin LISPRO* 1 UNITS UNIT SUBCUT SCH ×2 (17:15→22:53)
[2019-10-23] MEDS: Nystatin SUSPENSION* 100000 UNITS/ML 5 ML UDC PO SCH ×2 (17:18→22:53)
--- NOTE | 2019-10-23 18:50 | HP ---
ADMISSION HISTORY AND PHYSICAL: DATE OF ADMISSION: 10/23/19 PRIMARY CARE PHYSICIAN: Dr. Amada Felton. ADMITTING PHYSICIAN: Dr. Bhatti * (dictated by Steve Calderon, CB). CHIEF COMPLAINT: Altered mental status. HISTORY OF PRESENT ILLNESS: Ms. Paulino is a 74-year-old female with past medical history significant for developmental delay, cerebral palsy, diabetes, hypertension, dementia, who presented today to the emergency department with caregiver for complaints of altered mental status over the last few days. Ms. Paulino is unable to give answers to most questions, interview for HPI is otherwise being deferred to caregiver. Caregiver states that although she has not been with the patient every day, she noticed that since last or Wednesday, the patient has been much more quiet and lethargic. States she usually is yelling out every night and has not been doing that. States she also usually appears very uncomfortable with certain activities such as bathing and she has not been acting her usual. Has not had much food or drink over the weekend. The patient has baseline dementia. Caregiver states that she is usually calling out for her mother and screaming at nighttime, but the last couple nights she has not been doing this. States that over the weekend her blood pressure was 150/88, which is unusual for her. She has not been on medications for blood pressure per her caregiver for the last couple years and it is usually normal. Also states that her heart rate has been around 100, which is also unusual for her. Denies any knowledge of vomiting, diarrhea, any unusual symptoms, cough, fevers. The patient denies pain at this time. Able to give yes or no answers and denies pain to head, neck, chest, abdomen, legs. While in the emergency department, it was noted that the patient had a sodium level of 158. She did receive 1.22 L of normal saline while in the emergency department. Hospital Medicine was asked to evaluate this patient for admission in light of the electrolyte abnormalities and tachycardia. PAST MEDICAL HISTORY: 1. 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 2. History of breast cancer, invasive right ductal. 3. Diabetes mellitus type 2. 4. Osteopenia. 5. Urinary incontinence. 6. Bone and cartilage disorder. 7. Cataracts. 8. Depression. 9. Constipation. 10. Hiatal hernia. 11. GERD. 12. Neurogenic bladder. 13. Urinary tract infections. 14. Vitamin D deficiency. 15. Dementia. 16. Dermatitis. 17. Hypertension. 18. Rosacea. 19. Hyperlipidemia. 20. Pneumonia in 2017. PAST SURGICAL HISTORY: Right modified radical mastectomy in 2005. HOME MEDICATIONS: 1. Nystatin 100,000 units per 1 mL oral suspension, 5 mL by mouth 4 times daily. 2. Sertraline 100 mg tablets 1.5 tablets by mouth every morning. 3. Metformin 500 mg 1 tablet by mouth every day given with meal. 4. MiraLAX 17 g every evening. 5. Macrobid 100 mg 1 capsule by mouth every day. 6. Famotidine 20 mg 1 tablet by mouth every day 30 minutes before meal. 7. Vitamin D3 2000 units 1 tablet by mouth every day after dinner. 8. Multivitamin 1 tablet by mouth every day. 9. Reguloid laxative 1 tablespoon by mouth every day mixed in 8 ounces of fluid. 10. Debrox 6.5% otic solution 4 drops twice daily to both ears, then apply 4 drops weekly for prevention. 11. Nefazodone 50 mg 1 tablet by mouth 2 times a day. 12. Memantine 10 mg 1 tablet by mouth 2 times a day. 13. Antiseptic mouth rinse use as directed in the morning and at bedtime. 14. Metronidazole gel 1% apply to facial cheeks 2 times a day. 15. Baclofen 10 mg take 1 tablet by mouth 3 times a day. 16. Aspirin 81 mg 1 tablet by mouth every day. 17. Haloperidol 2 mg/mL, take 1 mL by mouth every evening. 18. Pravastatin 10 mg 1 tablet by mouth every day. 19. Ketoconazole 2% shampoo apply 2 times per week. 20. Glucerna shake drink 1 by mouth as needed. 21. Acetaminophen 325 mg 2 tabs by mouth every 4 hours as needed for pain or temp greater than 101. 22. Simethicone 125 mg 1 capsule by mouth 3 times a day as needed for gas or bloating. 23. Guaifenesin 100 mg/5 mL, give 10 mL every 4 hours p.r.n. cough or congestion. 24. Hydrocortisone 1% cream apply to itchy areas daily p.r.n. 25. Bacitracin 500 units per gram apply to affected areas p.r.n. for cuts/ abrasions. 26. Ibuprofen 200 mg tablets 1 tablet by mouth every 4 hours p.r.n. pain. 27. Petroleum jelly apply to clean dry skin 3 times a day and as needed. 28. Ammonium lactate 12% cream apply to clean dry skin 3 times a day as needed for skin protection. 29. Fleet Enema one enema per rectum as needed on day 5 of no BM. 30. Milk of magnesia 400/5, give 30 cc by mouth every 3 days if no BM p.r.n. 31. Bisacodyl 10 mg suppository, one suppository into rectum every 4 days if no BM p.r.n. ALLERGIES: 1. PENICILLIN. 2. CEPHALEXIN. 3. ANAFRANIL. 4. TRAZODONE. 5. ALINA INHIBITORS. 6. ANGIOTENSIN RECEPTOR BLOCKERS. 7. TOMATOES. FAMILY HISTORY: There is no known family health history per records. SOCIAL HISTORY: A surrogate decision maker for this patient is listed as her nephew, Hernan Hastings. Caregiver states they do not have much information. She lives in a intermediate setting at the [facility]. She is not a tobacco user or has any exposure to tobacco. Does not drink alcohol or use any illicit drugs. REVIEW OF SYSTEMS: A 10-point review of systems was completed with this patient and her caregiver. See HPI for all pertinent positives and negatives. PHYSICAL EXAMINATION CONSTITUTIONAL: The patient is lying in bed, appears to be in no acute distress. VITAL SIGNS: Temp 99.0, heart rate 99, respiratory rate 15, O2 sat 96%, blood pressure 149/79. HEENT: PERRL. No scleral icterus. LYMPHATIC: No cervical lymphadenopathy. RESPIRATORY: Lung sounds clear throughout. More diminished throughout right side. CARDIOVASCULAR: Heart rate regular. S1, S2 present. No murmurs, rubs, or gallops noted. No JVD. No edema. GI: Bowel sounds x4. Abdomen is soft. Mild distention. Able to palpate soft movable mass to mid left abdomen. The patient appeared uncomfortable during palpation. No organomegaly noted. MUSCULOSKELETAL: contractures of all extremities. Able to have slightly restricted range of motion with passive extension of all extremities. Musculature very atrophied. No point tenderness noted throughout the spine, neck, shoulders, or knees. NEURO: Alert, but unable to obtain orientation level. SKIN: Appears dry and intact. DIAGNOSTIC STUDIES/LAB DATA: Chest x-ray, impression: Shows no evidence for active cardiopulmonary disease. Noted that the lungs are under inflated and clear. EKG: Sinus rhythm with a rate of 95. Abdominal x-ray, impression: Large amount of stool was noted in the rectum and throughout the remainder of the colon with large amounts of the right colon as well. Labs: WBC 9.8, RBC 5.44, hemoglobin 14.9, hematocrit 46, RDW 16. INR 1.08. Sodium 158, potassium 3.2, chloride 114, carbon dioxide 31, anion gap 13, BUN 27 , creatinine 0.65, estimated GFR 88.6, BUN/creatinine ratio 41.5, glucose 155, lactic acid 1.4, calcium 9.9. Total bilirubin 0.3, AST 20, ALT 20, alk phos 70. Troponin 0.01. CRP 10.5. UA: Mary, cloudy urine, 1+ ketones, 1+ leukocyte esterase, 2+ wbc's, 1+ rbc's, present squamous epithelial cells, ascorbic acid present, absent bacteria, negative for nitrites, negative for urine glucose. Urine osmolality 779. Serology negative for influenza A and B. ASSESSMENT AND PLAN: Ms. Paulino is a 74-year-old female with past medical history significant for developmental delay, cerebral palsy, diabetes mellitus type 2, hyperlipidemia, hypertension, dementia, and a history of breast cancer. She presented today via her caretakers from her intermediate with complaints of altered mental status for the past few days. She was noted to be significantly hypernatremic with a sodium level of 158 as well as tachycardic. Hospital Medicine was asked to evaluate the patient for admission. 1. Altered mental status and hypernatremia. Sodium 158. Likely in relation to significant dehydration versus diabetes insipidus. No clinical concern for infection at this time. Possible constipation, which could be a contributing factor for dehydration as well as altered mental status. The patient is incontinent of urine. Estimated 2.4 L free water deficit. Has already received 1.22 L of isotonic solution in the ED. Continue Namenda. Strict I's and O's. Goldman catheter. Half-normal saline at 50 mL per hour. Low-sodium diet. Bisacodyl suppository x1 now. Nutrition consult. Continue to monitor. 2. History of hypertension. Maintaining good BP control since admission. Continue to monitor. 3. Diabetes mellitus type 2, controlled at home with metformin. Discontinue metformin. Fingersticks a.c. and h.s. Lispro sliding scale. 4. Hypokalemia. Potassium 3.2. KCl 20 mEq IV x2 runs. Labs to be drawn on . 5. Systemic inflammatory response syndrome. Mild tachycardia with occasional mild elevations in respiratory rate. Again, no clinical concern for infection at this time. Continue to monitor. 6. FEN: Low-sodium diet. Nutrition consult ordered. Half-normal saline at 50 mL per hour. 7. Code status: Full code. Confirmed with caregiver. 8. DVT prophylaxis: Lovenox. TIME SPENT: Approximately 75 minutes was spent on this admission with almost half of that being [id number] with the patient and her caregiver for interview , exam, and reviewing plan of care. This case has been reviewed by my attending physician, Dr. Bhatti, and she agrees with this plan. STEVE CALDERON, CB [id number]/CPS #: [id number] ROBIN
[2019-10-23] MEDS: Baclofen TAB* 10 MG PO SCH (22:52)
[2019-10-23] MEDS: Memantine TAB* 10 MG PO SCH (22:52)
[2019-10-24 06:43] LABS: BUN/Creatinine Ratio 38.8 (8-20); Calcium 8.3 mg/dL (8.6-10.3); EGFR African American 148.6 (>60); EGFR Non-African American 122.8 (>60); Potassium 3.6 mmol/L (3.5-5.0)
[2019-10-24] MEDS: Nystatin SUSPENSION* 100000 UNITS/ML 5 ML UDC PO SCH ×4 (08:43→22:02)
[2019-10-24] MEDS: CMCS: Pravastatin (NF) 20 MG TAB PO SCH (08:43)
[2019-10-24] MEDS: Baclofen TAB* 10 MG PO SCH ×3 (08:44→22:02)
[2019-10-24] MEDS: Sertraline* 50 MG TAB PO SCH (08:44)
[2019-10-24] MEDS: Famotidine TAB* 20 MG PO SCH (08:44)
[2019-10-24] MEDS: Memantine TAB* 10 MG PO SCH ×2 (08:45→22:02)
[2019-10-24] MEDS: Insulin LISPRO* 1 UNITS UNIT SUBCUT SCH ×4 (08:49→20:58)
[2019-10-24] MEDS ORDERED: Aspirin EC TAB* 81 MG TAB.EC PO SCH (09:00)
--- NOTE | 2019-10-24 13:43 | PN ---
Subjective Date of Service: 10/24/19 Interval History: Ms. Paulino will not wake to speak with me, but has been awake and talking with her director home health and nursing staff. Aide at the bedside is familiar with the patient, but does not know her well. She does note that the patient is much more lethargic than normal. No concerns from nursing. Family History: Unchanged from Admission Social History: Unchanged from Admission Past Medical History: Unchanged from Admission Objective Active Medications: Acetaminophen (Tylenol Tab*) 650 mg PO Q4H PRN PAIN - MILD Aspirin (Aspirin 81 Mg Chew Tab*) 81 mg PO DAILY [facility] Baclofen (Lioresal Tab*) 10 mg PO TID [facility] Bisacodyl (Dulcolax Supp*) 10 mg HI DAILY PRN CONSTIPATION Dextrose (Dextrose 50% Vial 50 Ml*) 25 ml IV PUSH .FOR FS < 60 - SS PRN FS < 60 Enoxaparin Sodium (Lovenox(*)) 40 mg SUBCUT Q24H [facility] Famotidine (Pepcid Tab*) 20 mg PO DAILY [facility] Sodium Chloride (Ns 0.45% 1000 Ml Bag*) 1,000 mls @ 50 mls/hr IV PER RATE [facility] Insulin Human Lispro (Humalog*) 0 units SUBCUT ACHS [facility]; Protocol Memantine (Namenda Tab*) 10 mg PO BID [facility] Nystatin (Nystatin Suspension*) 500,000 units PO QID [facility] Pravastatin Sodium (Pravachol (Nf)) 10 mg PO DAILY [facility] Sertraline HCl (Zoloft*) 150 mg PO DAILY [facility] Oxygen Devices in Use Now: None Appearance: Elderly female lying in bed in NAD Neck: NL Appearance and Movements; NL JVP, Trachea Midline Respiratory: Symmetrical Chest Expansion and Respiratory Effort, Clear to Auscultation Cardiovascular: NL Sounds; No Murmurs; No JVD, RRR Abdominal: NL Sounds; No Tenderness; No Distention Neurological: - - Drowsy but responds to voice Lines/Tubes/Other Access: Clean, Dry and Intact Peripheral IV Nutrition: Taking PO's Result Diagrams: 10/23/19 11:34 10/24/19 05:58 Assess/Plan/Problems-Billing Assessment: Ms. Paulino is a 74 yo F with PMH of CP with spastic quadriplegia and contractures, DM2, breast cancer in remission, depression, GERD, neurogenic bladder, dementia, HTN; who presented to the ED with AMS and was found to have hypernatremia. - Patient Problems (1) Hypernatremia Code(s): E87.0 - HYPEROSMOLALITY AND HYPERNATREMIA Comment: - Na 158 on admission, now 154 - Suspected secondary to dehydration - Continue 1/2NS (increase to 100mL/hr) (2) AMS (altered mental status) Code(s): R41.82 - ALTERED MENTAL STATUS, UNSPECIFIED Comment: - Suspected secondary to hypernatremia (3) Diabetes Code(s): E11.9 - TYPE 2 DIABETES MELLITUS WITHOUT COMPLICATIONS Comment: - Continue Lispro SS (4) Dysphagia Code(s): R13.10 - DYSPHAGIA, UNSPECIFIED Comment: - Baseline diet is pureed, honey thick liquids (5) GERD (gastroesophageal reflux disease) Code(s): K21.9 - GASTRO-ESOPHAGEAL REFLUX DISEASE WITHOUT ESOPHAGITIS Comment : - Continue famotidine (6) Cerebral palsy Code(s): G80.9 - CEREBRAL PALSY, UNSPECIFIED Comment: - Supportive care - Continue baclofen (7) Hyperlipidemia Code(s): E78.5 - HYPERLIPIDEMIA, UNSPECIFIED Comment: - Continue pravastatin (8) Depression Code(s): F32.9 - MAJOR DEPRESSIVE DISORDER, SINGLE EPISODE, UNSPECIFIED Comment: - Continue sertraline (9) DVT prophylaxis Comment: - Lovenox (10) Full code status Code(s): Z78.9 - OTHER SPECIFIED HEALTH STATUS Comment: Status and Disposition: Inpatient. Anticipate d/c home when medically stable. Attending: Ashu Aponte
[2019-10-24] MEDS ORDERED: NS 0.45% 1000 ML BAG* 1,000 ML IV SCH (13:51)
[2019-10-24] MEDS: Enoxaparin(*) 40 MG/0.4 ML SYR SUBCUT SCH (14:43)
[2019-10-24] MEDS: D5W 1000 ML BAG* 1,000 ML IV SCH (17:53)
[2019-10-24] MEDS: Acetaminophen TAB* 325 MG PO PRN (18:17)
[2019-10-25] MEDS: D5W 1000 ML BAG* 1,000 ML IV SCH (03:53)
[2019-10-25 05:55] LABS: BUN/Creatinine Ratio 31.7 (8-20); Calcium 7.9 mg/dL (8.6-10.3); EGFR African American 182.5 (>60); EGFR Non-African American 150.8 (>60); Potassium 3.1 mmol/L (3.5-5.0)
[2019-10-25] MEDS ORDERED: NS 0.9% 500 ML* 500 ML IV ONE (06:08)
[2019-10-25] MEDS: KCL 10 MEQ/50 ML IVPREMIX* 10 MEQ/50 ML BAG IV SCH ×3 (06:23→14:34)
[2019-10-25] MEDS: Insulin LISPRO* 1 UNITS UNIT SUBCUT SCH ×2 (07:52→11:40)
[2019-10-25] MEDS ORDERED: D5W 1/2 NS KCl 20 Meq 1000 ML* 1,000 ML IV SCH (08:00)
[2019-10-25] MEDS: Acetaminophen TAB* 325 MG PO PRN ×3 (08:23→20:31)
[2019-10-25] MEDS: Sertraline* 50 MG TAB PO SCH (08:24)
[2019-10-25] MEDS: Famotidine TAB* 20 MG PO SCH (08:24)
[2019-10-25] MEDS: Baclofen TAB* 10 MG PO SCH ×3 (08:24→20:32)
[2019-10-25] MEDS: CMCS: Pravastatin (NF) 20 MG TAB PO SCH (08:24)
[2019-10-25] MEDS: Memantine TAB* 10 MG PO SCH ×2 (08:24→20:32)
[2019-10-25] MEDS: Aspirin 81 mg CHEW TAB* 81 MG TAB.CHEW PO SCH (08:24)
[2019-10-25] MEDS: Nystatin SUSPENSION* 100000 UNITS/ML 5 ML UDC PO SCH ×4 (08:34→20:31)
--- NOTE | 2019-10-25 11:44 | PN ---
Subjective Date of Service: 10/25/19 Interval History: Patient is much more vocal today and near her baseline per aide who is present and familiar with her baseline. Patient denies CP, SOB, abdominal pain, N/V, or other pain. Per staff patient generally has a BM every morning when at home. Family History: Unchanged from Admission Social History: Unchanged from Admission Past Medical History: Unchanged from Admission Objective Active Medications: Acetaminophen (Tylenol Tab*) 650 mg PO Q4H PRN PRN Reason: PAIN - MILD Last Admin: 10/25/19 08:23 Dose: 650 mg Aspirin (Aspirin 81 Mg Chew Tab*) 81 mg PO DAILY [facility] Last Admin: 10/25/19 08:24 Dose: 81 mg Baclofen (Lioresal Tab*) 10 mg PO TID [facility] Last Admin: 10/25/19 08:24 Dose: 10 mg Bisacodyl (Dulcolax Supp*) 10 mg RI DAILY PRN PRN Reason: CONSTIPATION Dextrose (Dextrose 50% Vial 50 Ml*) 25 ml IV PUSH .FOR FS < 60 - SS PRN PRN Reason: FS < 60 Enoxaparin Sodium (Lovenox(*)) 40 mg SUBCUT Q24H [facility] Last Admin: 10/24/19 14:43 Dose: 40 mg Famotidine (Pepcid Tab*) 20 mg PO DAILY [facility] Last Admin: 10/25/19 08:24 Dose: 20 mg Insulin Human Lispro (Humalog*) 0 units SUBCUT ACHS [facility]; Protocol Last Admin: 10/25/19 07:52 Dose: Not Given Memantine (Namenda Tab*) 10 mg PO BID [facility] Last Admin: 10/25/19 08:24 Dose: 10 mg Nystatin (Nystatin Suspension*) 500,000 units PO QID [facility] Last Admin: 10/25/19 08:34 Dose: 500,000 units Pravastatin Sodium (Pravachol (Nf)) 10 mg PO DAILY [facility] Last Admin: 10/25/19 08:24 Dose: 10 mg Sertraline HCl (Zoloft*) 150 mg PO DAILY [facility] Last Admin: 10/25/19 08:24 Dose: 150 mg Oxygen Devices in Use Now: None Appearance: Patient is a 74yo female who appears stated age and is sitting in the bed, not opening her eyes. Eyes: No Scleral Icterus, PERRLA Ears/Nose/Mouth/Throat: NL Teeth, Lips, Gums, Clear Oropharnyx, Mucous Membranes Moist Neck: NL Appearance and Movements; NL JVP, Trachea Midline Respiratory: Symmetrical Chest Expansion and Respiratory Effort, Clear to Auscultation Cardiovascular: NL Sounds; No Murmurs; No JVD, RRR, No Edema Abdominal: NL Sounds; No Tenderness; No Distention, No Hepatosplenomegaly Lymphatic: No Cervical Adenopathy Extremities: No Edema Skin: No Rash or Ulcers, No Nodules or Sclerosis Result Diagrams: 10/23/19 11:34 10/25/19 05:28 Microbiology and Other Data: Microbiology 10/23/19 11:20 Aerobic Blood Culture - Preliminary Blood Venous No Growth Day 1 Anaerobic Blood Culture - Preliminary No Growth Day 1 10/23/19 11:18 Aerobic Blood Culture - Preliminary Blood Venous No Growth Day 1 Anaerobic Blood Culture - Preliminary No Growth Day 1 10/23/19 12:34 Urine Culture - Final Urine No Growth (<1,000 CFU/mL) 10/23/19 11:59 Nasal Screen MRSA (PCR) - Final Nasal Mrsa Not Detected Assess/Plan/Problems-Billing Assessment: Ms. Paulino is a 74 yo F with PMH of CP with spastic quadriplegia and contractures, DM2, breast cancer in remission, depression, GERD, neurogenic bladder, dementia, HTN; who presented to the ED with AMS and was found to have hypernatremia which improved with fluids. - Patient Problems (1) Hypernatremia Current Visit: Yes Status: Acute Code(s): E87.0 - HYPEROSMOLALITY AND HYPERNATREMIA SNOMED Code(s): 338097923 Comment: - Na 158 on admission, now 142 - Urinary output has been low, consistent with dehydration - Patient is taking in much more liquids at this time, stop IV fluids and monitor sodium (2) AMS (altered mental status) Current Visit: Yes Status: Acute Code(s): R41.82 - ALTERED MENTAL STATUS, UNSPECIFIED SNOMED Code(s): 417649592 Comment: - Suspected secondary to hypernatremia (3) Cerebral palsy Current Visit: Yes Status: Acute Code(s): G80.9 - CEREBRAL PALSY, UNSPECIFIED SNOMED Code(s): 579858369 Comment: - Supportive care - Continue baclofen (4) Hyperlipidemia Current Visit: Yes Status: Acute Code(s): E78.5 - HYPERLIPIDEMIA, UNSPECIFIED SNOMED Code(s): 17587685 Comment: - Continue pravastatin (5) Constipation Current Visit: No Status: Acute Code(s): K59.00 - CONSTIPATION, UNSPECIFIED SNOMED Code(s): 23386018 Comment: - Continue miralax with lactulose prn. - Avoid Fleet's enemas - Large amount of stool in colon on admission. (6) Dysphagia Current Visit: No Status: Acute Code(s): R13.10 - DYSPHAGIA, UNSPECIFIED SNOMED Code(s): 76394548 Comment: - Baseline diet is pureed, honey thick liquids (7) Full code status Current Visit: No Status: Acute Code(s): Z78.9 - OTHER SPECIFIED HEALTH STATUS SNOMED Code(s): 572919946 Comment: (8) Hypertension Current Visit: No Status: Acute Code(s): I10 - ESSENTIAL (PRIMARY) HYPERTENSION SNOMED Code(s): 13692630 Comment: Patient hypotensive now, plan for NS bolus. Continue to hold amlodipine (9) Pneumonia Current Visit: No Status: Acute Code(s): J18.9 - PNEUMONIA, UNSPECIFIED ORGANISM SNOMED Code(s): 566828139 Comment: Leukocytosis resolved, no O2 requirement. Cultures show no growth, and Legionella/pneumococcal Ag are negative. Swallow eval appreciated. Continue thin liquids and mechanical ground texture. Suspect a component of aspiration. Finish clindamycin for 7 day course. Continue levofloxacin - day 5/5 today. (10) UTI (urinary tract infection) Current Visit: No Status: Acute Comment: culture growing e. coli; sensitivities pending will de-escalate prior to discharge (allergic to pcn and cephalosporins) (11) Dementia Current Visit: No Status: Chronic Code(s): F03.90 - UNSPECIFIED DEMENTIA WITHOUT BEHAVIORAL DISTURBANCE SNOMED Code(s): 96749763 Comment: Continue Namenda. (12) Depression Current Visit: No Status: Chronic Code(s): F32.9 - MAJOR DEPRESSIVE DISORDER , SINGLE EPISODE, UNSPECIFIED SNOMED Code(s): 27099555 Comment: - Continue sertraline (13) Diabetes Current Visit: No Status: Chronic Code(s): E11.9 - TYPE 2 DIABETES MELLITUS WITHOUT COMPLICATIONS SNOMED Code(s): 06655260 Comment: - Stop SSI - Resume metformin (14) GERD (gastroesophageal reflux disease) Current Visit: No Status: Chronic Code(s): K21.9 - GASTRO-ESOPHAGEAL REFLUX DISEASE WITHOUT ESOPHAGITIS SNOMED Code(s): 535736904 Comment: - Continue famotidine (15) DVT prophylaxis Current Visit: No Status: Acute Code(s): OHC2698 - SNOMED Code(s): 054012480 Comment: - Lovenox Status and Disposition: Inpatient. Anticipate d/c home when medically stable.
--- NOTE | 2019-10-25 12:34 | PN ---
Progress Note - Progress Note Date of Service: 10/25/19 Note: [facility] and left message for Marisa pt's brother.
[2019-10-25] MEDS ORDERED: KCL 10 MEQ/50 ML IVPREMIX* 10 MEQ/50 ML BAG ONE (14:11)
[2019-10-25] MEDS: Enoxaparin(*) 40 MG/0.4 ML SYR SUBCUT SCH (14:40)
[2019-10-25] MEDS ORDERED: Haloperidol LIQ* 10 MG/5 ML UDC PO SCH (15:39)
[2019-10-25] MEDS: NEFAZODONE HCL 100 MG PO SCH (20:34)
[2019-10-26 06:21] LABS: ABS Eosinophils 0.1 10^3/ul (0-0.6); ABS Lymphocytes 0.9 10^3/ul (1.0-4.8); ABS Monocytes 0.3 10^3/ul (0-0.8); ABS Neutrophils 8.9 10^3/ul (1.5-7.7); Eosinophil % 1.4 %; Hematocrit 36 % (35-47); Hemoglobin 11.8 g/dL (12.0-16.0); Lymphocyte % 8.9 %; Mean Corpuscular HGB Conc 33 g/dL (31-36); Mean Corpuscular Hemoglobin 27 pg (27-31); Mean Corpuscular Volume 84 fL (80-97); Mean Platelet Volume 8.6 fL (7.4-10.4); Platelet Count 133 10^3/uL (150-450); Red Blood Count 4.32 10^6 /uL (3.70-4.87); Red Cell Distribution Width 16 % (10-15); White Blood Count 10.3 10^3/uL (3.5-10.8)
[2019-10-26 06:54] LABS: Calcium 8.6 mg/dL (8.6-10.3)
[2019-10-26 06:59] LABS: BUN/Creatinine Ratio 19.5 (8-20); C Reactive Protein 53.24 mg/L (<8.01); EGFR African American 182.5 (>60); EGFR Non-African American 150.8 (>60)
[2019-10-26] MEDS ORDERED: metFORMIN* 500 MG TAB PO SCH (09:00)
[2019-10-26] MEDS ORDERED: Midazolam* 1 MG/ML 5 ML VIAL (5 MG) ONE (09:00)
[2019-10-26] MEDS ORDERED: HYDROmorphone INJ1* 1 MG/ML SYRINGE ONE (09:17)
[2019-10-26] MEDS ORDERED: Propofol* 10 MG/ML 20 ML BTL ONE (09:17)
[2019-10-26] MEDS ORDERED: Dexamethasone IV* 4 MG/ML 1 ML (4 MG) ONE (10:50)
[2019-10-26] MEDS: Acetaminophen TAB* 325 MG PO PRN (11:40)
[2019-10-26] MEDS: NEFAZODONE HCL 100 MG PO SCH (11:41)
[2019-10-26] MEDS: Nystatin SUSPENSION* 100000 UNITS/ML 5 ML UDC PO SCH ×2 (11:41→15:05)
[2019-10-26] MEDS: Famotidine TAB* 20 MG PO SCH (11:42)
[2019-10-26] MEDS: CMCS: Pravastatin (NF) 20 MG TAB PO SCH (11:42)
[2019-10-26] MEDS: Sertraline* 50 MG TAB PO SCH (11:42)
[2019-10-26] MEDS: Baclofen TAB* 10 MG PO SCH ×2 (11:43→15:06)
[2019-10-26] MEDS: Memantine TAB* 10 MG PO SCH (11:43)
[2019-10-26] MEDS: Aspirin 81 mg CHEW TAB* 81 MG TAB.CHEW PO SCH (11:44)
[2019-10-26 13:51] LABS: Calcium 8.3 mg/dL (8.6-10.3); EGFR African American 177.5 (>60); EGFR Non-African American 146.7 (>60); Potassium 4.1 mmol/L (3.5-5.0)
[2019-10-26 14:44] VITALS: BP 141/86
[2019-10-26] MEDS: Enoxaparin(*) 40 MG/0.4 ML SYR SUBCUT SCH (15:30)
--- NOTE | 2019-10-26 16:44 | DS ---
CC: Dr. Amada Felton* DATE OF ADMISSION: 10/23/2019. DATE OF DISCHARGE: 10/26/2019. PRIMARY CARE PHYSICIAN: Dr. Amada Felton. MY ATTENDING PHYSICIAN WHILE IN THE HOSPITAL: Dr. Ashu Aponte* (dictated by ESAU Kelly). PRIMARY DISCHARGE DIAGNOSES: Hypernatremia, altered mental status likely due to hypernatremia, dehydration due to poor oral intake, constipation. SECONDARY DISCHARGE DIAGNOSES: Cerebral palsy with spastic quadriplegia, history of breast cancer, diabetes mellitus type 2, osteopenia, urinary incontinence, cataracts, depression, constipation, hiatal hernia, GERD, neurogenic bladder, current urinary tract infection, dementia, hypertension, rosacea, hyperlipidemia, vitamin D deficiency. STUDIES DONE WHILE IN THE HOSPITAL: 1. Chest x-ray from 10/23/2019, read as: No evidence for cardiopulmonary disease. 2. Abdomen x-ray from 10/23/2019, read as: Large amount of stool is noted in the rectum and throughout the remainder of the colon with large amounts in the right colon as well. MEDICATIONS AT DISCHARGE: 1. Baclofen 10 mg p.o. t.i.d. 2. Metformin 500 mg p.o. daily. 3. Memantine 10 mg p.o. b.i.d. 4. Tylenol 650 mg q.4 hours as needed. 5. Ibuprofen 200 mg p.o. q.4 hours as needed. 6. Hydrocortisone one application topical t.i.d. 7. Dulcolax suppository 10 mg p.r. as needed. 8. Famotidine 20 mg p.o. daily. 9. Vitamin D 2,000 units p.o. daily. 10. Multivitamin one tab p.o. daily. 11. Aspirin 81 mg p.o. daily. 12. Sertraline 150 mg p.o. daily. 13. Pravastatin 10 mg p.o. daily. 14. Haloperidol 2 mg p.o. q.p.m. 15. Ketoconazole one application topical twice weekly. 16. Magnesium Hydroxide 30 ml p.o. q.3 days. 17. Metronidazole 1% topical b.i.d. 18. MiraLax 17 gm p.o. daily as needed. 19. Glucerna 237 ml p.o. daily. 20. Simethicone 125 mg p.o. daily. 21. Nystatin suspension 5 ml q.i.d. 22. Nefazodone 50 mg p.o. daily. 23. Clotrimazole one application topical b.i.d. 24. Debrox four drops both ears daily as needed. 25. Ammonium lactate one application topical b.i.d. 26. Petrolatum one application topical daily. New medications at discharge: None. Medications discontinued at discharge: Adult sodium phosphate enema. HISTORY OF PRESENT ILLNESS: This is a brief summary of the patient's presentation. For more details, please see the history and physical from Ofelia Montalvo NP on 10/23/2019. In brief, this patient is a 74-year-old female with a past medical history significant for above who presented to the emergency department after two days of worsening mental status with very poor oral intake on two days before her admission. There is no obvious provocation for her change in mental status, although she has been having a six month decrease in the amount of fluid she has been taking in. The patient, due to poor oral intake and altered mental status, was sent to the emergency department and found to be markedly dehydrated with sodium of 158. The patient was started on initially half normal saline. Her free water deficit was calculated to 2.4 liters. The patient was not polyuric. The patient was then switched to D5W and her sodium decreased down to 142. The patient's mental status improved greatly. The patient had several bowel movements while an inpatient. Her abdominal x-ray showed a large amount of stool in the colon, but she showed no other signs of distress with her abdomen. The patient was encouraged to have oral intake while an inpatient. The patient's fluids were able to be stopped on 10/25/2019 and with encouragement for oral intake. The patient was able to have her sodium decreased even farther from 144 to 138 on the day of discharge. The patient was seen in consultation by Dr. Audra Champagne of Palliative Care to discuss the possibility for future feeding tube; however, the patient's healthcare proxy was unable to be consistently reached and though it was initially reported via the social worker masters that he was interested in filling out a DNR with no feeding tube, but he was unable to be reached and this was unable to be filled out and should be filled out as an outpatient. The patient was stable and amenable for discharge back to [facility] on 10/26/2019. PHYSICAL EXAMINATION ON THE DAY OF DISCHARGE: General: The patient is an 74- year- old female who appears younger than stated age and is sitting comfortably in bed, in no acute distress. Vital Signs: Temperature 97.9, pulse rate 102, respiratory rate 16, oxygen saturation 100 percent on room air, blood pressure 141/86. HEENT: Head normocephalic, atraumatic. Sclerae anicteric. No conjunctival injection. Nasal mucosa moist. Oral mucosa moist. No pharyngeal erythema, discharge, or exudate. Neck: Supple, nontender. No lymphadenopathy. No carotid bruits auscultated. No JVD. Cardiac: Regular rate and rhythm. No clicks, murmurs, gallops, or rubs. Pulses are 2+ in the bilateral dorsalis pedis, posterior tibialis, and radial areas. Respiratory: Clear to auscultation bilaterally. No wheezes, rales, or rhonchi. Good air exchange bilaterally. Abdomen: Soft, nontender, nondistended. Bowel sounds present. Normoactive in all four quadrants. No hepatosplenomegaly. No abdominal bruits auscultated. No hepatojugular reflux. Genitourinary: No suprapubic or CVA tenderness. Skin: Clean, dry, and intact. No rash. Neuro: Spastically quadriplegic in all four extremities. Alert and not oriented. Moderately interactive. Psychiatric: Screaming out, outwardly anxious. DISCHARGE PLAN BY PROBLEM: 1. Dehydration, hypernatremia: The patient's dehydration appears to be just from poor oral intake which may have been related to her constipation which was then feeding back upon itself with worsening oral intake due to altered mental status. The patient has no signs of diabetes insipidus or other polyuria. The patient was given fluids to bring this down acutely and then as her mental status improved, she was able to maintain her oral intake just with encouraged p.o. intake. This should be continued at her home as much as possible for her to support her own oral intake by mouth. Kaleb Shankar is not interested in a feeding tube at this time. If the patient's oral intake continues to decline, she will at some point soon need to make a decision about a feeding tube and if they are not in favor of this, this should be reflected on a MOLST form which should be filled out by the patient's healthcare proxy and her social worker masters through [employer]. Sodium phosphate enemas should be avoided in this patient due to the possibility of worsening dehydration and hypernatremia. 2. Spastic quadriplegia: Continue the patient's Baclofen. 3. Mood disorder: Continue the patient's Sertraline, Nefazodone, and Haloperidol. The patient screamed out frequently while in the hospital. This is reported to be her baseline. 4. Dementia: Continue the patient's Memantine. 5. Diabetes mellitus type 2: Continue the patient's Metformin. The patient does not need any further escalation of treatment for her glucose as it is unlikely to effect her outcome in any way. 6. Constipation: Continue bowel regimen as outlined above per facility protocol. DISPOSITION: Home. CONDITION ON DISCHARGE: Stable. TIME SPENT: Approximately 60 minutes were spent on the discharge of this patient, 30 of which was spent [id number] with the patient obtaining history and physical and discussing discharge plan. ESAU KELLY [id number]/CPS #: [id number] ROBIN
== END 2019-10-26 16:55 | disposition home or self-care (01) | DRG 640 ==
LOC: ED 10:16 → MED 14:37
PROVIDERS: ADMIT Hospitalist; ATTEND Internal Medicine
DX: E87.0 Hyperosmolality and hypernatremia (principal); J18.9 Pneumonia, unspecified organism; G80.0 Spastic quadriplegic cerebral palsy; N39.0 Urinary tract infection, site not specified; E86.0 Dehydration; K59.00 Constipation, unspecified; F03.90 Unspecified dementia, unspecified severity, without behavioral disturbance, psychotic disturbance, mood disturbance, and anxiety; E78.00 Pure hypercholesterolemia, unspecified; I10 Essential (primary) hypertension; K21.9 Gastro-esophageal reflux disease without esophagitis; F32.9 Major depressive disorder, single episode, unspecified; N31.9 Neuromuscular dysfunction of bladder, unspecified; E78.5 Hyperlipidemia, unspecified; L71.9 Rosacea, unspecified; K44.9 Diaphragmatic hernia without obstruction or gangrene; E87.6 Hypokalemia; R62.50 Unspecified lack of expected normal physiological development in childhood; R13.10 Dysphagia, unspecified; M85.80 Other specified disorders of bone density and structure, unspecified site; E55.9 Vitamin D deficiency, unspecified; E11.36 Type 2 diabetes mellitus with diabetic cataract; Z85.3 Personal history of malignant neoplasm of breast; Z88.0 Allergy status to penicillin; Z88.8 Allergy status to other drugs, medicaments and biological substances; Z91.018 Allergy to other foods; Z92.21 Personal history of antineoplastic chemotherapy; Z92.3 Personal history of irradiation; Z90.11 Acquired absence of right breast and nipple; Z79.84 Long term (current) use of oral hypoglycemic drugs; Z79.82 Long term (current) use of aspirin
CPT/HCPCS: 36415; 71045; 74018; 80048; 80053; 81003; 81015; 83605; 83735; 83935; 84300; 84484; 85025; 85610; 86140; 87040; 87086; 87641; 93005; 99284; A9270-GY; J1100; J1170; J1650; J2250; J2704; J3480

== ENCOUNTER 2019-10-30 09:03 | Emergency (ER) | payer MEDICARE, MEDICAID ==
--- NOTE | 2019-10-30 10:10 | ED ---
Altered Mental Status - HPI Summary HPI Summary: Patient is a 74y/o F presenting to the ED via EMS for a chief complaint of altered mental status. Patient is present with a home health staff member. Per staff member, patient has been increasingly fatigued and has had decreased responsiveness over the last month. Typically, patient screams when being bathed and with daily activities, which she has not done recently. Patient has had decreased urine output, dark urine, decreased food and fluid intake, and more somnolent than is usual for her. She also had a fever of 100.8 F on the night of 10/29/19. In the last month, patient has lost 8 pounds. EMS was called by staff at her residence for an increased respiratory rate of 32 that improved to 16 on route to [facility] by EMS. On 10/26/19, patient was discharged after being admitted to [facility] for similar symptoms. During her visit, patient's sodium and lithium levels were abnormal. Her staff member is unsure if the patient takes lithium. Patient's staff member states the patient has had no complaints, including myalgia. PMHx is significant for DM and breast cancer. Patient is on antibiotics for recurrent UTI. Patient does not ambulate at baseline. Her staff member notes patient could possibly have been exposed to influenza. Patient is a resident at [facility]. Patients medication reviewed this visit. HISTORY OF PRESENT ILLNESS IS LIMITED DUE TO LEVEL 5 CAVEAT - ALTERED MENTAL STATUS. - History Of Current Complaint Chief Complaint: EDAltMentalStatus Stated Complaint: FAILURE TO THRIVE PER EMS Time Seen by Provider: 10/30/19 09:16 Hx Obtained From: Family/Commissioner Of Conciliation - Home health staff member Hx From Patient Unobtainable Due To: Altered Mental Status Hx Last Menstrual Period: post Onset/Duration: Still Present Timing: Constant Severity Initially: Moderate Severity Currently: Moderate Character: Responsiveness - Decreased Aggravating Factor(s): Unknown Alleviating Factor(s): Unknown Associated Signs And Symptoms: Positive: Fever - In vitals, 98 F - Allergies/Home Medications Allergies/Adverse Reactions: Allergies Allergy/AdvReac Type Severity Reaction Status Date / Time ARB-Angiotensin Receptor Allergy Severe Unknown Verified 10/25/19 11:57 Antagonist Reaction Details ALINA Inhibitors Allergy Anaphylatic Verified 10/23/19 10:24 Shock Cephalosporins Allergy Unknown Verified 10/23/19 10:24 Reaction Details Penicillins Allergy Unknown Verified 10/23/19 10:24 Reaction Details tomato Allergy Hives Verified 10/23/19 10:24 trazodone Allergy Unknown Verified 10/23/19 10:24 Reaction Details Tricyclic Compounds Allergy Unknown Verified 10/23/19 10:24 Reaction Details Home Medications: Home Medications Acetaminophen TAB* [Tylenol TAB*] 650 mg PO Q4H PRN 12/31/16 [History Confirmed 10/30/19] Aspirin EC TAB* [Ecotrin EC Low Dose 81 MG*] 81 mg PO DAILY 12/31/16 [History Confirmed 10/30/19] Baclofen TAB* [Lioresal TAB*] 10 mg PO TID 12/31/16 [History Confirmed 10/30/19] Bisacodyl 10 mg SUPP [Dulcolax Supp*] 10 mg NM DAILY PRN 12/31/16 [History Confirmed 10/30/19] Cholecalciferol (Vitamin D3) [Vitamin D3] 2,000 unit PO DAILY 12/31/16 [History Confirmed 10/30/19] Famotidine TAB* [Pepcid 20 MG TAB*] 20 mg PO DAILY 12/31/16 [History Confirmed 10/30/19] Hydrocortisone 1% CREAM* [Hytone Cream 1%*] 1 applic TOPICAL BID 12/31/16 [ History Confirmed 10/30/19] Ibuprofen TAB* [Advil TAB*] 200 mg PO Q4HR PRN 12/31/16 [History Confirmed 10/29] Memantine TAB* [Namenda TAB*] 10 mg PO BID 12/31/16 [History Confirmed 10/30/19] Metformin ER (NF) 500 mg PO DAILY 12/31/16 [History Confirmed 10/30/19] Multivitamins/Minerals TAB* [Theragran/minerals TAB*] 1 tab PO DAILY 12/31/16 [ History Confirmed 10/30/19] Pravastatin (NF) [Pravachol (NF)] 10 mg PO DAILY 12/31/16 [History Confirmed 10/19] Sertraline* [Zoloft*] 150 mg PO DAILY MDD 150mg 12/31/16 [History Confirmed 10/19] Haloperidol CONC. EMY (NF) [Haloperidol CONC. SOLUTION (NF)] 2 mg PO QPM [History Confirmed 10/30/19] Ketoconazole 1 applic TOPICAL .TWICE WEEKLY 04/12/19 [History Confirmed 10/30/19 ] Magnesium Hydroxide LIQ* [Milk of Magnesia LIQ*] 30 ml PO Q3D PRN 04/12/19 [ History Confirmed 10/30/19] Nut.tx.gluc.intoler,Lac-Fr,Soy [Glucerna] 237 ml PO DAILY 04/12/19 [History Confirmed 10/30/19] Polyethylene Glycol 3350* [Miralax (17 GM DOSE FREDY)] 17 gm PO DAILY PRN [History Confirmed 10/30/19] metroNIDAZOLE [Metrogel] 1 % TOPICAL BID 04/12/19 [History Confirmed 10/30/19] Ammonium Lactate 12% [Lac-Hydrin 12 %] 1 applic TOPICAL TID 10/23/19 [History Confirmed 10/30/19] Carbamide Peroxide 6.5% OTIC* [DEBROX 6.5% Otic*] 4 drop BOTH EARS WEEKLY [History Confirmed 10/30/19] Clotrimazole 1% TOPICAL (NF) [Lotrimin 1% TOPICAL (NF)] 1 applic TOPICAL BID [History Confirmed 10/30/19] Nefazodone HCl TAB* [Serzone TAB*] 50 mg PO BID 10/23/19 [History Confirmed 10/19] Petrolatum,White [Petroleum Jelly] 1 applic TOPICAL TID 10/23/19 [History Confirmed 10/30/19] Simethicone TAB* [Mylicon TAB*] 125 mg PO TID PRN 10/23/19 [History Confirmed ] Bacitracin OINTMENT* 1 applic TOPICAL TID 10/30/19 [History Confirmed 10/30/19] Nitrofurantoin Macrocrystal [Nitrofurantoin] 100 mg PO DAILY 10/30/19 [History Confirmed 10/30/19] Nystatin SUSPENSION ORAL SYR* 300,000 units PO TID #120 ml 10/30/19 [Rx] Psyllium Husk/Aspartame [Reguloid Powder] 1 tbsp PO DAILY 10/30/19 [History Confirmed 10/30/19] Sodium Phosphate ADULT ENEMA* [Fleet Enema*] 1 enema NM DAILY PRN 10/30/19 [ History Confirmed 10/30/19] Sulfamethox/Trimethoprim DS* [Bactrim DS 800/160 TAB*] 1 tab PO BID #14 tab 10/19 [Rx] guaiFENesin 100 mg/5 ml LIQ [Robitussin 100 mg/5ml LIQ] 10 ml PO Q4H PRN [History Confirmed 10/30/19] PMH/Surg Hx/FS Hx/Imm Hx Previously Healthy: No - LIMITED DUE TO LEVEL 5 CAVEAT - ALTERED MENTAL STATUS. Endocrine/Hematology History: Reports: Hx Diabetes Denies: Hx Systemic Lupus Erythematosus Cardiovascular History: Reports: Hx Hypercholesterolemia - ?takes statin, Hx Hypertension Denies: Hx Congestive Heart Failure Respiratory History: Comment Only: Other Respiratory Problems/Disorders - HIATAL HERNIA History: Denies: Hx Dialysis, Hx Renal Disease Musculoskeletal History: Denies: Hx Rheumatoid Arthritis Sensory History: Reports: Hx Contacts or Glasses Denies: Hx Hearing Aid Opthamlomology History: Reports: Hx Contacts or Glasses Neurological History: Reports: Hx Dementia, Hx Developmental Delay, Other Neuro Impairments/Disorders - cerebral palsy - takes baclofen Psychiatric History: Reports: Hx Depression - zoloft - Cancer History Cancer Type, Location and Year: breast 2004 Hx Chemotherapy: Yes - chemo 2004 per code clerk Hx Radiation Therapy: Yes - 2004 - Surgical History Surgical History: Yes Surgery Procedure, Year, and Place: Right mastectomy 2004 Infectious Disease History: No Infectious Disease History: Denies: Traveled Outside the [place] in Last 30 Days - Family History Known Family History: Negative: Cardiac Disease, Hypertension - Social History Lives: Assisted Living Alcohol Use: None Hx Substance Use: No Substance Use Type: Reports: None Hx Tobacco Use: No Smoking Status (MU): Never Smoked Tobacco Review of Systems Positive: Fever - In vitals, 98 F, Fatigue, Other - Positive decreased fluid and food intake, weight loss of 8 pounds Positive: other - Positive decreased urine output and dark urine Negative: Myalgia Neurological/Mental Status: Other - Positive decreased responsiveness All Other Systems Reviewed And Are Negative: No - Comments Additional Review of Systems Comments: REVIEW OF SYSTEMS IS LIMITED DUE TO LEVEL 5 CAVEAT - ALTERED MENTAL STATUS. Physical Exam Triage Information Reviewed: Yes Vital Signs On Initial Exam: Initial Vitals Temp Pulse Resp BP Pulse Ox 98 F 85 18 114/61 97 10/30/19 09:04 10/30/19 09:04 10/30/19 09:04 10/30/19 09:04 10/30/19 09:04 Vital Signs Reviewed: Yes Procedures - Sedation Patient Received Moderate/Deep Sedation with Procedure: No Diagnostics - Vital Signs Vital Signs Temp Pulse Resp BP Pulse Ox 10/30/19 09:04 98 F 85 18 114/61 97 - Laboratory Result Diagrams: 10/30/19 09:53 10/30/19 09:53 Lab Statement: Any lab studies that have been ordered have been reviewed, and results considered in the medical decision making process. - CT Brain CT CT Interpretation Completed By: Radiologist Summary of CT Findings: Brain CT IMPRESSION: NO ACUTE INTRACRANIAL PATHOLOGY. DIFFUSE INVOLUTIONAL CHANGE WITH CHRONIC SMALL VESSEL ISCHEMIC CHANGES. Reviewed by Dr. Sousa. Abdomen/Pelvis CT CT Interpretation Completed By: Radiologist Summary of CT Findings: Abdomen/Pelvis CT IMPRESSION: #. Large volume of retained stool in the colon with severe rectal distention with stool. Negative for colonic volvulus or dilated small bowel loops to indicate bowel obstruction. Reviewed by Dr. Sousa. Re-Evaluation - Re-Evaluation First Eval Re-Evaluation Time: 12:38 Change: Unchanged Comment: At 12:38, patient had a straight cath placed. Patient is having an influenza swab taken. Second Eval Re-Evaluation Time: 13:44 Change: Unchanged Comment: At 13:44, I will write for an enema and IV Bactrim. Third Eval Re-Evaluation Time: 14:45 Change: Unchanged Comment: At 14:45, patient has oral thrush. Discharge ED - Sign-Out/Discharge Documenting (check all that apply): Patient Departure - Discharge - Discharge Plan Condition: Stable Disposition: HOME Prescriptions: Nystatin SUSPENSION ORAL SYR* 300,000 units PO TID #120 ml Sulfamethox/Trimethoprim DS* [Bactrim DS 800/160 TAB*] 1 tab PO BID #14 tab Patient Education Materials: Urinary Tract Infection in Women (ED), Oral Candidiasis (ED) Referrals: Amada Felton MD [Primary Care Provider] - Additional Instructions: - take antibiotics 2 times a day as prescribed until gone - encourage fluids - okay to use nystatin as prescribed for oral thrush - she should be rechecked this week by medical provider at center - Okay to use Tylenol as needed for fever - contact her doctor or return with any questions or concerns - Attestation Statements Document Initiated by Scribe: Yes Documenting Scribe: Elenita Chapman Provider For Whom Scribe is Documenting (Include Credential): Jacquelin Sousa MD Scribe Attestation: Elenita Fregoso, scribed for Jacquelin Sousa MD on 10/30/19 at 1731. Status of Scribe Document: Ready
[2019-10-30] MEDS ORDERED: Iodixanol* (CONTRAST) 320 MG/ML 100 ML SDV IV ONE (10:31)
[2019-10-30 11:34] LABS: ABS Lymphocytes 0.7 10^3/ul (1.0-4.8); ABS Monocytes 0.4 10^3/ul (0-0.8); ABS Neutrophils 7.8 10^3/ul (1.5-7.7); Eosinophil % 0.1 %; Hematocrit 34 % (35-47); Hemoglobin 11.5 g/dL (12.0-16.0); Lymphocyte % 7.7 %; Mean Corpuscular HGB Conc 34 g/dL (31-36); Mean Corpuscular Hemoglobin 28 pg (27-31); Mean Corpuscular Volume 83 fL (80-97); Mean Platelet Volume 8.9 fL (7.4-10.4); Platelet Count 177 10^3/uL (150-450); Red Blood Count 4.14 10^6 /uL (3.70-4.87); Red Cell Distribution Width 16 % (10-15); White Blood Count 8.9 10^3/uL (3.5-10.8)
[2019-10-30 11:47] LABS: Albumin 3.4 g/dL (3.2-5.2); BUN/Creatinine Ratio 45.7 (8-20); Calcium 8.9 mg/dL (8.6-10.3); EGFR African American 159.8 (>60); EGFR Non-African American 132.1 (>60); Globulin 3.4 g/dL (2-4); Magnesium 2.1 mg/dL (1.9-2.7); Potassium 3.5 mmol/L (3.5-5.0); Total Bilirubin 0.3 mg/dL (0.2-1.0); Total Protein 6.8 g/dL (6.4-8.9)
[2019-10-30] MEDS ORDERED: NS 0.9% 1000 ML** 1,000 ML IV ONE (12:38)
[2019-10-30 12:51] LABS: Urine Appearance Turbid; Urine Bilirubin Negative (Negative); Urine Blood 2+ (Negative); Urine Color Amber; Urine Glucose Negative (Negative); Urine Ketones 2+ (Negative); Urine Nitrite Positive (Negative); Urine Protein 1+(30 mg/dL) (Negative); Urine Specific Gravity 1.019 (1.010-1.030); Urine Urobilinogen Negative (Negative)
[2019-10-30 12:57] LABS: Urine Bacteria 2+ (Absent); Urine Red Blood Cell 2+(6-10/hpf) (Absent); Urine Squamous Epithelial Cell Present (Absent); Urine White Blood Cell 3+(>20/hpf) (Absent)
[2019-10-30] MEDS ORDERED: Sodium Phosphate ADULT ENEMA* 118 ml bottle PR ONE (13:24)
[2019-10-30 13:34] LABS: Influenza A Molecular Negative (Negative); Influenza B Molecular Negative (Negative)
[2019-10-30] MEDS ORDERED: TRIMETH IVPB ONE (14:30)
[2019-10-30] MEDS ORDERED: SULFAMETHOXAZOLE IVPB ONE (14:30)
[2019-10-30] MEDS ORDERED: D5W IVPB ONE (14:30)
[2019-10-30 17:53] VITALS: BP 115/57
--- NOTE | 2019-11-01 14:00 | ED ---
Imaging and Labs Follow Up Follow Up Type: Labs/Cultures Labs/Culture Result: Urine culture growing >100k pseudomonas. Patient Communication/Plan: Pt. treated with Bactrim which will not cover pseudomonas. Pt. resides at [facility]. I called and spoke with ESTELA Richards, at [facility] and discussed new treatment plan. Rx for Cipro sent to pharmacy. To dc Bactrim. Culture faxed over [phone].
== END 2019-10-30 17:52 | disposition home or self-care (01) ==
LOC: ED 09:03
DX: N39.0 Urinary tract infection, site not specified (principal); R50.9 Fever, unspecified; E11.9 Type 2 diabetes mellitus without complications; E78.00 Pure hypercholesterolemia, unspecified; I10 Essential (primary) hypertension; Z88.0 Allergy status to penicillin; Z79.82 Long term (current) use of aspirin; Z79.899 Other long term (current) drug therapy; R41.82 Altered mental status, unspecified; Z85.3 Personal history of malignant neoplasm of breast
CPT/HCPCS: 36415; 70450; 74177; 80053; 81003; 81015; 83605; 83735; 85025; 87040; 87077; 87086; 87186; 96360; 99284; A9270-GY; Q9967